=== PATIENT | male | born 1960 | race Caucasian/White ===

== ENCOUNTER → 2017-02-16 | Outpatient (CLI) | payer BC ==
[2017-02-16 08:26] LABS: ABSOLUTE BASOPHILS # (AUTO) 0.1 10^3/uL (0.0-0.2); ABSOLUTE EOSINOPHILS # (AUTO) 0.2 10^3/uL (0.0-0.6); ABSOLUTE LYMPHOCYTES (AUTO) 2.3 10^3/uL (0.5-4.7); ABSOLUTE MONOCYTES (AUTO) 0.5 10^3/uL (0.1-1.4); ABSOLUTE NEUT (AUTO) 5.9 10^3/uL (1.7-8.2); BASOPHILS % (AUTO) 0.9 % (0-2); EOSINOPHILS % (AUTO) 2.3 % (0-6); HEMATOCRIT 47.2 % (37.9-51.0); HEMOGLOBIN 16.6 g/dL (13.5-17.0); HGB HCT DIFFERENCE 2.6; LYMPHOCYTES % (AUTO) 25.3 % (13-45); MEAN CORPUSCULAR HEMOGLOBIN 32.5 pg (27.0-33.4); MEAN CORPUSCULAR HGB CONC 35.1 g/dL (32.0-36.0); MEAN CORPUSCULAR VOLUME 93 fl (80-97); MONOCYTES % (AUTO) 5.3 % (3-13); SEGMENTED NEUTROPHILS % (AUTO) 66.2 % (42-78); WHITE BLOOD COUNT 8.9 10^3/uL (4.0-10.5)
[2017-02-16 08:43] LABS: ALANINE AMINOTRANSFERASE 48 U/L (21-72); ALBUMIN 3.9 g/dL (3.5-5.0); ALKALINE PHOSPHATASE 116 U/L (38-126); ANION GAP 11 (5-19); ASPARTATE AMINO TRANSFERASE 35 U/L (17-59); BILIRUBIN,DIRECT 0.3 mg/dL (0.0-0.4); BILIRUBIN,TOTAL 0.9 mg/dL (0.2-1.3); BLOOD UREA NITROGEN 11 mg/dL (7-20); CALCIUM 9.5 mg/dL (8.4-10.2); CARBON DIOXIDE 24 mmol/L (22-30); CHLORIDE 100 mmol/L (98-107); CHOLESTEROL 184.84 mg/dL (0-200); CREATININE RESULT 0.74 mg/dL (0.52-1.25); Direct HDL 28 mg/dL (>40); GLUCOSE 316 mg/dL (75-110); SODIUM 134.9 mmol/L (137-145); TOTAL PROTEIN 6.9 g/dL (6.3-8.2); TRIGLYCERIDES 222 mg/dL (<150)
[2017-02-16 08:54] LABS: DIRECT LDL 129 mg/dL (<100)
[2017-02-16 09:14] LABS: VLDL CHOLESTEROL 44.4 mg/dL (10-31)
[2017-02-18 07:53] LABS: C-PEPTIDE 4.1 ng/mL (1.1-4.4); INSULIN 15.7 uIU/mL (2.6-24.9)
== END ==
LOC: OD 07:27
PROVIDERS: ATTEND Internal Medicine
DX: E78.5 Hyperlipidemia, unspecified (principal); R35.1 Nocturia; E11.9 Type 2 diabetes mellitus without complications; I10 Essential (primary) hypertension; R53.82 Chronic fatigue, unspecified
CPT/HCPCS: 36415; 80053; 80061; 82043; 83036; 83525; 84153; 84403; 84443; 84681; 85025

== ENCOUNTER → 2017-09-07 | Outpatient (CLI) | payer BC ==
[2017-09-07 07:51] LABS: ABSOLUTE BASOPHILS # (AUTO) 0.1 10^3/uL (0.0-0.2); ABSOLUTE EOSINOPHILS # (AUTO) 0.3 10^3/uL (0.0-0.6); ABSOLUTE LYMPHOCYTES (AUTO) 2.9 10^3/uL (0.5-4.7); ABSOLUTE MONOCYTES (AUTO) 0.7 10^3/uL (0.1-1.4); ABSOLUTE NEUT (AUTO) 8.4 10^3/uL (1.7-8.2); BASOPHILS % (AUTO) 1.2 % (0-2); EOSINOPHILS % (AUTO) 2.5 % (0-6); HEMATOCRIT 48.4 % (37.9-51.0); HEMOGLOBIN 16.9 g/dL (13.5-17.0); LYMPHOCYTES % (AUTO) 23.6 % (13-45); MEAN CORPUSCULAR VOLUME 91 fl (80-97); MONOCYTES % (AUTO) 5.3 % (3-13); PLATELET COUNT 271 10^3/uL (150-450); RED CELL DISTRIBUTION WIDTH 13.5 % (11.5-14.0); SEGMENTED NEUTROPHILS % (AUTO) 67.4 % (42-78); TOTAL CELLS COUNTED % (AUTO) 100 %; WHITE BLOOD COUNT 12.4 10^3/uL (4.0-10.5)
[2017-09-07 08:13] LABS: ALANINE AMINOTRANSFERASE 39 U/L (21-72); ALBUMIN 4.3 g/dL (3.5-5.0); ALKALINE PHOSPHATASE 120 U/L (38-126); ANION GAP 11 (5-19); ASPARTATE AMINO TRANSFERASE 20 U/L (17-59); BILIRUBIN,DIRECT 0.3 mg/dL (0.0-0.4); BILIRUBIN,TOTAL 0.6 mg/dL (0.2-1.3); BLOOD UREA NITROGEN 11 mg/dL (7-20); CARBON DIOXIDE 30 mmol/L (22-30); CHLORIDE 97 mmol/L (98-107); CHOLESTEROL 190.07 mg/dL (0-200); GLUCOSE 221 mg/dL (75-110); POTASSIUM 4.5 mmol/L (3.6-5.0); SODIUM 138.3 mmol/L (137-145); TOTAL PROTEIN 7.1 g/dL (6.3-8.2); TRIGLYCERIDES 304 mg/dL (<150)
[2017-09-07 08:23] LABS: DIRECT LDL 122 mg/dL (<100)
[2017-09-07 08:27] LABS: VLDL CHOLESTEROL 60.8 mg/dL (10-31)
== END ==
LOC: OD 07:08
PROVIDERS: ATTEND Internal Medicine
DX: E11.9 Type 2 diabetes mellitus without complications (principal); I10 Essential (primary) hypertension; E78.5 Hyperlipidemia, unspecified
CPT/HCPCS: 36415; 80053; 80061; 83036; 85025

== ENCOUNTER → 2018-04-23 | Outpatient (CLI) | payer BC ==
[2018-04-23 08:07] LABS: ABSOLUTE BASOPHILS # (AUTO) 0.1 10^3/uL (0.0-0.2); ABSOLUTE EOSINOPHILS # (AUTO) 0.3 10^3/uL (0.0-0.6); ABSOLUTE LYMPHOCYTES (AUTO) 2.9 10^3/uL (0.5-4.7); ABSOLUTE MONOCYTES (AUTO) 0.6 10^3/uL (0.1-1.4); ABSOLUTE NEUT (AUTO) 6.9 10^3/uL (1.7-8.2); BASOPHILS % (AUTO) 1.4 % (0-2); EOSINOPHILS % (AUTO) 2.8 % (0-6); HEMATOCRIT 46.2 % (37.9-51.0); HEMOGLOBIN 16.5 g/dL (13.5-17.0); LYMPHOCYTES % (AUTO) 26.5 % (13-45); MEAN CORPUSCULAR HEMOGLOBIN 32.7 pg (27.0-33.4); MEAN CORPUSCULAR HGB CONC 35.7 g/dL (32.0-36.0); MEAN CORPUSCULAR VOLUME 91 fl (80-97); MONOCYTES % (AUTO) 5.5 % (3-13); PLATELET COUNT 237 10^3/uL (150-450); RED BLOOD COUNT 5.06 10^6/uL (4.35-5.55); RED CELL DISTRIBUTION WIDTH 13.7 % (11.5-14.0); SEGMENTED NEUTROPHILS % (AUTO) 63.8 % (42-78); TOTAL CELLS COUNTED % (AUTO) 100 %; WHITE BLOOD COUNT 10.8 10^3/uL (4.0-10.5)
[2018-04-23 08:28] LABS: ALANINE AMINOTRANSFERASE 30 U/L (21-72); ALBUMIN 4.4 g/dL (3.5-5.0); ALKALINE PHOSPHATASE 98 U/L (38-126); ANION GAP 14 (5-19); ASPARTATE AMINO TRANSFERASE 29 U/L (17-59); BILIRUBIN,DIRECT 0.3 mg/dL (0.0-0.4); BLOOD UREA NITROGEN 13 mg/dL (7-20); CALCIUM 9.8 mg/dL (8.4-10.2); CARBON DIOXIDE 23 mmol/L (22-30); CHLORIDE 103 mmol/L (98-107); CHOLESTEROL 198.16 mg/dL (0-200); GLUCOSE 197 mg/dL (75-110); POTASSIUM 4.1 mmol/L (3.6-5.0); TOTAL PROTEIN 7.7 g/dL (6.3-8.2); TRIGLYCERIDES 182 mg/dL (<150)
[2018-04-23 08:39] LABS: DIRECT LDL 134 mg/dL (<100)
[2018-04-23 08:41] LABS: VLDL CHOLESTEROL 36.4 mg/dL (10-31)
== END ==
LOC: OD 07:42
PROVIDERS: ATTEND Internal Medicine
DX: E11.9 Type 2 diabetes mellitus without complications (principal); I10 Essential (primary) hypertension; E78.5 Hyperlipidemia, unspecified
CPT/HCPCS: 36415; 80053; 80061; 83036; 85025

== ENCOUNTER → 2018-08-19 | Outpatient (CLI) | payer BC ==
[2018-08-19 08:24] LABS: ABSOLUTE BASOPHILS # (AUTO) 0.1 10^3/uL (0.0-0.2); ABSOLUTE EOSINOPHILS # (AUTO) 0.3 10^3/uL (0.0-0.6); ABSOLUTE LYMPHOCYTES (AUTO) 2.2 10^3/uL (0.5-4.7); ABSOLUTE MONOCYTES (AUTO) 0.6 10^3/uL (0.1-1.4); ABSOLUTE NEUT (AUTO) 8.8 10^3/uL (1.7-8.2); BASOPHILS % (AUTO) 0.7 % (0-2); EOSINOPHILS % (AUTO) 2.3 % (0-6); HEMATOCRIT 47.8 % (37.9-51.0); HEMOGLOBIN 16.4 g/dL (13.5-17.0); LYMPHOCYTES % (AUTO) 18.3 % (13-45); MEAN CORPUSCULAR HEMOGLOBIN 31.6 pg (27.0-33.4); MEAN CORPUSCULAR HGB CONC 34.4 g/dL (32.0-36.0); MEAN CORPUSCULAR VOLUME 92 fl (80-97); MONOCYTES % (AUTO) 5.1 % (3-13); PLATELET COUNT 185 10^3/uL (150-450); RED CELL DISTRIBUTION WIDTH 13.1 % (11.5-14.0); SEGMENTED NEUTROPHILS % (AUTO) 73.6 % (42-78); TOTAL CELLS COUNTED % (AUTO) 100 %; WHITE BLOOD COUNT 11.9 10^3/uL (4.0-10.5)
[2018-08-19 08:49] LABS: ALANINE AMINOTRANSFERASE 17 U/L (21-72); ALBUMIN 4.6 g/dL (3.5-5.0); ALKALINE PHOSPHATASE 102 U/L (38-126); ANION GAP 15 (5-19); ASPARTATE AMINO TRANSFERASE 32 U/L (17-59); BILIRUBIN,DIRECT 0.3 mg/dL (0.0-0.4); BILIRUBIN,TOTAL 0.8 mg/dL (0.2-1.3); BLOOD UREA NITROGEN 9 mg/dL (7-20); CALCIUM 9.9 mg/dL (8.4-10.2); CARBON DIOXIDE 28 mmol/L (22-30); CHLORIDE 98 mmol/L (98-107); CHOLESTEROL 190.04 mg/dL (0-200); GLUCOSE 173 mg/dL (75-110); SODIUM 141.4 mmol/L (137-145); TOTAL PROTEIN 7.8 g/dL (6.3-8.2); TRIGLYCERIDES 151 mg/dL (<150)
[2018-08-19 09:00] LABS: DIRECT LDL 153 mg/dL (<100)
[2018-08-19 09:03] LABS: VLDL CHOLESTEROL 30.2 mg/dL (10-31)
[2018-08-19 09:54] LABS: PLATELET COMMENT ADEQUATE; RBC MORPHOLOGY COMMENT NORMO-CYTIC/CHROMIC
== END ==
LOC: OD 07:06
PROVIDERS: ATTEND Internal Medicine
DX: E11.8 Type 2 diabetes mellitus with unspecified complications (principal); I10 Essential (primary) hypertension; E78.5 Hyperlipidemia, unspecified; K57.90 Diverticulosis of intestine, part unspecified, without perforation or abscess without bleeding
CPT/HCPCS: 36415; 80053; 80061; 83036; 85025

== ENCOUNTER → 2018-08-23 | Outpatient (CLI) | payer BC ==
--- NOTE | 2018-08-26 12:05 | RADIOLOGY REPORT (SQ) ---
EXAM DESCRIPTION: MRI ABDOMEN COMBO COMPLETED DATE/TIME: 08/23/2018 7:40 pm REASON FOR STUDY: R19.00 INTRA-ABD AND PELVIC SWELLING, MASS AND LUMP, UNSP SITE R19.00 INTRA-ABD A ND PELVIC SWELLING, MASS AND LUMP, UNSP SI COMPARISON: No direct comparisons available. Correlation is made with 08/20/2018 CT abdomen report. TECHNIQUE: T1, T1 in and out of phase, T2 fat sat, T1 post gadolinium sequences. CONTRAST TYPE AND DOSE: 20 mL Dotarem. RENAL FUNCTION: GFR > 60. LIMITATIONS: None. FINDINGS: LIVER: Normal size. No masses. No dilated ducts. CBD normal. SPLEEN: Heterogeneous appearance with slightly hypoenhancing round nodule extending off the anterior mid spleen. This measures just under 4.5 cm. PANCREAS: Normal signal and enhancement throughout the head, body and most of the tail. Along the ta il of the pancreas, there is lobular intermediate T1 signal which partially enhances and extends to t he splenic hilum. Slightly lobulated appearance. Unclear if this is related to varices or true soft tissue mass. The region of abnormality measures at least 7 cm maximal dimension. GALLBLADDER: No masses. No stones. No gallbladder wall thickening or pericholecystic fluid. ADRENAL GLANDS: No significant masses or asymmetry. RIGHT KIDNEY AND URETER: No masses. No hydronephrosis. LEFT KIDNEY AND URETER: No masses. No hydronephrosis. AORTA AND VESSELS: Normal caliber aorta. Patent major arterial branches. Patent venous structures i ncluding the splenic vein as it courses along the tail of the pancreas. RETROPERITONEUM: No retroperitoneal adenopathy, hemorrhage or masses. BOWEL: No visualized masses. No inflammation. No significant dilatation. ABDOMINAL WALL AND PERITONEUM: No hernias. No free fluid. BONES: No acute or significant findings. OTHER: No other significant finding. IMPRESSION: 1. Mass along the tail of the pancreas. Unclear if this represents a solid lesion, sple nules or varices. Direct comparison with the prior CT is recommended. Addendum can be added to this report. Further evaluation with ultrasound may also be helpful. TECHNICAL DOCUMENTATION: JOB ID: [id number] [employer]- All Rights Reserved Reading location - IP/workstation name: [email or web address]
== END ==
LOC: RAD 19:05
PROVIDERS: ATTEND Internal Medicine
DX: K86.9 Disease of pancreas, unspecified (principal); R19.00 Intra-abdominal and pelvic swelling, mass and lump, unspecified site
CPT/HCPCS: 74183; 82565

== ENCOUNTER 2018-09-12 11:57 | Inpatient (IN) | payer BC ==
[2018-09-09 11:30] LABS: ABSOLUTE BASOPHILS # (AUTO) 0.1 10^3/uL (0.0-0.2); ABSOLUTE EOSINOPHILS # (AUTO) 0.2 10^3/uL (0.0-0.6); ABSOLUTE LYMPHOCYTES (AUTO) 1.7 10^3/uL (0.5-4.7); ABSOLUTE MONOCYTES (AUTO) 0.6 10^3/uL (0.1-1.4); ABSOLUTE NEUT (AUTO) 9.2 10^3/uL (1.7-8.2); BASOPHILS % (AUTO) 0.8 % (0-2); EOSINOPHILS % (AUTO) 1.9 % (0-6); HEMATOCRIT 42.4 % (37.9-51.0); HEMOGLOBIN 14.8 g/dL (13.5-17.0); LYMPHOCYTES % (AUTO) 14.2 % (13-45); MEAN CORPUSCULAR HEMOGLOBIN 31.5 pg (27.0-33.4); MEAN CORPUSCULAR VOLUME 90 fl (80-97); MONOCYTES % (AUTO) 5.4 % (3-13); PLATELET COUNT 140 10^3/uL (150-450); RED BLOOD COUNT 4.71 10^6/uL (4.35-5.55); RED CELL DISTRIBUTION WIDTH 12.9 % (11.5-14.0); SEGMENTED NEUTROPHILS % (AUTO) 77.7 % (42-78); TOTAL CELLS COUNTED % (AUTO) 100 %; WHITE BLOOD COUNT 11.9 10^3/uL (4.0-10.5)
[2018-09-09 11:33] LABS: INTERNATIONAL RATION (INR) 0.99; PROTHROMBIN TIME 13.6 SEC (11.4-15.4)
[2018-09-09 11:34] LABS: PARTIAL THROMBOPLASTIN TIME 32.9 SEC (23.5-35.8)
[2018-09-09 11:54] LABS: SODIUM 133.7 mmol/L (137-145)
--- NOTE | 2018-09-09 12:26 | RADIOLOGY REPORT (SQ) ---
EXAM DESCRIPTION: CHEST PA/LATERAL COMPLETED DATE/TIME: 09/09/2018 11:41 am REASON FOR STUDY: PRE-OP COMPARISON: 07/12/2010 EXAM PARAMETERS: NUMBER OF VIEWS: two views TECHNIQUE: Digital Frontal and Lateral radiographic views of the chest acquired. RADIATION DOSE: NA LIMITATIONS: none FINDINGS: LUNGS AND PLEURA: No opacities, masses or pneumothorax. No pleural effusion. MEDIASTINUM AND HILAR STRUCTURES: No masses or contour abnormalities. HEART AND VASCULAR STRUCTURES: Heart normal size. No evidence for failure. BONES: No acute findings. HARDWARE: None in the chest. OTHER: No other significant finding. IMPRESSION: NO SIGNIFICANT RADIOGRAPHIC FINDING IN THE CHEST. TECHNICAL DOCUMENTATION: JOB ID: [id number] [employer]- All Rights Reserved Reading location - IP/workstation name: [email or web address]
--- NOTE | 2018-09-09 16:32 | EKG REPORT ---
SEVERITY:- NORMAL ECG - SINUS RHYTHM : Confirmed by: Jody Lou MD 09-Sep-2018 16:32:32
[~2018-09-12 11:57] MED LIST: DEXAMETHASONE SOD PHOSPHATE INJ 4 MG/1 ML VIAL ONE; GLYCOPYRROLATE 1 MG/5 ML SYRINGE ONE; HEP B VACCINE/DP(A)T-POLIO INJ/PF 0.5 ML DISP.SYRIN IM PRN; LACTATED RINGERS 1000 ML IV PRN; LIDOCAINE 0.5% INJ-PF (5 MG/ML) 50 ML SDV SUBCUT PRN; NEOSTIGMINE METHYLSULFATE 10 MG/10 ML VIAL ONE; ONDANSETRON HCL INJ/PF 4 MG/2 ML SDV ONE; ROCURONIUM BROMIDE INJ 50 MG/5 ML VIAL IV ONE; SUCCINYLCHOLINE CHLORIDE INJ 200 MG/10 ML VIAL ONE
[2018-09-12] MEDS ORDERED: HYDROMORPHONE HCL INJ/PF 2 MG/ML AMPULE ONE (12:02)
[2018-09-12] MEDS ORDERED: ACETAMINOPHEN 1,000 MG/100 ML RTUPB IV ONE (12:03)
[2018-09-12] MEDS ORDERED: PROPOFOL INJ 200 MG/20 ML VIAL IV ONE (12:03)
[2018-09-12] MEDS ORDERED: MIDAZOLAM 2 MG/2 ML INJ ONE (12:03)
[2018-09-12] MEDS ORDERED: FENTANYL CITRATE INJ/PF 100 MCG/2 ML AMPUL ONE ×2 (12:03→16:31)
[2018-09-12] MEDS ORDERED: LIDOCAINE 2% INJ-PF (20 MG/ML) 10 ML AMPUL ONE (12:15)
[2018-09-12] MEDS ORDERED: BUPIVACAINE HCL 0.25% /EPINEPHRINE INJ/PF 30 ML SDV ONE (13:08)
[2018-09-12] MEDS ORDERED: METRONIDAZOLE 500 MG/NS RTU 500 MG/100 ML RTUPB IV ONE (13:55)
[2018-09-12] MEDS ORDERED: CEFAZOLIN INJ 1 GM VIAL ONE (13:55)
[2018-09-12] MEDS ORDERED: PROMETHAZINE HCL INJ 25 MG/1 ML VIAL IV PRN (15:17)
[2018-09-12] MEDS ORDERED: MEPERIDINE HCL/PF INJ 25 MG/1 ML DISP.SYRIN IV PRN (15:17)
[2018-09-12] MEDS ORDERED: MORPHINE SULFATE 10 MG/ML INJ IV PRN (15:17)
[2018-09-12] MEDS ORDERED: DIPHENHYDRAMINE HCL 50 MG/ML VIAL IV PRN (15:17)
[2018-09-12] MEDS ORDERED: FENTANYL CITRATE INJ/PF 100 MCG/2 ML AMPUL IV PRN ×3 (15:17)
[2018-09-12] MEDS: FENTANYL CITRATE INJ/PF 100 MCG/2 ML AMPUL ONE ×2 (17:18→17:23)
--- NOTE | 2018-09-12 17:54 | Operative Report ---
Operative Report DATE OF SURGERY: 09/12/18 PREOPERATIVE DIAGNOSIS: pancreatic mass POSTOPERATIVE DIAGNOSIS: pancreatic mass OPERATION: distal pancreatectomy/splenectomy SURGEON: MARGY RODRIGUEZ ANESTHESIA: GA TISSUE REMOVED OR ALTERED: pancrease and spleen COMPLICATIONS: none ESTIMATED BLOOD LOSS: 600cc INTRAOPERATIVE FINDINGS: large mass involving the body and tail pancrease and spleen PROCEDURE: Patient was brought to the operating room in awaken and stable condition placed the operative table supine position and induced under general anesthesia After adequate prep and drape needle was placed into the umbilicus and the abdomen was insufflated with 6 L of CO2 gas supraumbilical 10 mm incision was made with a 10 blade 10 mm port was placed into the abdominal cavity intra- abdominal visualization revealed no evidence of a varies needle or trocar injury To epigastric 5 mm ports were placed under direct vision a right left upper quadrant 5 mm port in the right lower quadrant 12 mm port all under direct vision Attention immediately to the stomach we began taking down the gastric colic ligament between the mid greater curvature the stomach and the angle of Hiss this was done with the LigaSure device. We reached the top of the stomach near the left slip of the aniket C RUC it became obvious that spleen and tail the pancreas had eroded itself to the left use of the diaphragm to build bulky mass involving the hilum. Came obvious at this point that this would not be resectable using laparoscopic technique and therefore like to to perform an open laparotomy. Which were removed pneumoperitoneum was reduced and a midline incision was made from the xiphoid to just below the umbilicus was carried down through subcutaneous tissue with Bovie cautery the midline fascia was entered with Bovie cautery. The falciform falciform ligament was divided with the LigaSure device to gain access to the upper abdomen we then placed a Bookwalter retractor in the upper abdomen and use the tract costal margin cephalad. The triangular ligament of the left lobe liver was taken down with the Bovie cautery to retracted medially to gain access to the left slip of the aniket. Completed the division of the gastrocolic ligament all the way tothe aniket and realized that the pancreas and spleen were fixed posteriorly to the gerotas fascia of the left kidney I did then incised the peritoneum the retroperitoneum on the inferior border of the pancreas at its mid body to the left of the left gastric artery and then came across the body the pancreas with 2 firings of the end of the LIBRADO stapler with a green load. We divided the pancreas to continue our mobilization of it towards the hilum of the spleen was able to take down the posterior splenic attachments with blunt and sharp dissection using Bovie cautery. It was completed we were able to remove the spleen and tail the pancreas as a unit and the down the pathology hemostasis was obtained with Bovie cautery and the LigaSure device then copiously irrigated the upper abdomen with normal saline and dry check the stomach for integrity noting a couple of serosal that were repaired with interrupted 2-0 silk oversewed the body of the pancreas fishmouth style using several sutures of 0 PDS. We then placed a Tian-Bell drain in the left upper quadrant next to the body this pancreas brought out through a stab wound in the left upper quadrant we then closed the midline fascia with a running double looped 0 PDS suture and then closed the skin with standard skin clips. Blood loss for the procedure was approximately 600 cc sponge needle counts were correct x2 the patient was awakened in the operating room extubated transferred to recovery in stable condition
[2018-09-12] MEDS ORDERED: MORPHINE SULFATE 60 MG/60 ML RTUINJ IV PRN (17:58)
[2018-09-12] MEDS: CEFAZOLIN 1 GM/D5W RTU 1 GM/50 ML RTUPB IV SCH (19:30)
[2018-09-12] MEDS ORDERED: POTASSI CL 30 MEQ/D5-1/2NS 1L 30 MEQ/1,000 ML RTUINJ IV PRN (20:00)
[2018-09-12] MEDS: METRONIDAZOLE 500 MG/NS RTU 500 MG/100 ML RTUPB IV SCH (21:20)
[2018-09-12] MEDS: HEPARIN SOD (PORCINE) 5,000 UNIT/ML 1 ML SYRINGE SUBCUT SCH (21:23)
[2018-09-12] MEDS ORDERED: DEXTROSE 40% GEL 15 GM TUBE X 2 PO PRN (23:00)
[2018-09-12] MEDS ORDERED: DEXTROSE 50%-WATER SYRINGE 12.5 GM/25 ML DOSE IV PRN (23:00)
[2018-09-12] MEDS ORDERED: DEXTROSE 50%-WATER SYRINGE 25 GM/50 ML DOSE IV PRN (23:00)
[2018-09-12] MEDS ORDERED: GLUCAGON,HUMAN RECOMB 1 MG INJ IM PRN (23:00)
[2018-09-12] MEDS ORDERED: DEXTROSE 40% GEL 15 GM TUBE PO PRN (23:00)
[2018-09-12] MEDS: INSULIN LISPRO 100 UNIT/ML 3 ML VIAL SUBCUT PRN (23:35)
[2018-09-13] MEDS: CEFAZOLIN 1 GM/D5W RTU 1 GM/50 ML RTUPB IV SCH ×3 (01:15→17:43)
[2018-09-13] MEDS: METRONIDAZOLE 500 MG/NS RTU 500 MG/100 ML RTUPB IV SCH ×3 (05:12→22:11)
[2018-09-13] MEDS: INSULIN LISPRO 100 UNIT/ML 3 ML VIAL SUBCUT PRN ×4 (06:48→22:23)
--- NOTE | 2018-09-13 08:24 | PDOC PROGRESS REPORT ---
Subjective Progress Note for:: 09/13/18 - pod #1 Reason For Visit: R19.02 LEFT UPPER QUADRANT ABDOMINAL SWELLING, MAS Physical Exam Vital Signs: Temp Pulse Resp BP Pulse Ox 98.7 F 104 H 16 132/76 H 98 09/12/18 23:35 09/12/18 23:35 09/12/18 23:35 09/12/18 23:35 09/12/18 23:35 Intake & Output 09/12/18 09/13/18 09/14/18 06:59 06:59 06:59 Intake Total 6990 Output Total 2195 Balance 4795 Weight 102.06 kg 100.4 kg General appearance: PRESENT: no acute distress Eye exam: PRESENT: EOMI, PERRLA GI/Abdominal exam: PRESENT: soft, tenderness - incisional tenderness rik with sero/sang op Results Laboratory Results: 09/09/18 10:48 09/12/18 12:29 09/12/18 12:29 Potassium 4.0 Glucose 243 H Impressions: Chest X-Ray 09/09/18 11:35 IMPRESSION: NO SIGNIFICANT RADIOGRAPHIC FINDING IN THE CHEST. Assessment & Plan - Plan Summary Plan Summary: up to chair today 'cont only ice chips cont mcclain till am labs pending insulin sliding scale.
[2018-09-13] MEDS: HEPARIN SOD (PORCINE) 5,000 UNIT/ML 1 ML SYRINGE SUBCUT SCH ×2 (09:42→22:11)
[2018-09-13] MEDS ORDERED: HEPARIN SOD (PORCINE) 5,000 UNIT/ML 1 ML SYRINGE ONE (09:46)
--- NOTE | 2018-09-13 13:56 | RADIOLOGY REPORT (SQ) ---
EXAM DESCRIPTION: KUB/ABDOMEN (SINGLE VIEW) COMPLETED DATE/TIME: 09/13/2018 1:48 pm REASON FOR STUDY: Check Placement of NG Tube R19.02 LEFT UPPER QUADRANT ABDOMINAL SWELLING, MASS AN D LUMP COMPARISON: MRI abdomen 08/23/2018 NUMBER OF VIEWS: One view. TECHNIQUE: Supine radiographic image of the abdomen acquired. LIMITATIONS: None. FINDINGS: BOWEL GAS PATTERN: Normal bowel gas pattern. No dilated loops. CALCIFICATIONS: No suspicious calcifications. SOFT TISSUES: No gross mass or suggestion of organomegaly. HARDWARE: Nasogastric tube tip and side port in the stomach. Left upper quadrant Tian-Bell drain . Midline abdominal skin jose. BONES: No acute fracture. No worrisome bone lesions. OTHER: No other significant finding. IMPRESSION: Nasogastric tube tip and side port in the stomach. Left upper quadrant Tian-Bell dr nickerson. Grossly nonobstructive bowel gas pattern TECHNICAL DOCUMENTATION: JOB ID: [id number] [employer]- All Rights Reserved Reading location - IP/workstation name: [email or web address]
[2018-09-14] MEDS: CEFAZOLIN 1 GM/D5W RTU 1 GM/50 ML RTUPB IV SCH ×3 (02:13→17:22)
[2018-09-14] MEDS: METRONIDAZOLE 500 MG/NS RTU 500 MG/100 ML RTUPB IV SCH ×3 (06:03→22:04)
--- NOTE | 2018-09-14 09:38 | PDOC PROGRESS REPORT ---
Subjective Progress Note for:: 09/14/18 - pod 2 Reason For Visit: R19.02 LEFT UPPER QUADRANT ABDOMINAL SWELLING, MAS Physical Exam Vital Signs: Temp Pulse Resp BP Pulse Ox 98.3 F 107 H 16 120/70 92 09/14/18 00:00 09/14/18 00:00 09/14/18 00:00 09/14/18 00:00 09/14/18 00:00 Intake & Output 09/13/18 09/14/18 09/15/18 06:59 06:59 06:59 Intake Total 6990 1070 100 Output Total 2195 3740 Balance 4795 -2670 100 Weight 100.4 kg 100.4 kg General appearance: PRESENT: no acute distress, cooperative GI/Abdominal exam: PRESENT: soft - abd soft, non tender few bs rki serous Results Laboratory Results: 09/09/18 10:48 09/12/18 12:29 Impressions: Chest X-Ray 09/09/18 11:35 IMPRESSION: NO SIGNIFICANT RADIOGRAPHIC FINDING IN THE CHEST. KUB X-Ray 09/13/18 12:37 IMPRESSION: Nasogastric tube tip and side port in the stomach. Left upper quadrant Tian-Bell drain. Grossly nonobstructive bowel gas pattern Assessment & Plan - Plan Summary Plan Summary: will clamp ng and check residuals remove mcclain
[2018-09-14] MEDS: HEPARIN SOD (PORCINE) 5,000 UNIT/ML 1 ML SYRINGE SUBCUT SCH ×2 (09:59→22:04)
[2018-09-14 11:09] LABS: HEMATOCRIT 34.9 % (37.9-51.0); HEMOGLOBIN 11.9 g/dL (13.5-17.0); MEAN CORPUSCULAR HEMOGLOBIN 31.2 pg (27.0-33.4); MEAN CORPUSCULAR HGB CONC 34.1 g/dL (32.0-36.0); MEAN CORPUSCULAR VOLUME 92 fl (80-97); PLATELET COUNT 302 10^3/uL (150-450); RED BLOOD COUNT 3.81 10^6/uL (4.35-5.55); WHITE BLOOD COUNT 26.4 10^3/uL (4.0-10.5)
[2018-09-14 11:27] LABS: ABSOLUTE LYMPHOCYTES# (MANUAL) 0.5 10^3/uL (0.5-4.7); ABSOLUTE MONOCYTES # (MANUAL) 1.8 10^3/uL (0.1-1.4); BASOPHILS % (MANUAL) 0 % (0-2); EOSINOPHILS % (MANUAL) 0 % (0-6); LYMPHOCYTES % (MANUAL) 2 % (13-45); MONOCYTES % (MANUAL) 7 % (3-13); SEGMENTED NEUTROPHILS % (MAN) 91 % (42-78); TOTAL CELLS COUNTED 100
[2018-09-14 11:28] LABS: PLATELET COMMENT ADEQUATE; RBC MORPHOLOGY COMMENT NORMO-CYTIC/CHROMIC
[2018-09-14 11:32] LABS: ANION GAP 13 (5-19); BLOOD UREA NITROGEN 15 mg/dL (7-20); CALCIUM 8.8 mg/dL (8.4-10.2); CARBON DIOXIDE 22 mmol/L (22-30); CHLORIDE 106 mmol/L (98-107); GLUCOSE 290 mg/dL (75-110); POTASSIUM 4.2 mmol/L (3.6-5.0); SODIUM 140.8 mmol/L (137-145)
[2018-09-14] MEDS: INSULIN LISPRO 100 UNIT/ML 3 ML VIAL SUBCUT PRN (14:13)
[2018-09-15] MEDS: INSULIN LISPRO 100 UNIT/ML 3 ML VIAL SUBCUT PRN ×5 (00:13→22:13)
[2018-09-15] MEDS: CEFAZOLIN 1 GM/D5W RTU 1 GM/50 ML RTUPB IV SCH ×3 (02:31→18:04)
[2018-09-15] MEDS: METRONIDAZOLE 500 MG/NS RTU 500 MG/100 ML RTUPB IV SCH ×3 (06:15→22:14)
--- NOTE | 2018-09-15 10:04 | PDOC PROGRESS REPORT ---
Subjective Progress Note for:: 09/15/18 Reason For Visit: R19.02 LEFT UPPER QUADRANT ABDOMINAL SWELLING, MAS post op day three mild c/o luq pain mostly in bed, did not ambulate yesterday Physical Exam Vital Signs: Temp Pulse Resp BP Pulse Ox 98.6 F 99 16 142/71 H 94 09/14/18 23:27 09/14/18 23:27 09/14/18 23:27 09/14/18 23:27 09/14/18 23:27 Intake & Output 09/14/18 09/15/18 09/16/18 06:59 06:59 06:59 Intake Total 1070 450 100 Output Total 3740 2080 Balance -2670 -1630 100 Weight 100.4 kg 100.4 kg Respiratory exam: PRESENT: clear to auscultation merissa, unlabored GI/Abdominal exam: PRESENT: other - abd soft, min tenderness, few bs rik with dark drainage, old blood vs pancreatic fluid mixed with blood. Results Laboratory Results: 09/14/18 10:07 09/14/18 10:07 09/14/18 09/14/18 10:07 10:07 WBC 26.4 H RBC 3.81 L Hgb 11.9 L Hct 34.9 L MCV 92 MCH 31.2 MCHC 34.1 RDW 13.0 Plt Count 302 Seg Neutrophils % Not Reportable Lymphocytes % Not Reportable Monocytes % Not Reportable Eosinophils % Not Reportable Basophils % Not Reportable Absolute Neutrophils Not Reportable Absolute Lymphocytes Not Reportable Absolute Monocytes Not Reportable Absolute Eosinophils Not Reportable Absolute Basophils Not Reportable Sodium 140.8 Potassium 4.2 Chloride 106 Carbon Dioxide 22 Anion Gap 13 BUN 15 Creatinine 0.80 Est GFR ( Amer) > 60 Est GFR (Non-Af Amer) > 60 Glucose 290 H Calcium 8.8 Impressions: Chest X-Ray 09/09/18 11:35 IMPRESSION: NO SIGNIFICANT RADIOGRAPHIC FINDING IN THE CHEST. KUB X-Ray 09/13/18 12:37 IMPRESSION: Nasogastric tube tip and side port in the stomach. Left upper quadrant Tian-Bell drain. Grossly nonobstructive bowel gas pattern Assessment & Plan - Plan Summary Plan Summary: no labs drawn today had elevated wbc yesterday will repeat labs today blood glucose improved pt will ambulate more today cont ng suction
[2018-09-15] MEDS: HEPARIN SOD (PORCINE) 5,000 UNIT/ML 1 ML SYRINGE SUBCUT SCH ×2 (10:45→22:13)
[2018-09-15 11:47] LABS: HEMATOCRIT 33.3 % (37.9-51.0); HEMOGLOBIN 11.2 g/dL (13.5-17.0); MEAN CORPUSCULAR HEMOGLOBIN 30.9 pg (27.0-33.4); MEAN CORPUSCULAR HGB CONC 33.7 g/dL (32.0-36.0); MEAN CORPUSCULAR VOLUME 92 fl (80-97); PLATELET COUNT 336 10^3/uL (150-450); RED BLOOD COUNT 3.64 10^6/uL (4.35-5.55); RED CELL DISTRIBUTION WIDTH 12.9 % (11.5-14.0); WHITE BLOOD COUNT 24.5 10^3/uL (4.0-10.5)
[2018-09-15 11:55] LABS: ANION GAP 9 (5-19); BLOOD UREA NITROGEN 15 mg/dL (7-20); CALCIUM 8.7 mg/dL (8.4-10.2); CARBON DIOXIDE 25 mmol/L (22-30); CHLORIDE 110 mmol/L (98-107); GLUCOSE 270 mg/dL (75-110); POTASSIUM 3.8 mmol/L (3.6-5.0); SODIUM 143.5 mmol/L (137-145)
[2018-09-15 12:06] LABS: ABSOLUTE MONOCYTES # (MANUAL) 2.2 10^3/uL (0.1-1.4); ABSOLUTE NEUTROPHILS# (MANUAL) 21.3 10^3/uL (1.7-8.2); BASOPHILS % (MANUAL) 0 % (0-2); EOSINOPHILS % (MANUAL) 0 % (0-6); LYMPHOCYTES % (MANUAL) 4 % (13-45); METAMYELOCYTES % (MANUAL) 1 % (0); MONOCYTES % (MANUAL) 9 % (3-13); SEGMENTED NEUTROPHILS % (MAN) 86 % (42-78); TOTAL CELLS COUNTED 100
[2018-09-15 12:08] LABS: PLATELET CLUMPS PRESENT; PLATELET COMMENT ADEQUATE; POLYCHROMASIA SLIGHT
[2018-09-16] MEDS: CEFAZOLIN 1 GM/D5W RTU 1 GM/50 ML RTUPB IV SCH ×3 (01:37→17:41)
[2018-09-16] MEDS: METRONIDAZOLE 500 MG/NS RTU 500 MG/100 ML RTUPB IV SCH ×3 (05:25→22:15)
--- NOTE | 2018-09-16 06:44 | PDOC PROGRESS REPORT ---
Subjective Progress Note for:: 09/16/18 Reason For Visit: R19.02 LEFT UPPER QUADRANT ABDOMINAL SWELLING, MAS pod # 4 distal pancreatectomy/splenectomy Physical Exam Vital Signs: Temp Pulse Resp BP Pulse Ox 98.2 F 92 19 130/80 H 90 L 09/16/18 00:00 09/16/18 00:00 09/16/18 00:00 09/16/18 00:00 09/16/18 00:00 Intake & Output 09/14/18 09/15/18 09/16/18 06:59 06:59 06:59 Intake Total 1070 450 650 Output Total 3740 2080 580 Balance -2670 -1630 70 Weight 100.4 kg 100.4 kg 98.3 kg General appearance: PRESENT: no acute distress Respiratory exam: PRESENT: clear to auscultation merissa, unlabored GI/Abdominal exam: PRESENT: other - abd soft, non tender wound ok Results Laboratory Results: 09/15/18 11:19 09/15/18 11:19 09/15/18 09/15/18 11:19 11:19 WBC 24.5 H RBC 3.64 L Hgb 11.2 L Hct 33.3 L MCV 92 MCH 30.9 MCHC 33.7 RDW 12.9 Plt Count 336 Seg Neutrophils % Not Reportable Lymphocytes % Not Reportable Monocytes % Not Reportable Eosinophils % Not Reportable Basophils % Not Reportable Absolute Neutrophils Not Reportable Absolute Lymphocytes Not Reportable Absolute Monocytes Not Reportable Absolute Eosinophils Not Reportable Absolute Basophils Not Reportable Sodium 143.5 Potassium 3.8 Chloride 110 H Carbon Dioxide 25 Anion Gap 9 BUN 15 Creatinine 0.70 Est GFR ( Amer) > 60 Est GFR (Non-Af Amer) > 60 Glucose 270 H Calcium 8.7 Impressions: Chest X-Ray 09/09/18 11:35 IMPRESSION: NO SIGNIFICANT RADIOGRAPHIC FINDING IN THE CHEST. KUB X-Ray 09/13/18 12:37 IMPRESSION: Nasogastric tube tip and side port in the stomach. Left upper quadrant Tian-Bell drain. Grossly nonobstructive bowel gas pattern Assessment & Plan - Plan Summary Plan Summary: still high ng op rik 130 yesterday no flatus, although feels it may start will cont ng today, start clamp trial monitor rik op wbc 24k yesterday- splenectomy awaing labs today cont iv abx.
[2018-09-16] MEDS: NORMAL SALINE 1000 ML 1,000 ML IV PRN (09:17)
[2018-09-16 09:26] LABS: HEMATOCRIT 36.8 % (37.9-51.0); HEMOGLOBIN 12.5 g/dL (13.5-17.0); MEAN CORPUSCULAR HEMOGLOBIN 31.2 pg (27.0-33.4); MEAN CORPUSCULAR HGB CONC 33.8 g/dL (32.0-36.0); MEAN CORPUSCULAR VOLUME 92 fl (80-97); PLATELET COUNT 491 10^3/uL (150-450); RED BLOOD COUNT 3.99 10^6/uL (4.35-5.55); RED CELL DISTRIBUTION WIDTH 12.6 % (11.5-14.0); WHITE BLOOD COUNT 22.8 10^3/uL (4.0-10.5)
[2018-09-16 09:52] LABS: ANION GAP 16 (5-19); BLOOD UREA NITROGEN 17 mg/dL (7-20); CALCIUM 8.9 mg/dL (8.4-10.2); CARBON DIOXIDE 21 mmol/L (22-30); CHLORIDE 112 mmol/L (98-107); GLUCOSE 308 mg/dL (75-110); POTASSIUM 3.8 mmol/L (3.6-5.0)
[2018-09-16] MEDS: HEPARIN SOD (PORCINE) 5,000 UNIT/ML 1 ML SYRINGE SUBCUT SCH ×2 (09:54→22:14)
[2018-09-16 10:01] LABS: ABSOLUTE LYMPHOCYTES# (MANUAL) 1.4 10^3/uL (0.5-4.7); ABSOLUTE MONOCYTES # (MANUAL) 1.4 10^3/uL (0.1-1.4); ABSOLUTE NEUTROPHILS# (MANUAL) 20.1 10^3/uL (1.7-8.2); BASOPHILS % (MANUAL) 0 % (0-2); EOSINOPHILS % (MANUAL) 0 % (0-6); LYMPHOCYTES % (MANUAL) 5 % (13-45); MONOCYTES % (MANUAL) 6 % (3-13); RBC MORPHOLOGY COMMENT NORMO-CYTIC/CHROMIC; SEGMENTED NEUTROPHILS % (MAN) 88 % (42-78); TOTAL CELLS COUNTED 100; TOXIC GRANULATION SLIGHT; TOXIC VACUOLATION PRESENT
[2018-09-16 10:02] LABS: PLATELET CLUMPS PRESENT; PLATELET COMMENT INCREASED; PLATELET LARGE PRESENT
[2018-09-16] MEDS: INSULIN LISPRO 100 UNIT/ML 3 ML VIAL SUBCUT PRN ×3 (11:54→22:15)
[2018-09-17] MEDS: NORMAL SALINE 1000 ML 1,000 ML IV PRN (01:41)
[2018-09-17] MEDS: CEFAZOLIN 1 GM/D5W RTU 1 GM/50 ML RTUPB IV SCH ×3 (01:42→17:40)
[2018-09-17] MEDS: METRONIDAZOLE 500 MG/NS RTU 500 MG/100 ML RTUPB IV SCH ×3 (06:17→22:25)
[2018-09-17] MEDS: INSULIN LISPRO 100 UNIT/ML 3 ML VIAL SUBCUT PRN ×4 (07:55→22:26)
--- NOTE | 2018-09-17 09:44 | PDOC PROGRESS REPORT ---
Subjective Progress Note for:: 09/17/18 Subjective:: Feels well. Hungry. Passing gas. Pain under good control. Reason For Visit: R19.02 LEFT UPPER QUADRANT ABDOMINAL SWELLING, MAS Physical Exam Vital Signs: Temp Pulse Resp BP Pulse Ox 98.2 F 110 H 18 116/76 98 09/17/18 00:00 09/17/18 08:29 09/17/18 08:29 09/17/18 08:29 09/17/18 08:29 Intake & Output 09/16/18 09/17/18 09/18/18 06:59 06:59 06:59 Intake Total 750 842 100 Output Total 580 820 Balance 170 22 100 Weight 98.3 kg 98 kg General appearance: PRESENT: no acute distress, cooperative Respiratory exam: PRESENT: clear to auscultation merissa Cardiovascular exam: PRESENT: tachycardia GI/Abdominal exam: PRESENT: soft - Soft, nondistended, mild diffuse abdominal tenderness with no peritoneal signs. Drain output is serous with no odor. Neurological exam: PRESENT: alert, awake Psychiatric exam: PRESENT: appropriate affect Results Laboratory Results: 09/16/18 09:12 09/16/18 09:12 09/16/18 09/16/18 09:12 09:12 WBC 22.8 H RBC 3.99 L Hgb 12.5 L Hct 36.8 L MCV 92 MCH 31.2 MCHC 33.8 RDW 12.6 Plt Count 491 H Seg Neutrophils % Not Reportable Lymphocytes % Not Reportable Monocytes % Not Reportable Eosinophils % Not Reportable Basophils % Not Reportable Absolute Neutrophils Not Reportable Absolute Lymphocytes Not Reportable Absolute Monocytes Not Reportable Absolute Eosinophils Not Reportable Absolute Basophils Not Reportable Sodium 149.0 H Potassium 3.8 Chloride 112 H Carbon Dioxide 21 L Anion Gap 16 BUN 17 Creatinine 0.72 Est GFR ( Amer) > 60 Est GFR (Non-Af Amer) > 60 Glucose 308 H Calcium 8.9 Impressions: Chest X-Ray 09/09/18 11:35 IMPRESSION: NO SIGNIFICANT RADIOGRAPHIC FINDING IN THE CHEST. KUB X-Ray 09/13/18 12:37 IMPRESSION: Nasogastric tube tip and side port in the stomach. Left upper quadrant Tian-Bell drain. Grossly nonobstructive bowel gas pattern Assessment & Plan - Diagnosis (1) Pancreatic mass Is this a current diagnosis for this admission?: Yes Plan: Status post distal pancreatectomy and splenectomy. Patient appears reasonably well. Mild tachycardia but abdomen is soft with minimal tenderness. NG tube output has been minimal overnight and patient is passing gas. Will DC his NG tube. Will start clear liquids.
[2018-09-17 10:14] LABS: HEMATOCRIT 36.4 % (37.9-51.0); HEMOGLOBIN 12.6 g/dL (13.5-17.0); MEAN CORPUSCULAR HEMOGLOBIN 31.4 pg (27.0-33.4); MEAN CORPUSCULAR HGB CONC 34.5 g/dL (32.0-36.0); MEAN CORPUSCULAR VOLUME 91 fl (80-97); PLATELET COUNT 542 10^3/uL (150-450); RED BLOOD COUNT 3.99 10^6/uL (4.35-5.55); RED CELL DISTRIBUTION WIDTH 12.9 % (11.5-14.0); WHITE BLOOD COUNT 24.6 10^3/uL (4.0-10.5)
[2018-09-17 10:36] LABS: ANION GAP 16 (5-19); BLOOD UREA NITROGEN 19 mg/dL (7-20); CALCIUM 8.9 mg/dL (8.4-10.2); CARBON DIOXIDE 23 mmol/L (22-30); CHLORIDE 112 mmol/L (98-107); GLUCOSE 300 mg/dL (75-110); POTASSIUM 3.7 mmol/L (3.6-5.0); SODIUM 151.2 mmol/L (137-145)
[2018-09-17 10:37] LABS: ABSOLUTE LYMPHOCYTES# (MANUAL) 1.7 10^3/uL (0.5-4.7); ABSOLUTE MONOCYTES # (MANUAL) 1.2 10^3/uL (0.1-1.4); ABSOLUTE NEUTROPHILS# (MANUAL) 21.6 10^3/uL (1.7-8.2); BASOPHILS % (MANUAL) 0 % (0-2); EOSINOPHILS % (MANUAL) 0 % (0-6); LYMPHOCYTES % (MANUAL) 7 % (13-45); MONOCYTES % (MANUAL) 5 % (3-13); PLATELET CLUMPS PRESENT; SEGMENTED NEUTROPHILS % (MAN) 88 % (42-78); TOTAL CELLS COUNTED 100; TOXIC GRANULATION SLIGHT; TOXIC VACUOLATION PRESENT
[2018-09-17] MEDS: HEPARIN SOD (PORCINE) 5,000 UNIT/ML 1 ML SYRINGE SUBCUT SCH ×2 (10:52→22:25)
[2018-09-17] MEDS: OCTREOTIDE ACETATE INJ/PF 100 MCG/1 ML SDV IV SCH ×2 (14:03→22:26)
[2018-09-17] MEDS ORDERED: DEXTROSE 40% GEL 15 GM TUBE PO PRN ×2 (15:09)
[2018-09-17] MEDS ORDERED: DEXTROSE 50%-WATER 25 GM/50 ML DISP.SYRIN IV PRN ×2 (15:09)
[2018-09-17] MEDS ORDERED: GLUCAGON,HUMAN RECOMB 1 MG INJ SUBCUT PRN (15:09)
--- NOTE | 2018-09-17 15:09 | PDOC PROGRESS REPORT ---
Subjective Progress Note for:: 09/17/18 Subjective:: Patient had sudden onset of malaise with nausea and abdominal pain. Was noted with hypotension with systolic blood pressure of 80. Patient denies any presyncopal symptoms at this time but states that he does not feel well. Reason For Visit: R19.02 LEFT UPPER QUADRANT ABDOMINAL SWELLING, MAS Physical Exam Vital Signs: Temp Pulse Resp BP Pulse Ox 98.1 F 115 H 18 117/75 99 09/17/18 11:51 09/17/18 11:51 09/17/18 11:51 09/17/18 11:51 09/17/18 11:51 Intake & Output 09/16/18 09/17/18 09/18/18 06:59 06:59 06:59 Intake Total 750 842 150 Output Total 580 820 50 Balance 170 22 100 Weight 98.3 kg 98 kg General appearance: PRESENT: mild distress Eye exam: PRESENT: conjunctiva pink Cardiovascular exam: PRESENT: tachycardia - Heart rate of 116 with blood pre ssure of 106/70. GI/Abdominal exam: PRESENT: other - Soft, nondistended, tender at is epigastric in the left mid abdomen without peritoneal signs. JF drain has copious amounts of yellow slightly brown tinged clear fluid. After application of suction on the drain about 300 cc drained out with patient feeling much better. Nonbloody output. Results Laboratory Results: 09/17/18 09:43 09/17/18 09:43 09/17/18 09/17/18 09:43 09:43 WBC 24.6 H RBC 3.99 L Hgb 12.6 L Hct 36.4 L MCV 91 MCH 31.4 MCHC 34.5 RDW 12.9 Plt Count 542 H Seg Neutrophils % Not Reportable Lymphocytes % Not Reportable Monocytes % Not Reportable Eosinophils % Not Reportable Basophils % Not Reportable Absolute Neutrophils Not Reportable Absolute Lymphocytes Not Reportable Absolute Monocytes Not Reportable Absolute Eosinophils Not Reportable Absolute Basophils Not Reportable Sodium 151.2 H Potassium 3.7 Chloride 112 H Carbon Dioxide 23 Anion Gap 16 BUN 19 Creatinine 0.75 Est GFR ( Amer) > 60 Est GFR (Non-Af Amer) > 60 Glucose 300 H Calcium 8.9 Impressions: Chest X-Ray 09/09/18 11:35 IMPRESSION: NO SIGNIFICANT RADIOGRAPHIC FINDING IN THE CHEST. KUB X-Ray 09/13/18 12:37 IMPRESSION: Nasogastric tube tip and side port in the stomach. Left upper quadrant Tian-Bell drain. Grossly nonobstructive bowel gas pattern Assessment & Plan - Diagnosis (1) Pancreatic mass Is this a current diagnosis for this admission?: Yes (2) Pancreatic fluid leak Is this a current diagnosis for this admission?: Yes Plan: Postoperative pancreatic leak most likely. Will check fluid for amylase. Will check laboratory studies including hematocrit to rule out a postoperative bleed although his drain output is non-bloody. Will make the patient n.p.o. IV fluids. Patient already on octreotide. Patient feeling much better after suctioning the fluid out. Will discuss with nursing staff to keep the JF drain bulb recurrently emptied and squeezed for suction for now.
[2018-09-17] MEDS ORDERED: NORMAL SALINE 1000 ML 1,000 ML IV PRN (15:10)
[2018-09-17 15:58] LABS: HEMATOCRIT 38.1 % (37.9-51.0); HEMOGLOBIN 12.9 g/dL (13.5-17.0); MEAN CORPUSCULAR HEMOGLOBIN 31.1 pg (27.0-33.4); MEAN CORPUSCULAR HGB CONC 33.9 g/dL (32.0-36.0); MEAN CORPUSCULAR VOLUME 92 fl (80-97); PLATELET COUNT 521 10^3/uL (150-450); RED BLOOD COUNT 4.16 10^6/uL (4.35-5.55); RED CELL DISTRIBUTION WIDTH 12.9 % (11.5-14.0); WHITE BLOOD COUNT 21.5 10^3/uL (4.0-10.5)
[2018-09-17 16:16] LABS: BLOOD UREA NITROGEN 19 mg/dL (7-20); CALCIUM 8.1 mg/dL (8.4-10.2); GLUCOSE 315 mg/dL (75-110)
[2018-09-17 16:17] LABS: ALANINE AMINOTRANSFERASE 19 U/L (21-72); ALBUMIN 2.7 g/dL (3.5-5.0); ALKALINE PHOSPHATASE 81 U/L (38-126); AMYLASE 35 U/L (30-110); ANION GAP 9 (5-19); ASPARTATE AMINO TRANSFERASE 14 U/L (17-59); BILIRUBIN,DIRECT 0.2 mg/dL (0.0-0.4); BILIRUBIN,TOTAL 0.5 mg/dL (0.2-1.3); CARBON DIOXIDE 26 mmol/L (22-30); CHLORIDE 112 mmol/L (98-107); LIPASE 76.1 U/L (23-300); POTASSIUM 3.4 mmol/L (3.6-5.0); SODIUM 147.4 mmol/L (137-145); TOTAL PROTEIN 4.9 g/dL (6.3-8.2)
[2018-09-18] MEDS: CEFAZOLIN 1 GM/D5W RTU 1 GM/50 ML RTUPB IV SCH ×3 (01:20→18:00)
[2018-09-18] MEDS: METRONIDAZOLE 500 MG/NS RTU 500 MG/100 ML RTUPB IV SCH ×3 (06:02→21:17)
[2018-09-18] MEDS: OCTREOTIDE ACETATE INJ/PF 100 MCG/1 ML SDV IV SCH ×3 (06:02→21:23)
[2018-09-18 06:31] LABS: HEMATOCRIT 38.9 % (37.9-51.0); HEMOGLOBIN 12.8 g/dL (13.5-17.0); MEAN CORPUSCULAR HEMOGLOBIN 30.6 pg (27.0-33.4); MEAN CORPUSCULAR HGB CONC 32.9 g/dL (32.0-36.0); MEAN CORPUSCULAR VOLUME 93 fl (80-97); PLATELET COUNT 502 10^3/uL (150-450); RED BLOOD COUNT 4.19 10^6/uL (4.35-5.55); RED CELL DISTRIBUTION WIDTH 12.6 % (11.5-14.0); WHITE BLOOD COUNT 29.2 10^3/uL (4.0-10.5)
[2018-09-18 06:46] LABS: ALANINE AMINOTRANSFERASE 20 U/L (21-72); ALBUMIN 2.5 g/dL (3.5-5.0); ALKALINE PHOSPHATASE 76 U/L (38-126); ANION GAP 9 (5-19); ASPARTATE AMINO TRANSFERASE 13 U/L (17-59); BILIRUBIN,DIRECT 0.4 mg/dL (0.0-0.4); BILIRUBIN,TOTAL 0.7 mg/dL (0.2-1.3); BLOOD UREA NITROGEN 20 mg/dL (7-20); CARBON DIOXIDE 28 mmol/L (22-30); CHLORIDE 114 mmol/L (98-107); GLUCOSE 324 mg/dL (75-110); POTASSIUM 3.7 mmol/L (3.6-5.0); SODIUM 150.8 mmol/L (137-145); TOTAL PROTEIN 4.7 g/dL (6.3-8.2)
[2018-09-18] MEDS ORDERED: BISACODYL 10 MG SUPP.RECT PR ONE (08:00)
--- NOTE | 2018-09-18 08:01 | PDOC PROGRESS REPORT ---
Subjective Progress Note for:: 09/18/18 Reason For Visit: R19.02 LEFT UPPER QUADRANT ABDOMINAL SWELLING, MAS pod 6 from distal pancreatectomy/splenectomy Physical Exam Vital Signs: Temp Pulse Resp BP Pulse Ox 98.7 F 114 H 19 110/66 90 L 09/18/18 00:00 09/18/18 00:00 09/18/18 00:00 09/18/18 00:00 09/18/18 00:00 Intake & Output 09/17/18 09/18/18 09/19/18 06:59 06:59 06:59 Intake Total 842 987 100 Output Total 820 1115 Balance 22 -128 100 Weight 98 kg 98.2 kg General appearance: PRESENT: no acute distress GI/Abdominal exam: PRESENT: soft - still with rik drainage, slowing after sandostatin started yesterday. Results Laboratory Results: 09/18/18 06:22 09/18/18 06:22 09/17/18 09/17/18 09/17/18 09:43 09:43 15:35 WBC 24.6 H 21.5 H RBC 3.99 L 4.16 L Hgb 12.6 L 12.9 L Hct 36.4 L 38.1 MCV 91 92 MCH 31.4 31.1 MCHC 34.5 33.9 RDW 12.9 12.9 Plt Count 542 H 521 H Seg Neutrophils % Not Reportable Lymphocytes % Not Reportable Monocytes % Not Reportable Eosinophils % Not Reportable Basophils % Not Reportable Absolute Neutrophils Not Reportable Absolute Lymphocytes Not Reportable Absolute Monocytes Not Reportable Absolute Eosinophils Not Reportable Absolute Basophils Not Reportable Sodium 151.2 H Potassium 3.7 Chloride 112 H Carbon Dioxide 23 Anion Gap 16 BUN 19 Creatinine 0.75 Est GFR ( Amer) > 60 Est GFR (Non-Af Amer) > 60 Glucose 300 H Calcium 8.9 Total Bilirubin AST ALT Alkaline Phosphatase Total Protein Albumin Amylase Lipase 09/17/18 09/18/18 09/18/18 15:35 06:22 06:22 WBC 29.2 H RBC 4.19 L Hgb 12.8 L Hct 38.9 MCV 93 MCH 30.6 MCHC 32.9 RDW 12.6 Plt Count 502 H Seg Neutrophils % Lymphocytes % Monocytes % Eosinophils % Basophils % Absolute Neutrophils Absolute Lymphocytes Absolute Monocytes Absolute Eosinophils Absolute Basophils Sodium 147.4 H 150.8 H Potassium 3.4 L 3.7 Chloride 112 H 114 H Carbon Dioxide 26 28 Anion Gap 9 9 BUN 19 20 Creatinine 0.74 0.92 Est GFR ( Amer) > 60 > 60 Est GFR (Non-Af Amer) > 60 > 60 Glucose 315 H 324 H Calcium 8.1 L 8.0 L Total Bilirubin 0.5 0.7 AST 14 L 13 L ALT 19 L 20 L Alkaline Phosphatase 81 76 Total Protein 4.9 L 4.7 L Albumin 2.7 L 2.5 L Amylase 35 Lipase 76.1 Impressions: Chest X-Ray 09/09/18 11:35 IMPRESSION: NO SIGNIFICANT RADIOGRAPHIC FINDING IN THE CHEST. KUB X-Ray 09/13/18 12:37 IMPRESSION: Nasogastric tube tip and side port in the stomach. Left upper quadrant Tian-Bell drain. 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
[2018-09-18] MEDS: HEPARIN SOD (PORCINE) 5,000 UNIT/ML 1 ML SYRINGE SUBCUT SCH ×2 (09:20→21:17)
[2018-09-18 10:21] LABS: HEMATOCRIT 39.7 % (37.9-51.0); HEMOGLOBIN 13.1 g/dL (13.5-17.0); MEAN CORPUSCULAR HEMOGLOBIN 30.7 pg (27.0-33.4); MEAN CORPUSCULAR HGB CONC 32.9 g/dL (32.0-36.0); MEAN CORPUSCULAR VOLUME 93 fl (80-97); PLATELET COUNT 465 10^3/uL (150-450); RED BLOOD COUNT 4.25 10^6/uL (4.35-5.55)
[2018-09-18 10:42] LABS: BLOOD UREA NITROGEN 22 mg/dL (7-20); CARBON DIOXIDE 24 mmol/L (22-30); GLUCOSE 351 mg/dL (75-110); POTASSIUM 3.8 mmol/L (3.6-5.0); SODIUM 152.1 mmol/L (137-145)
[2018-09-18 10:44] LABS: ANION GAP 16 (5-19); CHLORIDE 112 mmol/L (98-107)
[2018-09-18 10:56] LABS: WHITE BLOOD COUNT 31.2 10^3/uL (4.0-10.5)
[2018-09-18 11:03] LABS: ABSOLUTE LYMPHOCYTES# (MANUAL) 0.6 10^3/uL (0.5-4.7); ABSOLUTE MONOCYTES # (MANUAL) 1.2 10^3/uL (0.1-1.4); ABSOLUTE NEUTROPHILS# (MANUAL) 29.3 10^3/uL (1.7-8.2); BAND NEUTROPHILS % (MANUAL) 1 % (3-5); BASOPHILS % (MANUAL) 0 % (0-2); EOSINOPHILS % (MANUAL) 0 % (0-6); HYPOCHROMASIA SLIGHT; LYMPHOCYTES % (MANUAL) 2 % (13-45); MONOCYTES % (MANUAL) 4 % (3-13); PLATELET CLUMPS PRESENT; POLYCHROMASIA SLIGHT; SEGMENTED NEUTROPHILS % (MAN) 93 % (42-78); TOTAL CELLS COUNTED 100; TOXIC GRANULATION 1+
--- NOTE | 2018-09-18 11:57 | RADIOLOGY REPORT (SQ) ---
EXAM DESCRIPTION: CT ABD/PELVIS ORAL ONLY COMPLETED DATE/TIME: 09/18/2018 10:49 am REASON FOR STUDY: r/o absces, please do with oral gastrografin. R19.02 LEFT UPPER QUADRANT ABDOMINA L SWELLING, MASS AND LUMP COMPARISON: KUB 09/13/2018 MRI ABDOMEN 08/10 CT ABDOMEN PELVIS 08/20/201812/2017 TECHNIQUE: CT scan of the abdomen and pelvis performed without intravenous or oral contrast. Images reviewed with lung, soft tissue, and bone windows. Reconstructed coronal and sagittal MPR images revi ewed. All images stored on PACS. All CT scanners at this facility use dose modulation, iterative reconstruction, and/or weight based d osing when appropriate to reduce radiation dose to as low as reasonably achievable (ALARA). [facility]: Dose Right [facility]: CareDose [facility]: Dose Right [facility]: Teradose 4D [facility]: [employer] RADIATION DOSE: CT Rad equipment meets quality standard of care and radiation dose reduction techniq ues were employed. CTDIvol: 13.1 mGy. DLP: 759 mGy-cm.mGy. LIMITATIONS: None. 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 Mass was also adherent to the stomach fundus. Patient drank Omnipaque [address] exam is In the left upper quadrant, there is extravasation of oral contrast from the stomach fundus into a 5 by 3.5 cm pocket in the far left upper quadrant subphrenic space along the Tian-Bell drain. There is a 2nd pocket of accumulated extravasated oral contrast in the left upper quadrant along the Tian-Bell drain adjacent to the junction of the drainage portion of the catheter and catheter tub ing. This pocket measures about 8.5 by 5 cm in size. There is a small amount of right and left pericolic gutter free fluid, right subphrenic fluid, and pe lvic cul-de-sac free fluid with Hounsfield units 15 or less. A small amount of free intraperitoneal air is present. These findings were discussed with Dr. Angel, 1130 hours 09/18/2018. LOWER CHEST: A small to moderate left pleural effusion is present with left the catheter atelectasis. Since the prior CT 08/20/2018, patient has developed an enlarged left para cardiophrenic lymph node , 3 by 3 cm on axial image 15. NON-CONTRASTED LIVER, SPLEEN, ADRENALS: Liver and adrenal glands are unremarkable. Post splenectomy with left upper quadrant postsurgical changes as above. PANCREAS: Distal pancreatectomy. Pancreatic head and midbody are unremarkable. Adjacent enlarged ly mph nodes are present between the pancreatic body and SMA/SMV, the largest is 2.6 by 2 cm in size on axial image 26. GALLBLADDER: No identified stones by CT criteria. No inflammatory changes to suggest cholecystitis. RIGHT KIDNEY AND URETER: No suspicious masses. Assessment limited by lack of IV contrast. No signif icant calcifications. No hydronephrosis or hydroureter. LEFT KIDNEY AND URETER: No suspicious masses. Assessment limited by lack of IV contrast. No signifi cant calcifications. No hydronephrosis or hydroureter. AORTA AND RETROPERITONEUM: No abdominal aortic aneurysm. Retroperitoneal adenopathy is present as fo llows: 1.5 x 1.2 cm lymph node axial image 24, celiac region 2.6 x 2 cm lymph node between the pancreatic body and SMA/SMV axial image 26 2.8 x 1.3 cm node between the aorta and left adrenal gland on axial image 27 2.4 x 2 cm node in the left retroperitoneum at the level of the left renal vein. BOWEL AND PERITONEAL CAVITY: Free intraperitoneal air. Left upper quadrant extravasation of oral Omn ipaque from the stomach fundus as above. Left upper quadrant Tian-Bell drain. APPENDIX: Normal. PELVIS, BLADDER, AND ABDOMINAL WALL:Small amount of free cul-de-sac pelvic fluid. Bladder unremarkab le. Midline anterior abdominal wall surgical jose. BONES: Diffuse degenerative disc changes and facet arthropathy in the spine OTHER: No other significant finding. IMPRESSION: Leakage of oral Omnipaque contrast from the stomach fundus, with left upper quadrant pos tsurgical changes as above. COMMENT: Pertinent findings on the imaging study reported as a CRITICAL RESULT to DANIELA ALBA at11:30 on 09/18/2018. Category of Critical Result: GASTRIC FUNDAL PERFORATION WITH EXTRAVASATION OF ORAL CONTRAST INTO THE LEFT UPPER QUADRANT. FREE INTRAPERITONEAL AIR. Quality ID # [id number]: Final reports with documentation of one or more dose reduction techniques (e.g., Au tomated exposure control, adjustment of the mA and/or kV according to patient size, use of iterative reconstruction technique) TECHNICAL DOCUMENTATION: JOB ID: [id number] [employer]- All Rights Reserved Reading location - IP/workstation name: [email or web address]
[2018-09-18] MEDS: INSULIN LISPRO 100 UNIT/ML 3 ML VIAL SUBCUT PRN ×2 (12:29→22:04)
[2018-09-18] MEDS ORDERED: BISACODYL 10 MG SUPP.RECT PR PRN (13:06)
[2018-09-18] MEDS: 1/2 NORMAL SALINE 1,000 ML IV PRN (18:00)
[2018-09-19] MEDS: CEFAZOLIN 1 GM/D5W RTU 1 GM/50 ML RTUPB IV SCH ×3 (02:34→17:26)
[2018-09-19] MEDS: OCTREOTIDE ACETATE INJ/PF 100 MCG/1 ML SDV IV SCH ×3 (05:14→21:41)
[2018-09-19] MEDS: METRONIDAZOLE 500 MG/NS RTU 500 MG/100 ML RTUPB IV SCH ×2 (05:14→14:00)
[2018-09-19] MEDS: 1/2 NORMAL SALINE 1,000 ML IV PRN (06:56)
[2018-09-19] MEDS ORDERED: DEXTROSE 40% GEL 15 GM TUBE PO PRN ×2 (07:33)
[2018-09-19] MEDS ORDERED: DEXTROSE 50%-WATER 25 GM/50 ML DISP.SYRIN IV PRN ×2 (07:33)
[2018-09-19] MEDS ORDERED: GLUCAGON,HUMAN RECOMB 1 MG INJ IM PRN (07:33)
[2018-09-19] MEDS: INSULIN LISPRO 100 UNIT/ML 3 ML VIAL SUBCUT PRN ×3 (08:46→21:42)
--- NOTE | 2018-09-19 08:59 | PDOC PROGRESS REPORT ---
Subjective Progress Note for:: 09/19/18 Subjective:: pt feels better this am no flatus or stool wants to eat rik output less Reason For Visit: R19.02 LEFT UPPER QUADRANT ABDOMINAL SWELLING, MAS pod 7 s/p distal pancreatectomy/splenectomy Physical Exam Vital Signs: Temp Pulse Resp BP Pulse Ox 98.1 F 99 19 101/57 L 91 L 09/18/18 19:48 09/18/18 19:48 09/18/18 19:48 09/18/18 19:48 09/18/18 19:48 Intake & Output 09/18/18 09/19/18 09/20/18 06:59 06:59 06:59 Intake Total 1987 1550 Output Total 1115 2990 Balance 872 -1440 Weight 98.2 kg 98.3 kg GI/Abdominal exam: PRESENT: hypoactive bowel sounds, soft, other - abd soft, min luq tenderness to palpation rik with apparent gastric drainage, decreased Results Laboratory Results: 09/18/18 09:36 09/18/18 09:36 09/18/18 09/18/18 09:36 09:36 WBC 31.2 H* RBC 4.25 L Hgb 13.1 L Hct 39.7 MCV 93 MCH 30.7 MCHC 32.9 RDW 13.0 Plt Count 465 H Seg Neutrophils % Not Reportable Lymphocytes % Not Reportable Monocytes % Not Reportable Eosinophils % Not Reportable Basophils % Not Reportable Absolute Neutrophils Not Reportable Absolute Lymphocytes Not Reportable Absolute Monocytes Not Reportable Absolute Eosinophils Not Reportable Absolute Basophils Not Reportable Sodium 152.1 H Potassium 3.8 Chloride 112 H Carbon Dioxide 24 Anion Gap 16 BUN 22 H Creatinine 0.94 Est GFR ( Amer) > 60 Est GFR (Non-Af Amer) > 60 Glucose 351 H Calcium 8.0 L Impressions: Chest X-Ray 09/09/18 11:35 IMPRESSION: NO SIGNIFICANT RADIOGRAPHIC FINDING IN THE CHEST. KUB X-Ray 09/13/18 12:37 IMPRESSION: Nasogastric tube tip and side port in the stomach. Left upper quadrant Tian-Bell drain. Grossly nonobstructive bowel gas pattern Abdomen/Pelvis CT 09/18/18 00:00 IMPRESSION: Leakage of oral Omnipaque contrast from the stomach fundus, with left upper quadrant postsurgical changes as above. Assessment & Plan - Plan Summary Plan Summary: s/p distal pancreatectomy, pod 7 ct from yesterday suggest small extravasation of gastic contrast, well captured by rik drain no free fluid no pelvic fluid will cont non op management started sandostatin will ok small sips of fluid for pt comfort and monitor drain op labs today pending.
[2018-09-19] MEDS: HEPARIN SOD (PORCINE) 5,000 UNIT/ML 1 ML SYRINGE SUBCUT SCH ×2 (09:04→21:43)
[2018-09-19 10:31] LABS: HEMATOCRIT 37.1 % (37.9-51.0); HEMOGLOBIN 11.8 g/dL (13.5-17.0); MEAN CORPUSCULAR HEMOGLOBIN 30.2 pg (27.0-33.4); MEAN CORPUSCULAR HGB CONC 31.9 g/dL (32.0-36.0); MEAN CORPUSCULAR VOLUME 95 fl (80-97); PLATELET COUNT 464 10^3/uL (150-450); RED BLOOD COUNT 3.91 10^6/uL (4.35-5.55); RED CELL DISTRIBUTION WIDTH 13.3 % (11.5-14.0); WHITE BLOOD COUNT 26.8 10^3/uL (4.0-10.5)
[2018-09-19 10:49] LABS: ANION GAP 13 (5-19); BLOOD UREA NITROGEN 32 mg/dL (7-20); CALCIUM 8.3 mg/dL (8.4-10.2); CARBON DIOXIDE 26 mmol/L (22-30); CHLORIDE 111 mmol/L (98-107); GLUCOSE 388 mg/dL (75-110); POTASSIUM 3.6 mmol/L (3.6-5.0); SODIUM 150.2 mmol/L (137-145)
[2018-09-19 11:22] LABS: PATH REVIEW PATHOLOGIST REVIEWED
[2018-09-19 11:26] LABS: ABSOLUTE LYMPHOCYTES# (MANUAL) 0.3 10^3/uL (0.5-4.7); ABSOLUTE MONOCYTES # (MANUAL) 1.1 10^3/uL (0.1-1.4); ABSOLUTE NEUTROPHILS# (MANUAL) 25.5 10^3/uL (1.7-8.2); BASOPHILS % (MANUAL) 0 % (0-2); EOSINOPHILS % (MANUAL) 0 % (0-6); LYMPHOCYTES % (MANUAL) 1 % (13-45); MONOCYTES % (MANUAL) 4 % (3-13); NUCLEATED RED BLOOD CELLS 2 /100 WBC (0); SEGMENTED NEUTROPHILS % (MAN) 95 % (42-78); TOTAL CELLS COUNTED 100
[2018-09-19 11:30] LABS: PLATELET COMMENT ADEQUATE; POLYCHROMASIA SLIGHT; TOXIC GRANULATION 1+; TOXIC VACUOLATION PRESENT
[2018-09-20] MEDS ORDERED: OCTREOTIDE ACETATE INJ/PF 100 MCG/1 ML SDV ONE (06:12)
[2018-09-20] MEDS: OCTREOTIDE ACETATE INJ/PF 100 MCG/1 ML SDV IV SCH ×3 (06:18→21:59)
[2018-09-20] MEDS: INSULIN LISPRO 100 UNIT/ML 3 ML VIAL SUBCUT PRN ×2 (08:41→12:19)
[2018-09-20] MEDS: HEPARIN SOD (PORCINE) 5,000 UNIT/ML 1 ML SYRINGE SUBCUT SCH ×2 (09:17→21:59)
[2018-09-20] MEDS ORDERED: BISACODYL 10 MG SUPP.RECT PR ONE (10:15)
[2018-09-20 10:28] LABS: HEMATOCRIT 33.6 % (37.9-51.0); HEMOGLOBIN 11.1 g/dL (13.5-17.0); MEAN CORPUSCULAR HEMOGLOBIN 30.6 pg (27.0-33.4); MEAN CORPUSCULAR VOLUME 93 fl (80-97); PLATELET COUNT 423 10^3/uL (150-450); RED BLOOD COUNT 3.63 10^6/uL (4.35-5.55); WHITE BLOOD COUNT 22.1 10^3/uL (4.0-10.5)
[2018-09-20 10:52] LABS: ABSOLUTE LYMPHOCYTES# (MANUAL) 0.9 10^3/uL (0.5-4.7); ABSOLUTE MONOCYTES # (MANUAL) 0.2 10^3/uL (0.1-1.4); ABSOLUTE NEUTROPHILS# (MANUAL) 20.6 10^3/uL (1.7-8.2); BAND NEUTROPHILS % (MANUAL) 3 % (3-5); BASOPHILS % (MANUAL) 0 % (0-2); EOSINOPHILS % (MANUAL) 2 % (0-6); LYMPHOCYTES % (MANUAL) 4 % (13-45); MONOCYTES % (MANUAL) 1 % (3-13); SEGMENTED NEUTROPHILS % (MAN) 90 % (42-78); TOTAL CELLS COUNTED 100
[2018-09-20 11:00] LABS: HOWELL-JOLLY BODIES PRESENT
[2018-09-20 11:03] LABS: POLYCHROMASIA SLIGHT
[2018-09-20 11:27] LABS: ANION GAP 13 (5-19); BLOOD UREA NITROGEN 24 mg/dL (7-20); CALCIUM 7.6 mg/dL (8.4-10.2); CARBON DIOXIDE 23 mmol/L (22-30); CHLORIDE 101 mmol/L (98-107); GLUCOSE 308 mg/dL (75-110); POTASSIUM 3.3 mmol/L (3.6-5.0); SODIUM 137.3 mmol/L (137-145)
[2018-09-20 11:29] LABS: PLATELET COMMENT ADEQUATE
[2018-09-20] MEDS ORDERED: NORMAL SALINE 500 ML IV ONE (12:15)
[2018-09-20] MEDS: 1/2 NORMAL SALINE 1,000 ML IV PRN (12:24)
[2018-09-20] MEDS ORDERED: ALBUMIN HUMAN 12.5 GM/50 ML RTUINJ IV SCH (18:00)
[2018-09-20] MEDS ORDERED: ALBUMIN HUMAN 12.5 GM/50 ML RTUINJ IV ONE (19:00)
--- NOTE | 2018-09-20 19:19 | RADIOLOGY REPORT (SQ) ---
EXAM DESCRIPTION: UGI SERIES COMPLETED DATE/TIME: 09/20/2018 6:55 pm REASON FOR STUDY: r/o gastric leak R19.02 LEFT UPPER QUADRANT ABDOMINAL SWELLING, MASS AND LUMP COMPARISON: CT of the abdomen with oral contrast and dated 09/18/2018 which shows itching of oral on t he PAC from the stomach fundus into the left upper quadrant. TECHNIQUE: Under fluoroscopic guidance, patient ingested Gastrografin. Fluoroscopic spot images and routine radiographic images acquired and stored on PACS. 12 MM BARIUM TABLET GIVEN: No. LIMITATIONS: Patient was only able to ingest a 60 mL of Gastrografin. Patient did not ingest enough oral contrast Gastric fundus. Refused to drink any more contrast. Patient refused repositioned into the AP, left lateral, right oblique and left oblique position. FLUOROSCOPY TIME: FLUORO TIME: 45 seconds 7 images saved to PACS. FINDINGS: NEUROMUSCULAR COORDINATION OF SWALLOW: Normal. No aspiration. ESOPHAGEAL MOTILITY: Normal peristalsis. No esophageal spasm. ESOPHAGEAL MUCOSA: Normal mucosa without masses or ulceration. GASTRO-ESOPHAGEAL JUNCTION: Nondiagnostic. STOMACH: Insufficient amount of oral contrast in order to see gastric fundus. Nondiagnostic. GASTRIC OUTLET: Not visual. DUODENAL BULB: Not visualize. DUODENUM: Not visualized. PROXIMAL JEJUNUM: Not visualized. NON-GI TRACT STRUCTURES: No significant finding. OTHER: Surgical clips noted. IMPRESSION: Nondiagnostic upper GI series due to limitations as noted above. Patient was unable to ingest enough oral contrast to visualize gastric fundus and assess for extravasation. Patient reques ant to have study discontinued due to discomfort. Unable to obtain AP, right oblique, left oblique a nd right lateral views of the stomach as patient refused to change positions. As noted CT of the abd omen shows leakage of oral Omnipaque contrast. COMMENT: Quality ID 145: Final reports for procedures using fluoroscopy that document radiation exp osure indices, or exposure time and number of fluorographic images (if radiation exposure indices are not available) TECHNICAL DOCUMENTATION: JOB ID: [id number] [employer]- All Rights Reserved Reading location - IP/workstation name: [email or web address]
[2018-09-20] MEDS: ALBUMIN HUMAN 12.5 GM/50 ML RTUINJ IV SCH (20:25)
--- NOTE | 2018-09-20 21:21 | PDOC PROGRESS REPORT ---
Subjective Progress Note for:: 09/20/18 Subjective:: pt feels better this am no flatus or stool wants to eat rik output less Reason For Visit: R19.02 LEFT UPPER QUADRANT ABDOMINAL SWELLING, MAS post op distal pancreatectomy Physical Exam Vital Signs: Temp Pulse Resp BP Pulse Ox 98.1 F 71 16 102/60 92 09/20/18 15:58 09/20/18 15:58 09/20/18 15:58 09/20/18 15:58 09/20/18 15:58 Intake & Output 09/19/18 09/20/18 09/21/18 06:59 06:59 06:59 Intake Total 1550 2380 830 Output Total 2990 560 390 Balance -1440 1820 440 Weight 98.3 kg 100.3 kg General appearance: PRESENT: no acute distress GI/Abdominal exam: PRESENT: soft - rik still with clear drainage suspect gastric leak ugi was done, did not show a leak as the ct infered however pt did not draink much contrast will cont only clears. Results Laboratory Results: 09/20/18 10:11 09/20/18 10:11 09/20/18 09/20/18 10:11 10:11 WBC 22.1 H RBC 3.63 L Hgb 11.1 L Hct 33.6 L MCV 93 MCH 30.6 MCHC 33.0 RDW 13.0 Plt Count 423 Seg Neutrophils % Not Reportable Lymphocytes % Not Reportable Monocytes % Not Reportable Eosinophils % Not Reportable Basophils % Not Reportable Absolute Neutrophils Not Reportable Absolute Lymphocytes Not Reportable Absolute Monocytes Not Reportable Absolute Eosinophils Not Reportable Absolute Basophils Not Reportable Sodium 137.3 Potassium 3.3 L Chloride 101 Carbon Dioxide 23 Anion Gap 13 BUN 24 H Creatinine 0.91 Est GFR ( Amer) > 60 Est GFR (Non-Af Amer) > 60 Glucose 308 H Calcium 7.6 L Impressions: Chest X-Ray 09/09/18 11:35 IMPRESSION: NO SIGNIFICANT RADIOGRAPHIC FINDING IN THE CHEST. KUB X-Ray 09/13/18 12:37 IMPRESSION: Nasogastric tube tip and side port in the stomach. Left upper quadrant Tian-Bell drain. Grossly nonobstructive bowel gas pattern Abdomen/Pelvis CT 09/18/18 00:00 IMPRESSION: Leakage of oral Omnipaque contrast from the stomach fundus, with left upper quadrant postsurgical changes as above. Upper GI Series 09/20/18 00:00 IMPRESSION: Nondiagnostic upper GI series due to limitations as noted above. Patient was unable to ingest enough oral contrast to visualize gastric fundus and assess for extravasation. Patient requested to have study discontinued due to discomfort. Unable to obtain AP, right oblique, left oblique and right lateral views of the stomach as patient refused to change positions. As noted CT of the abdomen shows leakage of oral Omnipaque contrast. Assessment & Plan - Plan Summary Plan Summary: pt doing better wbc decreasing wants to eat however still concerned about a gastric leak as stated, he did not drink enough contrast to identify a leak will cont with clears for now
[2018-09-21] MEDS ORDERED: 1/2 NORMAL SALINE 1,000 ML IV ONE (01:00)
[2018-09-21] MEDS: OCTREOTIDE ACETATE INJ/PF 100 MCG/1 ML SDV IV SCH ×3 (05:31→22:41)
--- NOTE | 2018-09-21 08:42 | PDOC PROGRESS REPORT ---
Subjective Progress Note for:: 09/21/18 Reason For Visit: R19.02 LEFT UPPER QUADRANT ABDOMINAL SWELLING, MAS post op distal pancreatectomy/splenectomy Physical Exam Vital Signs: Temp Pulse Resp BP Pulse Ox 97.5 F 78 22 H 99/53 L 100 09/21/18 07:31 09/21/18 07:31 09/21/18 07:31 09/21/18 07:31 09/21/18 07:31 Intake & Output 09/20/18 09/21/18 09/22/18 06:59 06:59 06:59 Intake Total 2380 3610 Output Total 560 1730 Balance 1820 1880 Weight 100.3 kg 103.7 kg General appearance: PRESENT: no acute distress, cooperative GI/Abdominal exam: PRESENT: soft - soft non tender rik drain serous no evidence of po liquids exiting drain pt taking green jello and cranberry juice Results Laboratory Results: 09/20/18 10:11 09/20/18 10:11 09/20/18 09/20/18 10:11 10:11 WBC 22.1 H RBC 3.63 L Hgb 11.1 L Hct 33.6 L MCV 93 MCH 30.6 MCHC 33.0 RDW 13.0 Plt Count 423 Seg Neutrophils % Not Reportable Lymphocytes % Not Reportable Monocytes % Not Reportable Eosinophils % Not Reportable Basophils % Not Reportable Absolute Neutrophils Not Reportable Absolute Lymphocytes Not Reportable Absolute Monocytes Not Reportable Absolute Eosinophils Not Reportable Absolute Basophils Not Reportable Sodium 137.3 Potassium 3.3 L Chloride 101 Carbon Dioxide 23 Anion Gap 13 BUN 24 H Creatinine 0.91 Est GFR ( Amer) > 60 Est GFR (Non-Af Amer) > 60 Glucose 308 H Calcium 7.6 L Impressions: Chest X-Ray 09/09/18 11:35 IMPRESSION: NO SIGNIFICANT RADIOGRAPHIC FINDING IN THE CHEST. KUB X-Ray 09/13/18 12:37 IMPRESSION: Nasogastric tube tip and side port in the stomach. Left upper quadrant Tian-Bell drain. Grossly nonobstructive bowel gas pattern Abdomen/Pelvis CT 09/18/18 00:00 IMPRESSION: Leakage of oral Omnipaque contrast from the stomach fundus, with left upper quadrant postsurgical changes as above. Upper GI Series 09/20/18 00:00 IMPRESSION: Nondiagnostic upper GI series due to limitations as noted above. Patient was unable to ingest enough oral contrast to visualize gastric fundus and assess for extravasation. Patient requested to have study discontinued due to discomfort. Unable to obtain AP, right oblique, left oblique and right lateral views of the stomach as patient refused to change positions. As noted CT of the abdomen shows leakage of oral Omnipaque contrast. Assessment & Plan - Plan Summary Plan Summary: pt had ugi yesterday did not take enough po contrast to really delineate a leak since then pt had been passing bilious stool no evidence of food or po liquids exiting the rik drain he is eating green and red jello wants to try po full liquids At this point if there is a gastric leak it is fistulized, and is well captured by drain will allow po full liquids and monitor drain op
[2018-09-21 09:36] LABS: HEMATOCRIT 32.6 % (37.9-51.0); HEMOGLOBIN 10.7 g/dL (13.5-17.0); MEAN CORPUSCULAR HEMOGLOBIN 30.3 pg (27.0-33.4); MEAN CORPUSCULAR HGB CONC 32.7 g/dL (32.0-36.0); MEAN CORPUSCULAR VOLUME 93 fl (80-97); PLATELET COUNT 411 10^3/uL (150-450); RED BLOOD COUNT 3.53 10^6/uL (4.35-5.55); RED CELL DISTRIBUTION WIDTH 13.1 % (11.5-14.0); WHITE BLOOD COUNT 21.2 10^3/uL (4.0-10.5)
[2018-09-21 09:57] LABS: ANION GAP 14 (5-19); BLOOD UREA NITROGEN 17 mg/dL (7-20); CALCIUM 7.4 mg/dL (8.4-10.2); CARBON DIOXIDE 22 mmol/L (22-30); CHLORIDE 99 mmol/L (98-107); GLUCOSE 339 mg/dL (75-110); POTASSIUM 3.5 mmol/L (3.6-5.0); SODIUM 134.8 mmol/L (137-145)
[2018-09-21 10:04] LABS: ABSOLUTE LYMPHOCYTES# (MANUAL) 1.1 10^3/uL (0.5-4.7); ABSOLUTE MONOCYTES # (MANUAL) 1.1 10^3/uL (0.1-1.4); ABSOLUTE NEUTROPHILS# (MANUAL) 18.7 10^3/uL (1.7-8.2); BAND NEUTROPHILS % (MANUAL) 1 % (3-5); BASOPHILS % (MANUAL) 0 % (0-2); EOSINOPHILS % (MANUAL) 2 % (0-6); LYMPHOCYTES % (MANUAL) 5 % (13-45); MONOCYTES % (MANUAL) 5 % (3-13); SEGMENTED NEUTROPHILS % (MAN) 87 % (42-78); TOTAL CELLS COUNTED 100
[2018-09-21 10:05] LABS: PLATELET COMMENT ADEQUATE; RBC MORPHOLOGY COMMENT NORMO-CYTIC/CHROMIC; TOXIC GRANULATION 1+; TOXIC VACUOLATION PRESENT
[2018-09-21] MEDS: HEPARIN SOD (PORCINE) 5,000 UNIT/ML 1 ML SYRINGE SUBCUT SCH ×2 (10:24→22:41)
[2018-09-21] MEDS: INSULIN LISPRO 100 UNIT/ML 3 ML VIAL SUBCUT PRN ×3 (12:30→22:42)
--- NOTE | 2018-09-21 15:25 | PDOC CONSULTATION ---
Consultation Consult Date: 09/21/18 Consult reason:: Hematology/Oncology consultation was requested for patient with pancreatic mass and elevated blood counts. History of Present Illness Admission Date/PCP: 09/12/18 11:57 MICHELLE ROSADO MD History of Present Illness: MARILUZ SANDOVAL SR is a 58 year old male who follows with Dr. Rosado. She presented with an acute onset severe pain across his abdomen. He was treated conservatively for diverticulitis and MRI was obtained. This showed a pancreatic mass and possible mass adjacent to the spleen as well. He was admitted and has undergone surgery for this. His course has been complicated by nausea, fatigue, and elevated WBC count. However, today, he states that he is feeling much better. He is now on a full liquid diet and is trying to walk outside the room. Past Medical History Cardiac Medical History: Reports: Hypertension Denies: Atrial Fibrillation, Congestive Heart Failure, Coronary Artery Disease, Myocardial Infarction, Hyperlipidema, Peripheral Vascular Disease, Heart Murmur Pulmonary Medical History: Denies: Asthma, Bronchitis, Chronic Obstructive Pulmonary Disease (COPD), Pneumonia Neurological Medical History: Denies: Seizures Endocrine Medical History: Reports: Diabetes Mellitus Type 2 Denies: Hyperthyroidism, Hypothyroidism Musculoskeltal Medical History: Denies: Arthritis Hematology: Denies: Anemia Past Surgical History Past Surgical History: wisdom teeth, tendon repair Left arm. 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 Lives with: Spouse/Significant other Smoking Status: Former Smoker Last Time Smoked: 30 years ago Frequency of Alcohol Use: None Past Social History Note: He has 4 children and 3 GKs. Family History Parental Family History Reviewed: Yes - Mom living age 78 with throat cancer. Dad 58 Sepsis Children Family History Reviewed: Yes Sibling(s) Family History Reviewed.: Yes - CAD Medication/Allergy Home Medications: Aspirin [Aspirin 81 mg Chewable Tablet] 81 mg PO DAILY 09/06/18 Hydrochlorothiazide [Hydrodiuril 25 mg Tablet] 25 mg PO DAILY 09/06/18 Metformin HCl 1,000 mg PO BID 09/06/18 Metoprolol Succinate [Toprol Xl] 50 mg PO BID 09/06/18 Allergies/Adverse Reactions: No Known Allergies Allergy (Verified 09/06/18 11:32) Review of Systems Constitutional: ABSENT: fever(s), headache(s) Eyes: ABSENT: visual disturbances Ears: ABSENT: hearing changes Nose, Mouth, and Throat: ABSENT: sore throat Cardiovascular: ABSENT: chest pain Respiratory: ABSENT: dyspnea Gastrointestinal: PRESENT: abdominal pain, nausea Genitourinary: ABSENT: dysuria Musculoskeletal: PRESENT: back pain Integumentary: ABSENT: rash Neurological: PRESENT: weakness Hematologic/Lymphatic: ABSENT: lymphadenopathy Physical Exam Vital Signs: Temp Pulse Resp BP Pulse Ox 97.5 F 58 L 22 H 99/53 L 99 09/21/18 08:00 09/21/18 08:00 09/21/18 08:00 09/21/18 08:00 09/21/18 08:00 Intake & Output 09/20/18 09/21/18 09/22/18 06:59 06:59 06:59 Intake Total 2380 3610 Output Total 560 1730 Balance 1820 1880 Weight 100.3 kg 103.7 kg General appearance: PRESENT: no acute distress, well-developed, well-nourished Exam: 58 year old male. is at bedside. Head exam: PRESENT: normocephalic Eye exam: PRESENT: EOMI Mouth exam: PRESENT: tongue midline Neck exam: ABSENT: lymphadenopathy, tenderness Respiratory exam: PRESENT: clear to auscultation merissa, unlabored Cardiovascular exam: PRESENT: RRR GI/Abdominal exam: PRESENT: soft, other - Drain and dressings in place.. ABSENT: tenderness Extremities exam: ABSENT: pedal edema Musculoskeletal exam: PRESENT: normal inspection Neurological exam: PRESENT: alert, awake, oriented to person, oriented to place, oriented to time, oriented to situation Psychiatric exam: PRESENT: appropriate affect Skin exam: PRESENT: normal color Results Laboratory Results: 09/21/18 09:06 09/21/18 09:06 09/21/18 09/21/18 09:06 09:06 WBC 21.2 H RBC 3.53 L Hgb 10.7 L Hct 32.6 L MCV 93 MCH 30.3 MCHC 32.7 RDW 13.1 Plt Count 411 Seg Neutrophils % Not Reportable Lymphocytes % Not Reportable Monocytes % Not Reportable Eosinophils % Not Reportable Basophils % Not Reportable Absolute Neutrophils Not Reportable Absolute Lymphocytes Not Reportable Absolute Monocytes Not Reportable Absolute Eosinophils Not Reportable Absolute Basophils Not Reportable Sodium 134.8 L Potassium 3.5 L Chloride 99 Carbon Dioxide 22 Anion Gap 14 BUN 17 Creatinine 0.93 Est GFR ( Amer) > 60 Est GFR (Non-Af Amer) > 60 Glucose 339 H Calcium 7.4 L Impressions: Chest X-Ray 09/09/18 11:35 IMPRESSION: NO SIGNIFICANT RADIOGRAPHIC FINDING IN THE CHEST. KUB X-Ray 09/13/18 12:37 IMPRESSION: Nasogastric tube tip and side port in the stomach. Left upper quadrant Tian-Bell drain. Grossly nonobstructive bowel gas pattern Abdomen/Pelvis CT 09/18/18 00:00 IMPRESSION: Leakage of oral Omnipaque contrast from the stomach fundus, with left upper quadrant postsurgical changes as above. Upper GI Series 09/20/18 00:00 IMPRESSION: Nondiagnostic upper GI series due to limitations as noted above. Patient was unable to ingest enough oral contrast to visualize gastric fundus and assess for extravasation. Patient requested to have study discontinued due to discomfort. Unable to obtain AP, right oblique, left oblique and right lateral views of the stomach as patient refused to change positions. As noted CT of the abdomen shows leakage of oral Omnipaque contrast. Status: Image reviewed by me Assessment & Plan - Diagnosis (1) Pancreatic mass Is this a current diagnosis for this admission?: Yes Plan: Now surgically resected. I reviewed the pathology report with the patient and a copy was given to him. There is no evidence of pancreatic cancer. There is an atypical lymphoid proliferation, but Flow Cytometry did NOT show evidence of Monoclonal population, lymphoma, of other malignancy. The case was sent to [facility] for further review and these results are pending. (2) Leukocytosis Is this a current diagnosis for this admission?: Yes Plan: Most likely reactive. I will follow this as outpatient. His elevated PLT count has not resolved. (3) Anemia Qualifiers: Anemia type: unspecified type Qualified Code(s): D64.9 - Anemia, unspecified Is this a current diagnosis for this admission?: Yes Plan: Unclear as to the cause at this point. No evidence of active bleeding. May be secondary to chronic inflammation. I will be happy to do a full anemia work-up as outpatient. No indication for transfusion at this point. - Plan Summary Plan Summary: I am happy to see him again about 2 weeks after discharge to discuss final pathology report. I will arrange. Please call me with any other concerns.
[2018-09-22 04:55] LABS: HEMOGLOBIN 11.5 g/dL (13.5-17.0); MEAN CORPUSCULAR HGB CONC 32.9 g/dL (32.0-36.0); MEAN CORPUSCULAR VOLUME 91 fl (80-97); PLATELET COUNT 451 10^3/uL (150-450); RED BLOOD COUNT 3.84 10^6/uL (4.35-5.55); WHITE BLOOD COUNT 25.7 10^3/uL (4.0-10.5)
[2018-09-22 05:08] LABS: ANION GAP 6 (5-19); BLOOD UREA NITROGEN 14 mg/dL (7-20); CALCIUM 7.6 mg/dL (8.4-10.2); CHLORIDE 98 mmol/L (98-107); GLUCOSE 191 mg/dL (75-110); POTASSIUM 3.2 mmol/L (3.6-5.0); SODIUM 137.4 mmol/L (137-145)
[2018-09-22 05:24] LABS: CARBON DIOXIDE 33 mmol/L (22-30)
[2018-09-22 05:33] LABS: ABSOLUTE LYMPHOCYTES# (MANUAL) 0.8 10^3/uL (0.5-4.7); ABSOLUTE MONOCYTES # (MANUAL) 1.3 10^3/uL (0.1-1.4); ABSOLUTE NEUTROPHILS# (MANUAL) 23.6 10^3/uL (1.7-8.2); BASOPHILS % (MANUAL) 0 % (0-2); EOSINOPHILS % (MANUAL) 0 % (0-6); LYMPHOCYTES % (MANUAL) 3 % (13-45); MONOCYTES % (MANUAL) 5 % (3-13); PLATELET COMMENT ADEQUATE; PLATELET LARGE PRESENT; POLYCHROMASIA SLIGHT; SCHISTOCYTES SLIGHT; SEGMENTED NEUTROPHILS % (MAN) 92 % (42-78); TOTAL CELLS COUNTED 100; TOXIC GRANULATION 1+
[2018-09-22] MEDS: OCTREOTIDE ACETATE INJ/PF 100 MCG/1 ML SDV IV SCH ×3 (06:56→21:30)
[2018-09-22] MEDS: HEPARIN SOD (PORCINE) 5,000 UNIT/ML 1 ML SYRINGE SUBCUT SCH ×2 (09:15→21:30)
--- NOTE | 2018-09-22 10:02 | PDOC PROGRESS REPORT ---
Subjective Progress Note for:: 09/22/18 Reason For Visit: R19.02 LEFT UPPER QUADRANT ABDOMINAL SWELLING, MAS post op f/u Physical Exam Vital Signs: Temp Pulse Resp BP Pulse Ox 97.9 F 86 16 102/62 97 09/22/18 07:41 09/22/18 07:41 09/22/18 07:41 09/22/18 07:41 09/22/18 07:41 Intake & Output 09/21/18 09/22/18 09/23/18 06:59 06:59 06:59 Intake Total 3610 1816 Output Total 1730 860 Balance 1880 956 Weight 103.7 kg 103.6 kg GI/Abdominal exam: PRESENT: other - abdomen soft non tender rik clear serous amylase level <3 pt has been eating pudding and [place] no evidence of those leaking via rik Results Laboratory Results: 09/22/18 04:25 09/22/18 04:25 09/21/18 09/21/18 09/22/18 09:06 09:06 04:25 WBC 21.2 H 25.7 H RBC 3.53 L 3.84 L Hgb 10.7 L 11.5 L Hct 32.6 L 35.0 L MCV 93 91 MCH 30.3 30.0 MCHC 32.7 32.9 RDW 13.1 13.0 Plt Count 411 451 H Seg Neutrophils % Not Reportable Lymphocytes % Not Reportable Monocytes % Not Reportable Eosinophils % Not Reportable Basophils % Not Reportable Absolute Neutrophils Not Reportable Absolute Lymphocytes Not Reportable Absolute Monocytes Not Reportable Absolute Eosinophils Not Reportable Absolute Basophils Not Reportable Sodium 134.8 L Potassium 3.5 L Chloride 99 Carbon Dioxide 22 Anion Gap 14 BUN 17 Creatinine 0.93 Est GFR ( Amer) > 60 Est GFR (Non-Af Amer) > 60 Glucose 339 H Calcium 7.4 L 09/22/18 04:25 WBC RBC Hgb Hct MCV MCH MCHC RDW Plt Count Seg Neutrophils % Lymphocytes % Monocytes % Eosinophils % Basophils % Absolute Neutrophils Absolute Lymphocytes Absolute Monocytes Absolute Eosinophils Absolute Basophils Sodium 137.4 Potassium 3.2 L Chloride 98 Carbon Dioxide 33 H D Anion Gap 6 BUN 14 Creatinine 0.85 Est GFR ( Amer) > 60 Est GFR (Non-Af Amer) > 60 Glucose 191 H Calcium 7.6 L Impressions: Chest X-Ray 09/09/18 11:35 IMPRESSION: NO SIGNIFICANT RADIOGRAPHIC FINDING IN THE CHEST. KUB X-Ray 09/13/18 12:37 IMPRESSION: Nasogastric tube tip and side port in the stomach. Left upper quadrant Tian-Bell drain. Grossly nonobstructive bowel gas pattern Abdomen/Pelvis CT 09/18/18 00:00 IMPRESSION: Leakage of oral Omnipaque contrast from the stomach fundus, with left upper quadrant postsurgical changes as above. Upper GI Series 09/20/18 00:00 IMPRESSION: Nondiagnostic upper GI series due to limitations as noted above. Patient was unable to ingest enough oral contrast to visualize gastric fundus and assess for extravasation. Patient requested to have study discontinued due to discomfort. Unable to obtain AP, right oblique, left oblique and right lateral views of the stomach as patient refused to change positions. As noted CT of the abdomen shows leakage of oral Omnipaque contrast. Assessment & Plan - Plan Summary Plan Summary: s/p distal pancreatectomy/splenectomy now bg full liquids without evidence of gastric leak pt running high glucose leukocytosis and thrombocytosis likely post splenectomy plan repeat ct abd today pt will need his vaccines prior to discharge diabetic teaching, he will be going home on sliding scale insulin will need glucometer upon discharge spoke with Dr Cota. Final path pending if lymphoma, will likely need chemo, and therefore will need a port placment. Will plan on that as outpatient.
--- NOTE | 2018-09-22 14:38 | RADIOLOGY REPORT (SQ) ---
EXAM DESCRIPTION: CT ABD/PELVIS ORAL ONLY COMPLETED DATE/TIME: 09/22/2018 1:45 pm REASON FOR STUDY: f/u splenectomy/pancreatectomy R19.02 LEFT UPPER QUADRANT ABDOMINAL SWELLING, MAS S AND LUMP COMPARISON: 09/18/2017 TECHNIQUE: CT scan of the abdomen and pelvis performed without oral contrast and scratched intraveno us contrast. Images reviewed with lung, soft tissue, and bone windows. Reconstructed coronal and sagi ttal MPR images reviewed. All images stored on PACS. All CT scanners at this facility use dose modulation, iterative reconstruction, and/or weight based d osing when appropriate to reduce radiation dose to as low as reasonably achievable (ALARA). [facility]: Dose Right [facility]: CareDose [facility]: Dose Right [facility]: Teradose 4D [facility]: SPO Medical RADIATION DOSE: CT Rad equipment meets quality standard of care and radiation dose reduction techniq ues were employed. CTDIvol: 18.9 mGy. DLP: 1120 mGy-cm.mGy. LIMITATIONS: None. FINDINGS: LOWER CHEST: Incompletely visualized moderate-sized left pleural effusion, increased from prior. Associated atelectasis. Trace right pleural effusion/atelectasis. NON-CONTRASTED LIVER, SPLEEN, ADRENALS: Evaluation limited by lack of IV contrast. No identified sign ificant masses. PANCREAS: Unchanged appearance of postsurgical changes from distal pancreatectomy. Unchanged positio tyrone of the left upper quadrant surgical drain. GALLBLADDER: No identified stones by CT criteria. No inflammatory changes to suggest cholecystitis. RIGHT KIDNEY AND URETER: No solid masses. No significant calcification. No hydronephrosis or hydroure ter. LEFT KIDNEY AND URETER: No solid masses. No significant calcification. No hydronephrosis or hydrouret er. AORTA AND RETROPERITONEUM: No aneurysm. Mild scattered calcified plaque. No retroperitoneal masses or adenopathy. BOWEL AND PERITONEAL CAVITY: Residual enteric contrast from prior CT. There is discontinuity of the posterior wall of the gastric fundus (series 2, images 15 and 16) with contrast extravasating from th e stomach into the left upper quadrant the abdomen. Amount of contrast within the left upper quadran t has increased from prior measuring 7.1 x 5.4 cm with an associated air-fluid level. The overall ca vity size including the air-fluid level measures 11.8 x 11.7 cm which has also increased from prior. Unchanged additional pocket of accumulated extravasated oral contrast within the anterior left upper quadrant of the abdomen measuring 7.7 x 3.5 cm (series 2, image 35). Decrease in the internal air-f luid level. No new fluid collections. Similar to minimally decreased free air within the abdomen. No dilated loops of bowel. Unchanged enlarged lymph nodes within the abdomen and pelvis. APPENDIX: Not visualized PELVIS, BLADDER, AND ABDOMINAL WALL: No abnormal pelvic masses. Midline cutaneous jose. Bladder unremarkable. BONES: No sinister bone lesion. OTHER: No other significant finding. IMPRESSION: 1. Increase in in the subphrenic, left upper quadrant extravasated fluid collection. 2. Similar additional left upper quadrant fluid collection, as above. 3. No additional interval changes. TECHNICAL DOCUMENTATION: JOB ID: [id number] Quality ID # [id number]: Final reports with documentation of one or more dose reduction techniques (e.g., Au tomated exposure control, adjustment of the mA and/or kV according to patient size, use of iterative reconstruction technique) 2010 [employer]- All Rights Reserved Reading location - IP/workstation name: [email or web address]
[2018-09-22] MEDS: INSULIN LISPRO 100 UNIT/ML 3 ML VIAL SUBCUT PRN ×2 (15:54→20:02)
[2018-09-22] MEDS ORDERED: INSULIN LISPRO 100 UNIT/ML 3 ML VIAL SUBCUT ONE (20:10)
[2018-09-23] MEDS: INSULIN LISPRO 100 UNIT/ML 3 ML VIAL SUBCUT PRN (01:52)
[2018-09-23] MEDS: OCTREOTIDE ACETATE INJ/PF 100 MCG/1 ML SDV IV SCH (05:11)
[2018-09-23 05:59] LABS: HEMOGLOBIN 10.8 g/dL (13.5-17.0); MEAN CORPUSCULAR HGB CONC 33.9 g/dL (32.0-36.0); MEAN CORPUSCULAR VOLUME 91 fl (80-97); PLATELET COUNT 425 10^3/uL (150-450); RED CELL DISTRIBUTION WIDTH 13.2 % (11.5-14.0); WHITE BLOOD COUNT 21.2 10^3/uL (4.0-10.5)
[2018-09-23 06:21] LABS: ABSOLUTE LYMPHOCYTES# (MANUAL) 2.8 10^3/uL (0.5-4.7); ABSOLUTE MONOCYTES # (MANUAL) 1.7 10^3/uL (0.1-1.4); ABSOLUTE NEUTROPHILS# (MANUAL) 15.7 10^3/uL (1.7-8.2); ANION GAP 8 (5-19); BASOPHILS % (MANUAL) 0 % (0-2); BLOOD UREA NITROGEN 12 mg/dL (7-20); CALCIUM 7.6 mg/dL (8.4-10.2); CARBON DIOXIDE 32 mmol/L (22-30); CHLORIDE 97 mmol/L (98-107); EOSINOPHILS % (MANUAL) 5 % (0-6); GLUCOSE 114 mg/dL (75-110); LYMPHOCYTES % (MANUAL) 13 % (13-45); MONOCYTES % (MANUAL) 8 % (3-13); NUCLEATED RED BLOOD CELLS 1 /100 WBC (0); POTASSIUM 3.4 mmol/L (3.6-5.0); SEGMENTED NEUTROPHILS % (MAN) 74 % (42-78); SODIUM 136.7 mmol/L (137-145); TOTAL CELLS COUNTED 100
[2018-09-23 06:35] LABS: PLATELET COMMENT ADEQUATE; RBC MORPHOLOGY COMMENT NORMO-CYTIC/CHROMIC; TOXIC GRANULATION SLIGHT; TOXIC VACUOLATION PRESENT
--- NOTE | 2018-09-23 08:00 | PDOC PROGRESS REPORT ---
Subjective Progress Note for:: 09/23/18 Reason For Visit: R19.02 LEFT UPPER QUADRANT ABDOMINAL SWELLING, MAS post op distal pancreatectomy,splenectomy Physical Exam Vital Signs: Temp Pulse Resp BP Pulse Ox 98.1 F 90 17 111/57 L 95 09/22/18 23:04 09/22/18 23:04 09/22/18 23:04 09/22/18 23:04 09/22/18 23:04 Intake & Output 09/22/18 09/23/18 09/24/18 06:59 06:59 06:59 Intake Total 1816 2473 Output Total 860 380 165 Balance 956 2093 -165 Weight 103.6 kg 101.5 kg General appearance: PRESENT: no acute distress, cooperative Head exam: PRESENT: atraumatic Respiratory exam: PRESENT: clear to auscultation merissa Cardiovascular exam: PRESENT: RRR GI/Abdominal exam: PRESENT: soft - rik still with serous drainage Results Laboratory Results: 09/23/18 05:07 09/23/18 05:07 09/23/18 09/23/18 05:07 05:07 WBC 21.2 H RBC 3.50 L Hgb 10.8 L Hct 32.0 L MCV 91 MCH 31.0 MCHC 33.9 RDW 13.2 Plt Count 425 Seg Neutrophils % Not Reportable Lymphocytes % Not Reportable Monocytes % Not Reportable Eosinophils % Not Reportable Basophils % Not Reportable Absolute Neutrophils Not Reportable Absolute Lymphocytes Not Reportable Absolute Monocytes Not Reportable Absolute Eosinophils Not Reportable Absolute Basophils Not Reportable Sodium 136.7 L Potassium 3.4 L Chloride 97 L Carbon Dioxide 32 H Anion Gap 8 BUN 12 Creatinine 0.84 Est GFR ( Amer) > 60 Est GFR (Non-Af Amer) > 60 Glucose 114 H Calcium 7.6 L Impressions: Chest X-Ray 09/09/18 11:35 IMPRESSION: NO SIGNIFICANT RADIOGRAPHIC FINDING IN THE CHEST. KUB X-Ray 09/13/18 12:37 IMPRESSION: Nasogastric tube tip and side port in the stomach. Left upper quadrant Tian-Bell drain. Grossly nonobstructive bowel gas pattern Upper GI Series 09/20/18 00:00 IMPRESSION: Nondiagnostic upper GI series due to limitations as noted above. Patient was unable to ingest enough oral contrast to visualize gastric fundus and assess for extravasation. Patient requested to have study discontinued due to discomfort. Unable to obtain AP, right oblique, left oblique and right lateral views of the stomach as patient refused to change positions. As noted CT of the abdomen shows leakage of oral Omnipaque contrast. Abdomen/Pelvis CT 09/22/18 00:00 IMPRESSION: 1. Increase in in the subphrenic, left upper quadrant extravasated fluid collection. 2. Similar additional left upper quadrant fluid collection, as above. 3. No additional interval changes. Assessment & Plan - Plan Summary Plan Summary: pt doing well ct yesterday still shows extravasation of some contrast rik drain inarea of extrav, capturing well pt is afebrile and feels ok he wants to go home I suspect leak can be managed non operatively with rik drain in place, it is well captured pt lives 5 min from hospital he is bg a full liquid diet and clear liquids we will teach him sliding scale insulin coverage and how to care for the rik drain I also will prescribe cipro 500mg bid will see him back in 2 days in office and manage him as outpatient his final path is still pending at [facility] he will see Dr Giron as out patient.
--- NOTE | 2018-09-23 08:19 | Discharge Summary ---
Discharge Summary (SDC) - Discharge Final Diagnosis: pancreatic/splenic mass Date of Surgery: 09/12/18 Condition: Good Treatment or Instructions: pt will be discharged home today on po full liquids he will be discharge home on sliding insulin scale 350-400 glucose 18 units regular insulin 300-349 glucose 15 units regular insulin 250-299 glucose 12 units regular insulin 200-249 glucose 10 units regular insulin pt will f/u with me in 2 days in [facility] Referrals: MICHELLE ROSADO MD [Primary Care Provider] - Discharge Diet: Diabetic, Full Liquids - pt should be discharged home on diabetic full liquids Discharge Activity: Activity As Tolerated Home Care Assistance: Provided by Family Activities Provided by Home Health Agency: ADL's Other Items to Report to MD: fever, chills sweats, pain
[2018-09-23] MEDS ORDERED: HAEMPH B POLYSAC CONJ-MENIN/PF 0.5 ML VIAL IM ONE (09:00)
[2018-09-23] MEDS ORDERED: PNEUMOCOCCAL 23-VAL P-SAC VAC 0.5 ML VIAL IM ONE (09:00)
[2018-09-23] MEDS: HEPARIN SOD (PORCINE) 5,000 UNIT/ML 1 ML SYRINGE SUBCUT SCH (09:08)
--- NOTE | 2018-09-23 09:18 | PDOC PROGRESS REPORT ---
Subjective Progress Note for:: 09/23/18 Subjective:: Patient seen with Dr. Solis and at bedside. Feeling well. Anxious to go home. Not sleeping well in hospital. Anxious. Reason For Visit: R19.02 LEFT UPPER QUADRANT ABDOMINAL SWELLING, MAS Physical Exam Vital Signs: Temp Pulse Resp BP Pulse Ox 97.3 F 76 18 100/50 L 96 09/23/18 07:57 09/23/18 07:57 09/23/18 07:57 09/23/18 07:57 09/23/18 07:57 Intake & Output 09/22/18 09/23/18 09/24/18 06:59 06:59 06:59 Intake Total 1816 2473 Output Total 860 380 165 Balance 956 2093 -165 Weight 103.6 kg 101.5 kg General appearance: PRESENT: well-developed, well-nourished Head exam: PRESENT: normocephalic GI/Abdominal exam: PRESENT: other - Drain and dressings in place. Extremities exam: ABSENT: pedal edema Neurological exam: PRESENT: alert, awake Psychiatric exam: PRESENT: appropriate affect Skin exam: PRESENT: normal color Results Laboratory Results: 09/23/18 05:07 09/23/18 05:07 09/23/18 09/23/18 05:07 05:07 WBC 21.2 H RBC 3.50 L Hgb 10.8 L Hct 32.0 L MCV 91 MCH 31.0 MCHC 33.9 RDW 13.2 Plt Count 425 Seg Neutrophils % Not Reportable Lymphocytes % Not Reportable Monocytes % Not Reportable Eosinophils % Not Reportable Basophils % Not Reportable Absolute Neutrophils Not Reportable Absolute Lymphocytes Not Reportable Absolute Monocytes Not Reportable Absolute Eosinophils Not Reportable Absolute Basophils Not Reportable Sodium 136.7 L Potassium 3.4 L Chloride 97 L Carbon Dioxide 32 H Anion Gap 8 BUN 12 Creatinine 0.84 Est GFR ( Amer) > 60 Est GFR (Non-Af Amer) > 60 Glucose 114 H Calcium 7.6 L Impressions: Chest X-Ray 09/09/18 11:35 IMPRESSION: NO SIGNIFICANT RADIOGRAPHIC FINDING IN THE CHEST. KUB X-Ray 09/13/18 12:37 IMPRESSION: Nasogastric tube tip and side port in the stomach. Left upper quadrant Tian-Bell drain. Grossly nonobstructive bowel gas pattern Upper GI Series 09/20/18 00:00 IMPRESSION: Nondiagnostic upper GI series due to limitations as noted above. Patient was unable to ingest enough oral contrast to visualize gastric fundus and assess for extravasation. Patient requested to have study discontinued due to discomfort. Unable to obtain AP, right oblique, left oblique and right lateral views of the stomach as patient refused to change positions. As noted CT of the abdomen shows leakage of oral Omnipaque contrast. Abdomen/Pelvis CT 09/22/18 00:00 IMPRESSION: 1. Increase in in the subphrenic, left upper quadrant extravasated fluid collection. 2. Similar additional left upper quadrant fluid collection, as above. 3. No additional interval changes. Assessment & Plan - Diagnosis (1) Pancreatic mass Is this a current diagnosis for this admission?: Yes Plan: We discussed the fact that we are still waiting on the final report from [facility], but they believe this is a lymphoma, although Flow Cytometry was negative. We discussed treatment for this would include chemotherapy and patient will need port placed. He is agreeable to this as outpatient. Will also need PET/CT arranged as outpatient. (2) Leukocytosis Is this a current diagnosis for this admission?: Yes Plan: Improving. Most likely reactive. But may also be due to the lymphoma. (3) Anemia Qualifiers: Anemia type: unspecified type Qualified Code(s): D64.9 - Anemia, u nspecified Is this a current diagnosis for this admission?: Yes - Plan Summary Plan Summary: I will arrange for follow-up appointments.
--- NOTE | 2018-09-23 13:48 | Discharge Summary ---
Discharge Summary (SDC) - Discharge Final Diagnosis: s/p distal pancreatectomy/splenectomy please see dictation for hospital course Date of Surgery: 09/12/18 Condition: Good Treatment or Instructions: pt will be discharged home today on po full liquids he will be discharge home on sliding insulin scale 350-400 glucose 18 units regular insulin 300-349 glucose 15 units regular insulin 250-299 glucose 12 units regular insulin 200-249 glucose 10 units regular insulin pt will f/u with me in 2 days in [facility] Referrals: [facility] [Provider Group] - 09/25/18 10:15 am MICHELLE ROSADO MD [Primary Care Provider] - 10/01/18 3:15 pm Discharge Activity: Activity As Tolerated Home Care Assistance: Provided by Family Activities Provided by Home Health Agency: ADL's Other Items to Report to MD: fever, chills sweats, pain
[2018-09-23 14:10] VITALS: BP 103/60
--- NOTE | 2018-09-24 11:27 | DISCHARGE SUMMARY E ---
Discharge Summary NAME: MARILUZ SANDOVAL SR : 1960 AGE: 58Y ADMITTED: 09/12/2018 DISCHARGED: 09/23/2018 ADMISSION DIAGNOSIS: Pancreatic/splenic mass. DISCHARGE DIAGNOSIS: Pancreatic lymphoma. OPERATIONS/PROCEDURE: Distal pancreatectomy and splenectomy. SURGEON: Favian Rodriguez M.D. HOSPITAL COURSE: The patient is a 58-year-old male who was admitted to the hospital for an elective distal pancreatectomy and splenectomy for a distal pancreatic mass that was extended to the hilum of the spleen. He underwent an attempted laparoscopic, converted to open distal pancreatectomy on 09/12/2018. Postoperatively he did well initially. He had a Tian-Bell drain next to his cut edge of his pancreas that was draining minimally for the first 3 or 4 days. When the patient started taking clear liquid diet we noted some increased drainage via the Tian-Bell drain. He was then sent down for a CAT scan subsequent to that which documented a small leak from the greater curvature of his stomach that was adhesed to the tumor. Subsequent to that, however, the patient remained stable without elevated temperature and without any evidence of sepsis. We followed his white blood count and his platelet count throughout his hospital course, which had been elevated since his surgeries secondary to his leukocytosis and thrombocytosis because of the splenectomy. He continued to do well but, however, became frustrated with the length of time he was in the hospital after about 4 or 5 days. He was up ambulating throughout the entire hospital course and sipping on clear liquids. He was sent back down for an upper GI study which really did not document an excess leak of contrast from his stomach; however, he only took minimal amounts of p.o. contrast. He had resumption of bowel function shortly after that upper GI with passing normal bile-tinged bowel movements. He continued to request a diet and we felt that since his leak was well captured by his Tian-Bell drain he can continue on the clear liquids. He subsequently then was advanced to full liquid diet where he started taking different pureed foods such as Jello and pudding, all tinged a specific color so we could identify anything in the drain, and there was really never any colored substance emanating from the drain. He also continued to do well throughout the remainder of his hospital course. However, he did have a CT scan the day before discharge and it did still document a small leak that was well captured by the Tian-Bell drain. On the day of discharge he was requesting again to be discharged home since he was not on any IV fluids in the hospital, taking enough p.o. liquids without a significant amount of leak from the Tian-Bell drain, and passing normal bowel movements. He remained afebrile. He still had a leukocytosis; however, this was slowly trending down. He only lives 5 minutes from the hospital, and since we had stopped his antibiotics and his IV fluids we felt it was safe to be able to send him home at this point and with close monitoring. He will be followed up in approximately 48 hours after his discharge in my office for management of the drain and to check his overall status. He was also noted in the hospital to have some elevated blood glucoses, probably secondary to the lymphoma in the pancreas and the fact that he had a distal pancreatectomy. He was instructed in insulin sliding scale and will be discharged home on Humalog insulin regular as well as a glucometer and insulin syringes. He was given diabetic teaching in the hospital by the diabetic teaching staff. He was also given nutritional teaching prior to his discharge by the melting operator who is instructing him on a low-sugar, full-liquid diet. He was instructed only to take full liquids until I see him back in the office and continue milking the drain and monitoring its output. His discharge medications include the insulin, glucometer, insulin syringes, and ciprofloxacin 500 mg p.o. b.i.d. He is being discharged home, and he will receive a phone call tomorrow to check on his status, and then the day after will be followed up with me in the clinic, and we will continue that until we have resolution of the leak and his overall status improves. DICTATING PHYSICIAN: FAVIAN RODRIGUEZ M.D. [id number] PHY#: [id number] ID: [id number] JOB#: [id number] ACCT: [id number] cc:FAVIAN RODRIGUEZ M.D. >
== END 2018-09-23 14:25 | disposition home or self-care (01) | DRG 822 ==
LOC: INOR 11:57 → EDSTATUS 14:00 → 4N 18:29
PROVIDERS: ADMIT Surgery; ATTEND Surgery
PROC: 07BP0ZZ Excision of Spleen, Open Approach (ICD-10-PCS; 2018-09-12)
PROC: 0FBG0ZZ Excision of Pancreas, Open Approach (ICD-10-PCS; 2018-09-12)
PROC: 0FJ Hepatobiliary System and Pancreas, Inspection (ICD-10-PCS; principal; 2018-09-12 14:00)
DX: C83.37 Diffuse large B-cell lymphoma, spleen (principal); C83.39 Diffuse large B-cell lymphoma, extranodal and solid organ sites; I95.9 Hypotension, unspecified; Z53.31 Laparoscopic surgical procedure converted to open procedure; E11.9 Type 2 diabetes mellitus without complications; I10 Essential (primary) hypertension; D64.9 Anemia, unspecified; Z79.84 Long term (current) use of oral hypoglycemic drugs; Z79.899 Other long term (current) drug therapy; Z80.8 Family history of malignant neoplasm of other organs or systems; Z87.891 Personal history of nicotine dependence
CPT/HCPCS: 36415; 71046; 74018; 74176; 74247; 790; 80048; 80051; 80053; 82150; 82947; 82962; 83690; 84132; 85025; 85027; 85610; 85730; 86850; 86900; 86901; 88184; 88185; 88233; 88262; 88309; 88331; 88341; 88342; 90471; 90647; 90686; 90732; 93005; 93010; G0008; G0009; J0131; J0330; J0690; J1100; J1170; J1644; J1815; J2250; J2354; J2405; J2704; J3010; J3490; J7030; J7040; J7120; P9047

== ENCOUNTER → 2018-09-25 | Outpatient (CLI) | payer BC ==
[2018-09-25 12:28] LABS: ABSOLUTE BASOPHILS # (AUTO) 0.1 10^3/uL (0.0-0.2); ABSOLUTE EOSINOPHILS # (AUTO) 0.3 10^3/uL (0.0-0.6); ABSOLUTE LYMPHOCYTES (AUTO) 1.8 10^3/uL (0.5-4.7); ABSOLUTE MONOCYTES (AUTO) 1.4 10^3/uL (0.1-1.4); ABSOLUTE NEUT (AUTO) 12.5 10^3/uL (1.7-8.2); BASOPHILS % (AUTO) 0.4 % (0-2); EOSINOPHILS % (AUTO) 1.6 % (0-6); HEMATOCRIT 31.5 % (37.9-51.0); HEMOGLOBIN 10.6 g/dL (13.5-17.0); LYMPHOCYTES % (AUTO) 11.4 % (13-45); MEAN CORPUSCULAR HEMOGLOBIN 30.6 pg (27.0-33.4); MEAN CORPUSCULAR HGB CONC 33.7 g/dL (32.0-36.0); MEAN CORPUSCULAR VOLUME 91 fl (80-97); MONOCYTES % (AUTO) 8.6 % (3-13); PLATELET COUNT 705 10^3/uL (150-450); RED BLOOD COUNT 3.47 10^6/uL (4.35-5.55); RED CELL DISTRIBUTION WIDTH 13.3 % (11.5-14.0); TOTAL CELLS COUNTED % (AUTO) 100 %
[2018-09-25 12:49] LABS: ALANINE AMINOTRANSFERASE 17 U/L (21-72); ALBUMIN 2.6 g/dL (3.5-5.0); ALKALINE PHOSPHATASE 163 U/L (38-126); ANION GAP 9 (5-19); ASPARTATE AMINO TRANSFERASE 32 U/L (17-59); BILIRUBIN,DIRECT 0.5 mg/dL (0.0-0.4); BILIRUBIN,TOTAL 0.8 mg/dL (0.2-1.3); BLOOD UREA NITROGEN 10 mg/dL (7-20); CALCIUM 7.5 mg/dL (8.4-10.2); CARBON DIOXIDE 33 mmol/L (22-30); CHLORIDE 90 mmol/L (98-107); GLUCOSE 274 mg/dL (75-110); SODIUM 131.6 mmol/L (137-145); TOTAL PROTEIN 5.3 g/dL (6.3-8.2)
--- NOTE | 2018-09-25 16:58 | XCELERA REPORT ---
[address] [address] Lower Extremity Venous Evaluation Procedure: Color flow and duplex imaging bilaterally of the veins of the lower extremities as well as the Common Femoral veins. Right Sided Venous Evaluation Abnormal vessel filling wall to wall, compression and no Colour flow in short segment of one of paired Posterior Tibial veins. Otherwise quite normal down to the infrageniculate veins. Left Sided Venous Evaluation Abnormal vessel filling wall to wall, compression and no Colour flow in short segment of one of paired Posterior Tibial veins. Otherwise quite normal down to the infrageniculate veins. Critical Findings Discussed with Dr Rodriguez. Interpretation Summary Very limited Deep Venous thrombosis in Posterior Tibial veins, bilaterally. Name: LORI MARILUZ MARKS Age: 58 yrs Gender: Male : 1960 Patient Status: Outpatient Patient Location: Study Date: 09/25/2018 01:25 PM Reason For Study: PAIN IN LEGS Ordering Physician: MARGY RODRIGUEZ Performed By: Margie Villatoro : MARGY RODRIGUEZ > Arvin Eugene
== END ==
LOC: SP 12:19
PROVIDERS: ATTEND Surgery
DX: I82.443 Acute embolism and thrombosis of tibial vein, bilateral (principal); M79.605 Pain in left leg; M79.604 Pain in right leg
CPT/HCPCS: 36415; 80053; 85025; 93970

== ENCOUNTER → 2018-10-06 | Outpatient (CLI) | payer BC ==
--- NOTE | 2018-10-07 09:55 | RADIOLOGY REPORT (SQ) ---
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 TECHNIQUE: Blood glucose level was verified. Above dose of FDG was injected intravenously. 2-D seg mented attenuation correction images were obtained from the base of the skull to the midthighs. Nonc ontrast CT images were obtained for attenuation correction and fusion with emission images. CT image s were performed without oral or intravenous contrast and are not sensitive for parenchymal lesions. A series of overlapping emission PET images were obtained. Images reviewed and manipulated at [facility] work station by the radiologist. Images stored on PACS. LIMITATIONS: None. FINDINGS: HEAD AND NECK: No areas of abnormal metabolic activity in the soft tissues of the head and neck. CHEST: Enlarged right axillary lymph node 4.5 x 3 cm in size on axial image 83/303, with SUV of 7.4. This is compatible with clinical diagnosis of lymphoma. Mediastinal and anterior chest lymph nodes are also present as follows: 10 mm left internal mammary lymph node axial image 92/3 of 3, SUV 2.6 2 x 1.3 cm left hilar cardiophrenic lymph node axial image 0110/303 with SUV of 6 2.6 x 1.2 cm right pericardial phrenic lymph node axial image 124/303 SUV of 4.8 1.6 x 1 cm right pericardial phrenic lymph node axial image 125/93 with SUV 2.3 2 x 1 cm right subcarinal lymph node in the mediastinum, axial image 107/303 with SUV 5.8 ABDOMEN AND PELVIS: Patient has had a splenectomy and distal pancreatectomy. There is a left upper q uadrant Tian-Bell drain which has been pulled back about 15 cm since the prior CT abdomen pelvis 09/22/2018. At the tip of the Tian-Bell drain, an 8 x 6 cm abscess cavity is present on axial marilee ge 127/303 with peripheral rim of increased metabolic activity with SUV of 10. Scattered throughout the peritoneal space there are multiple areas of increased metabolic activity wi th SUV of 10, likely related to inflammation from persistent gastric leaking PROXIMAL LOWER EXTREMITIES: No areas of abnormal metabolic activity in the soft tissues of the lower extremities. BONES: No abnormal metabolic activity in the visualized skeleton. ADDITIONAL CT FINDINGS: Liver background activity 1.0 SUV. Blood pool background activity 0.6 SUV OTHER: No other significant findings. IMPRESSION: 4.5 x 3 cm right axillary lymph node, hypermetabolic compatible with diagnosis of lympho ma. Remainder of the mediastinal/ chest adenopathy and abdominal activity is likely reactive, related to a persistent gastric fundal perforation and regional inflammation TECHNICAL DOCUMENTATION: JOB ID: [id number] [employer]- All Rights Reserved Reading location - IP/workstation name: [email or web address]
== END ==
LOC: RAD 15:27
PROVIDERS: ATTEND Internal Medicine Hematology & Oncology
DX: C83.7 Burkitt lymphoma (principal)
CPT/HCPCS: 78815; A9552

== ENCOUNTER → 2018-10-07 | Outpatient (CLI) | payer BC ==
[2018-10-07 16:57] LABS: ABSOLUTE EOSINOPHILS # (AUTO) 0.4 10^3/uL (0.0-0.6); ABSOLUTE LYMPHOCYTES (AUTO) 1.7 10^3/uL (0.5-4.7); BASOPHILS % (AUTO) 0.5 % (0-2); EOSINOPHILS % (AUTO) 4.1 % (0-6); HEMATOCRIT 30.5 % (37.9-51.0); HEMOGLOBIN 10.1 g/dL (13.5-17.0); MEAN CORPUSCULAR HEMOGLOBIN 29.6 pg (27.0-33.4); MEAN CORPUSCULAR HGB CONC 33.1 g/dL (32.0-36.0); MEAN CORPUSCULAR VOLUME 89 fl (80-97); PLATELET COUNT 683 10^3/uL (150-450); RED BLOOD COUNT 3.41 10^6/uL (4.35-5.55); RED CELL DISTRIBUTION WIDTH 14.1 % (11.5-14.0); SEGMENTED NEUTROPHILS % (AUTO) 68.4 % (42-78); TOTAL CELLS COUNTED % (AUTO) 100 %; WHITE BLOOD COUNT 10.2 10^3/uL (4.0-10.5)
[2018-10-07 17:18] LABS: ANION GAP 9 (5-19); BLOOD UREA NITROGEN 10 mg/dL (7-20); CALCIUM 8.2 mg/dL (8.4-10.2); CARBON DIOXIDE 31 mmol/L (22-30); CHLORIDE 93 mmol/L (98-107); GLUCOSE 200 mg/dL (75-110); POTASSIUM 3.7 mmol/L (3.6-5.0); SODIUM 132.6 mmol/L (137-145)
--- NOTE | 2018-10-07 18:06 | XCELERA REPORT ---
[address] [address] Lower Extremity Venous Evaluation Procedure: Color flow and duplex imaging of the veins of the left lower extremity as well as the right Common Femoral vein. Right Sided Venous Evaluation Abnormal vessel filling lack of compression and Colour flow in one of two Posterior tibial veins. Left Sided Venous Evaluation The left common femoral vein is fully compressible. Spontaneous and phasic flow is present in the left common femoral vein. Interpretation Summary Continuing finding of limited DVT in one Posterior Tibial vein on the right , normal otherwise. Name: MARILUZ SANDOVAL Age: 58 yrs Gender: Male : 1960 Patient Status: Outpatient Patient Location: Study Date: 10/07/2018 05:00 PM Reason For Study: RIGHT LEG SWELLING Ordering Physician: MARGY RODRIGUEZ Performed By: Laura Waite : MARGY RODRIGUEZ > Arvin Eugene
== END ==
LOC: SP 15:52
PROVIDERS: ATTEND Surgery
DX: C85.90 Non-Hodgkin lymphoma, unspecified, unspecified site (principal); M79.89 Other specified soft tissue disorders
CPT/HCPCS: 36415; 80048; 85025; 93971

== ENCOUNTER 2018-10-08 05:20 | Day surgery (SDC) | payer BC ==
[~2018-10-08 05:20] MED LIST changes: +CEFAZOLIN 1 GM/D5W RTU 1 GM/50 ML RTUPB IV PRN; -DEXAMETHASONE SOD PHOSPHATE INJ 4 MG/1 ML VIAL ONE; -GLYCOPYRROLATE 1 MG/5 ML SYRINGE ONE; -HEP B VACCINE/DP(A)T-POLIO INJ/PF 0.5 ML DISP.SYRIN IM PRN; -LACTATED RINGERS 1000 ML IV PRN; -LIDOCAINE 0.5% INJ-PF (5 MG/ML) 50 ML SDV SUBCUT PRN; -NEOSTIGMINE METHYLSULFATE 10 MG/10 ML VIAL ONE; -ONDANSETRON HCL INJ/PF 4 MG/2 ML SDV ONE; -ROCURONIUM BROMIDE INJ 50 MG/5 ML VIAL IV ONE; -SUCCINYLCHOLINE CHLORIDE INJ 200 MG/10 ML VIAL ONE
[2018-10-08] MEDS ORDERED: CEFAZOLIN 1 GM/D5W RTU 1 GM/50 ML RTUPB IV ONE (05:55)
[2018-10-08 07:08] LABS: ABSOLUTE BASOPHILS # (AUTO) 0.2 10^3/uL (0.0-0.2); ABSOLUTE EOSINOPHILS # (AUTO) 0.2 10^3/uL (0.0-0.6); ABSOLUTE LYMPHOCYTES (AUTO) 1.6 10^3/uL (0.5-4.7); ABSOLUTE MONOCYTES (AUTO) 1.2 10^3/uL (0.1-1.4); ABSOLUTE NEUT (AUTO) 10.3 10^3/uL (1.7-8.2); BASOPHILS % (AUTO) 1.3 % (0-2); EOSINOPHILS % (AUTO) 1.5 % (0-6); HEMATOCRIT 29.6 % (37.9-51.0); HEMOGLOBIN 9.7 g/dL (13.5-17.0); LYMPHOCYTES % (AUTO) 11.6 % (13-45); MEAN CORPUSCULAR HEMOGLOBIN 29.5 pg (27.0-33.4); MEAN CORPUSCULAR HGB CONC 32.9 g/dL (32.0-36.0); MEAN CORPUSCULAR VOLUME 90 fl (80-97); MONOCYTES % (AUTO) 9.1 % (3-13); PLATELET COUNT 674 10^3/uL (150-450); RED CELL DISTRIBUTION WIDTH 14.2 % (11.5-14.0); SEGMENTED NEUTROPHILS % (AUTO) 76.5 % (42-78); TOTAL CELLS COUNTED % (AUTO) 100 %; WHITE BLOOD COUNT 13.5 10^3/uL (4.0-10.5)
[2018-10-08] MEDS ORDERED: FENTANYL CITRATE INJ/PF 100 MCG/2 ML AMPUL ONE (07:15)
[2018-10-08] MEDS ORDERED: MIDAZOLAM 2 MG/2 ML INJ ONE (07:15)
[2018-10-08] MEDS ORDERED: ONDANSETRON HCL INJ/PF 4 MG/2 ML SDV ONE (07:15)
[2018-10-08] MEDS ORDERED: PROPOFOL INJ 200 MG/20 ML VIAL IV ONE (07:16)
[2018-10-08] MEDS ORDERED: BUPIVACAINE HCL 0.5%-EPI 1:200000 INJ/PF 30 ML VIAL ONE (07:19)
[2018-10-08 07:26] LABS: POTASSIUM 3.7 mmol/L (3.6-5.0)
[2018-10-08] MEDS ORDERED: FENTANYL CITRATE INJ/PF 100 MCG/2 ML AMPUL IV PRN ×3 (09:00)
[2018-10-08] MEDS ORDERED: MORPHINE SULFATE 10 MG/ML INJ IV PRN (09:00)
[2018-10-08] MEDS ORDERED: MEPERIDINE HCL/PF INJ 25 MG/1 ML DISP.SYRIN IV PRN (09:00)
[2018-10-08] MEDS ORDERED: PROMETHAZINE HCL INJ 25 MG/1 ML VIAL IV PRN (09:00)
[2018-10-08] MEDS ORDERED: DIPHENHYDRAMINE HCL 50 MG/ML VIAL IV PRN (09:00)
[2018-10-08] MEDS ORDERED: OXYCODONE-ACETAMINOPHEN 5-325 MG TABLET PO PRN (09:06)
--- NOTE | 2018-10-08 09:07 | Operative Report ---
Operative Report DATE OF SURGERY: 10/08/18 PREOPERATIVE DIAGNOSIS: lymphoma POSTOPERATIVE DIAGNOSIS: lymphoma OPERATION: left chest thorocentesis and portacath placement. SURGEON: MARGY RODRIGUEZ ANESTHESIA: Moderate Sedation TISSUE REMOVED OR ALTERED: none COMPLICATIONS: none ESTIMATED BLOOD LOSS: 5cc. INTRAOPERATIVE FINDINGS: see dictation PROCEDURE: see dictation
--- NOTE | 2018-10-08 09:10 | Discharge Summary ---
Discharge Summary (SDC) - Discharge Final Diagnosis: lymphoma Date of Surgery: 10/08/18 Condition: Good Referrals: MICHELLE ROSADO MD [Primary Care Provider] - Respiratory Treatments at Home: Deep Breathing/Coughing Discharge Activity: Activity As Tolerated Home Care Assistance: None Needed Activities Provided by Home Health Agency: ADL's Report the Following to Your Physician Immediately: Shortness of Breath, Nausea, Vomiting, Increase in Pain
--- NOTE | 2018-10-08 10:10 | RADIOLOGY REPORT (SQ) ---
EXAM DESCRIPTION: CHEST SINGLE VIEW COMPLETED DATE/TIME: 10/08/2018 9:32 am REASON FOR STUDY: portacath placemtn COMPARISON: 09/09/2018 EXAM PARAMETERS: NUMBER OF VIEWS: One view. TECHNIQUE: Single frontal radiographic view of the chest acquired. RADIATION DOSE: NA LIMITATIONS: None. FINDINGS: LUNGS AND PLEURA: No pneumothorax. MEDIASTINUM AND HILAR STRUCTURES: No masses. Contour normal. HEART AND VASCULAR STRUCTURES: Heart normal in size. Normal vasculature. BONES: No acute findings. HARDWARE: None in the chest. OTHER: Left-sided port tip overlying SVC. IMPRESSION: Satisfactory port placement. No pneumothorax. TECHNICAL DOCUMENTATION: JOB ID: [id number] [employer]- All Rights Reserved Reading location - IP/workstation name: [email or web address]
[2018-10-08 11:42] VITALS: BP 113/80
--- NOTE | 2018-10-08 14:09 | RADIOLOGY REPORT (SQ) ---
EXAM DESCRIPTION: FLUORO/CV PLACEMENT COMPLETED DATE/TIME: 10/08/2018 10:55 am REASON FOR STUDY: PORT CATH PLACEMENT LEFT AST. W/ FLURO IN OR COMPARISON: None. FLUOROSCOPY TIME: 1.8 4 images saved to PACS. TECHNIQUE: Intra-operative images acquired during surgical procedure to evaluate progress. NUMBER OF IMAGES: 4 LIMITATIONS: None. FINDINGS: Intraoperative fluoroscopic images obtained of left chest port placement. Please see oper ative report for detailed description of the procedure. IMPRESSION: IMAGE(S) OBTAINED DURING PROCEDURE. COMMENT: Quality ID [id number]: Final reports for procedures using fluoroscopy that document radiation exp osure indices, or exposure time and number of fluorographic images (if radiation exposure indices are not available) Please consult full operative report of the attending physician for description of the procedure. TECHNICAL DOCUMENTATION: JOB ID: [id number] [employer]- All Rights Reserved Reading location - IP/workstation name: [email or web address]
--- NOTE | 2018-10-10 10:27 | OPERATIVE REPORT E ---
Operative Report NAME: MARILUZ SANDOVAL : 1960 AGE: 58Y DATE OF SURGERY: ROOM: PREOPERATIVE DIAGNOSIS: Splenic lymphoma, status post distal pancreatectomy, splenectomy. POSTOPERATIVE DIAGNOSIS: Splenic lymphoma, status post distal pancreatectomy, splenectomy. OPERATIVE PROCEDURE: Left chest thoracentesis and Port-A-Cath placement. SURGEON: MARGY RODRIGUEZ M.D. INDICATIONS FOR OPERATION: This is a 58-year-old man who is about 3 weeks status post a distal pancreatectomy, splenectomy for what proved to be a splenic lymphoma. Postoperatively he developed a gastric leak from the greater curvature of the stomach, which he has a drain in place for. He has been doing relatively well; however, has developed a left pleural effusion, which appears to be sympathetic. In addition to that he will need chemotherapy in the next week or so and, therefore, it has been requested by the oncologist a Port-A-Cath be placed. PROCEDURE: The patient was brought to the operating room in awake, alert, and stable condition, placed on the operating table, and given IV sedation. He was then placed in the sitting position and his left posterior chest was prepped and draped in the usual sterile fashion. After using 1% lidocaine with epinephrine, at the inferior edge of the left scapula about the 6th intercostal space a skin wheal was raised at the midclavicular line. A 16 gauge needle was then used to chu the parietal pleura and through that needle a wire was placed. The wire was removed and an introducer catheter was placed over the wire into the left chest. We then aspirated about 600 mL of a clear yellow serous fluid until dry. The catheter was then removed and a sterile dressing was applied to the left chest. We then placed the patient in a supine position on the operating table and he was given IV sedation. The left chest and neck were prepped and draped in the usual sterile fashion for a Port-A-Cath placement. Using an 18 gauge needle, a subclavian stick was made and a wire was placed into the needle using a Seldinger technique and confirmed in the superior vena cava on fluoroscopy. The needle was removed and a tear-away introducer dilator was placed over the wire into the superior vena cava using fluoroscopy. The wire was removed. The dilator was then removed. Through the introducer we used the 8-Divehi Port-A-Cath catheter, placed in through tear-away introducer, confirmed in a good position and the tear-away introducer was torn away. This left the tip of the catheter in the superior vena cava. We then picked a point on the anterior chest wall just above the left nipple and anesthetized the skin with 1% lidocaine plain. A transverse incision was made. A pocket was created for the port. Using the tunnel maker supplied with the kit, the catheter was then tunneled from the subclavian stick site to the port site in the subcutaneous tissue. It was then connected to the port, which was placed into the pocket. We then confirmed good position using fluoroscopy and then the catheter and port were heparinized with a heparinized saline solution. The subcutaneous tissue was then reapproximated with interrupted 3-0 Polysorb suture. The skin was closed intracuticular 4-0 Rapide suture. Sterile dressings were applied at the termination of the procedure. Confirmation chest x-ray confirmed no pneumothorax and good placement of the port. Complications were none. Estimated blood loss was less than 10 mL. Sponge and needle counts were correct x2. DICTATING PHYSICIAN: MARGY RODRIGUEZ M.D. [id number] PHY#: [id number] ID: [id number] JOB#: [id number] ACCT: [id number] cc:MARGY RODRIGUEZ M.D. >
== END 2018-10-08 11:32 | disposition home or self-care (01) ==
LOC: OROUT 05:20
PROVIDERS: ATTEND Surgery
DX: C83.07 Small cell B-cell lymphoma, spleen (principal); J90 Pleural effusion, not elsewhere classified; I82.409 Acute embolism and thrombosis of unspecified deep veins of unspecified lower extremity; R19.02 Left upper quadrant abdominal swelling, mass and lump; E11.9 Type 2 diabetes mellitus without complications; I10 Essential (primary) hypertension; Z87.891 Personal history of nicotine dependence; Z79.82 Long term (current) use of aspirin; Z79.899 Other long term (current) drug therapy; Z79.4 Long term (current) use of insulin; Z90.81 Acquired absence of spleen; Z90.411 Acquired partial absence of pancreas
CPT/HCPCS: 36561; 32554; 36415; 82947; 84132; 85025; 71045; 77001; C1788; Q9967; J2250; J3490; J0690; J3010; J2405; J2704; J1642; 532

== ENCOUNTER 2018-10-12 20:29 | Emergency (ER) | payer BC ==
[2018-10-12 20:54] VITALS: BP 119/72
== END 2018-10-12 21:31 | disposition left against medical advice (07) ==
LOC: ER 20:29
DX: Z53.21 Procedure and treatment not carried out due to patient leaving prior to being seen by health care provider (principal)

== ENCOUNTER → 2018-10-17 | Outpatient (CLI) | payer BC | LOC: RAD 07:43 | PROVIDERS: ATTEND Surgery | DX: R11.0 Nausea (principal); R10.9 Unspecified abdominal pain; Z53.8 Procedure and treatment not carried out for other reasons ==

== ENCOUNTER → 2018-10-18 | Outpatient (CLI) | payer BC ==
--- NOTE | 2018-10-18 12:08 | RADIOLOGY REPORT (SQ) ---
EXAM DESCRIPTION: CT ABD/PELVIS ORAL ONLY COMPLETED DATE/TIME: 10/18/2018 10:44 am REASON FOR STUDY: K86.89 OTHER SPECIFIED DISEASES OF PANCREAS K86.89 OTHER SPECIFIED DISEASES OF PA NCREAS R10.9 UNSPECIFIED ABDOMINAL PAIN R11.0 NAUSEA COMPARISON: PET-CT 10/06/2018 CT abdomen pelvis 09/22/2018, 10/29/2018, 08/23/2018 TECHNIQUE: CT scan of the abdomen and pelvis performed without intravenous contrast. Patient drank oral contrast. Images reviewed with lung, soft tissue, and bone windows. Reconstructed coronal and s agittal MPR images reviewed. All images stored on PACS. All CT scanners at this facility use dose modulation, iterative reconstruction, and/or weight based d osing when appropriate to reduce radiation dose to as low as reasonably achievable (ALARA). [facility]: Dose Right [facility]: CareDose [facility]: Dose Right [facility]: Teradose 4D [facility]: Smart [employer] RADIATION DOSE: CT Rad equipment meets quality standard of care and radiation dose reduction techniq ues were employed. CTDIvol: 17.7 mGy. DLP: 1059 mGy-cm.mGy. LIMITATIONS: None. FINDINGS: Patient drank oral contrast. There is no CT evidence of bowel obstruction. In the left upper quadrant, a persistent gastric fundal VT is identified on axial images 18-20, filli ng the left subdiaphragmatic pocket of fluid measuring about 9 x 4.5 cm size (was 10 x 10 cm on 2018). Two left upper quadrant Tian-Bell drains communicate with the cavity, best shown on coron al reconstruction images 16 through 42, and sagittal reconstruction images 60 through 77. A 7 x 3.5 cm fluid collection is present along the pancreatic tail sutures (was 4 x 2 cm on 09/22/2018 ). On today's study, a new fluid collection is present paralleling the greater curvature of stomach charles g the lesser sac, measuring 5 x 4 x 4 cm in size. There is a small amount of fluid in the right subphrenic space, new compared to 10/09/2018. Diffuse inflammation of the mesenteric fat is present with diffuse increased attenuation. Reactive m esenteric adenopathy is present. LOWER CHEST: A moderate left pleural effusion is present, slightly decreased in size compared to 10/06. Persistent left basilar atelectasis in the posterior costophrenic sulcus. NON-CONTRASTED LIVER, SPLEEN, ADRENALS: Spleen surgically absent. Liver, adrenal glands unremarkable PANCREAS: Pancreatic tail resection. 7 x 3.5 cm fluid collection along the pancreatic tail sutures a s above GALLBLADDER: No identified stones by CT criteria. No inflammatory changes to suggest cholecystitis. RIGHT KIDNEY AND URETER: No suspicious masses. Assessment limited by lack of IV contrast. No signif icant calcifications. No hydronephrosis or hydroureter. LEFT KIDNEY AND URETER: No suspicious masses. Assessment limited by lack of IV contrast. No signifi cant calcifications. No hydronephrosis or hydroureter. AORTA AND RETROPERITONEUM: No aneurysm. No retroperitoneal masses or adenopathy. BOWEL AND PERITONEAL CAVITY: As above APPENDIX: Normal. PELVIS, BLADDER, AND ABDOMINAL WALL:Small amount of free pelvic fluid BONES: No significant findings. OTHER: No other significant finding. IMPRESSION: Decrease in size of the left upper quadrant air and fluid collection. There is still le akage of oral contrast from the stomach fundus into this collection. Tian-Bell drains are seen a long the anterior inferior aspect of this collection. Increase in right subphrenic fluid, fluid at the pancreatic tail. New fluid collection at greater cu rvature of stomach. COMMENT: Quality ID # [id number]: Final reports with documentation of one or more dose reduction techniques (e.g., Automated exposure control, adjustment of the mA and/or kV according to patient size, use of iterative reconstruction technique) TECHNICAL DOCUMENTATION: JOB ID: [id number] [employer]- All Rights Reserved Reading location - IP/workstation name: [email or web address]
== END ==
LOC: RAD 10:07
PROVIDERS: ATTEND Surgery
DX: K86.89 Other specified diseases of pancreas (principal); R10.9 Unspecified abdominal pain; R11.0 Nausea; J90 Pleural effusion, not elsewhere classified
CPT/HCPCS: 74176

== ENCOUNTER → 2018-10-21 | Outpatient (CLI) | payer BC ==
[2018-10-21 15:47] LABS: ABSOLUTE BASOPHILS # (AUTO) 0.1 10^3/uL (0.0-0.2); ABSOLUTE EOSINOPHILS # (AUTO) 0.1 10^3/uL (0.0-0.6); ABSOLUTE LYMPHOCYTES (AUTO) 1.5 10^3/uL (0.5-4.7); ABSOLUTE MONOCYTES (AUTO) 1.3 10^3/uL (0.1-1.4); ABSOLUTE NEUT (AUTO) 14.6 10^3/uL (1.7-8.2); BASOPHILS % (AUTO) 0.7 % (0-2); EOSINOPHILS % (AUTO) 0.7 % (0-6); HEMATOCRIT 35.8 % (37.9-51.0); HEMOGLOBIN 11.7 g/dL (13.5-17.0); LYMPHOCYTES % (AUTO) 8.4 % (13-45); MEAN CORPUSCULAR HEMOGLOBIN 28.5 pg (27.0-33.4); MEAN CORPUSCULAR HGB CONC 32.8 g/dL (32.0-36.0); MEAN CORPUSCULAR VOLUME 87 fl (80-97); MONOCYTES % (AUTO) 7.4 % (3-13); PLATELET COUNT 919 10^3/uL (150-450); RED BLOOD COUNT 4.11 10^6/uL (4.35-5.55); RED CELL DISTRIBUTION WIDTH 14.2 % (11.5-14.0); SEGMENTED NEUTROPHILS % (AUTO) 82.8 % (42-78); TOTAL CELLS COUNTED % (AUTO) 100 %; WHITE BLOOD COUNT 17.7 10^3/uL (4.0-10.5)
--- NOTE | 2018-10-21 15:57 | RADIOLOGY REPORT (SQ) ---
EXAM DESCRIPTION: NM MUGA REST COMPLETED DATE/TIME: 10/21/2018 3:36 pm REASON FOR STUDY: Z51.11 ENCOUNTER FOR ANTINEOPLASTIC CHEMOTHERAPY Z08 ENCNTR FOR FOLLOW-UP EXAM AF TER TRTMT FOR MALIGNANT NEOP COMPARISON: None. RADIONUCLIDE AND DOSE: 21.6 mCi technetium 99m labeled red blood cells The route of agent administration: Intravenous TECHNIQUE: Following administration of the radionuclide, gated images of the heart are obtained in t hree projections. Left ventricular functional analysis performed. LIMITATIONS: None. FINDINGS: LEFT VENTRICULAR FUNCTION: EJECTION FRACTION: 77%. END-DIASTOLIC VOLUME: 93 mL. END-SYSTOLIC VOLUME: 24 mL. WALL MOTION: No focal wall motion abnormalities. OTHER: No other significant finding. IMPRESSION: NORMAL CARDIAC MUGA STUDY. NORMAL LEFT VENTRICULAR FUNCTION WITH VALUES ABOVE. TECHNICAL DOCUMENTATION: JOB ID: [id number] [employer]- All Rights Reserved Reading location - IP/workstation name: [email or web address]
[2018-10-21 16:12] LABS: ALANINE AMINOTRANSFERASE < 6 U/L (21-72); ALBUMIN 3.6 g/dL (3.5-5.0); ALKALINE PHOSPHATASE 133 U/L (38-126); ANION GAP 13 (5-19); ASPARTATE AMINO TRANSFERASE 202 U/L (17-59); BILIRUBIN,DIRECT 0.4 mg/dL (0.0-0.4); BILIRUBIN,TOTAL 0.6 mg/dL (0.2-1.3); BLOOD UREA NITROGEN 11 mg/dL (7-20); CALCIUM 8.8 mg/dL (8.4-10.2); CARBON DIOXIDE 32 mmol/L (22-30); CHLORIDE 91 mmol/L (98-107); GLUCOSE 104 mg/dL (75-110); POTASSIUM 3.4 mmol/L (3.6-5.0); SODIUM 135.6 mmol/L (137-145); TOTAL PROTEIN 6.7 g/dL (6.3-8.2)
== END ==
LOC: RAD 13:39
PROVIDERS: ATTEND Internal Medicine Hematology & Oncology
DX: Z13.6 Encounter for screening for cardiovascular disorders (principal); Z08 Encounter for follow-up examination after completed treatment for malignant neoplasm; I82.409 Acute embolism and thrombosis of unspecified deep veins of unspecified lower extremity; R19.02 Left upper quadrant abdominal swelling, mass and lump
CPT/HCPCS: 36415; 85025; 80053; 78472; A9560; Q9969

== ENCOUNTER 2018-10-25 04:50 | Inpatient (IN) | payer BC ==
[2018-10-25] MEDS ORDERED: FENTANYL CITRATE INJ/PF 100 MCG/2 ML AMPUL IV ONE ×3 (05:05→06:14)
[2018-10-25] MEDS ORDERED: NORMAL SALINE 1000 ML 1,000 ML IV PRN (05:05)
[2018-10-25] MEDS ORDERED: NORMAL SALINE 1000 ML 1,000 ML IV ONE ×3 (05:05→06:00)
[2018-10-25] MEDS ORDERED: ERTAPENEM SODIUM INJ 1 GM VIAL IV ONE (05:06)
[2018-10-25] MEDS ORDERED: ONDANSETRON HCL INJ/PF 4 MG/2 ML SDV IV ONE (05:09)
--- NOTE | 2018-10-25 05:14 | ER Document Report ---
Doctor's Note Notes: 10/25/18 05:10 I performed triage evaluation the patient. Patient is a 58-year-old male who presents with complaint of pain into his back and feeling very unwell and weak. He said vomiting. Patient's history is that he had a distal pancreactomy and splenectomy that was performed on March 02, [address] Solis. This was performed patient had masses in both pancreas and spleen which turned out to be lymphoma. Patient is now followed by Dr. Giron, oncologist. He started chemotherapy yesterday. Positive second dose of chemotherapy today. He says he has been vomiting. Is not been able hold on antibiotics he was discharged home on. He says he is not had fevers but has felt very weak and unwell. No chest pain going to his back which he has had since he was diagnosed with the tumors however he says it has worsened. In triage patient is hypotensive. He says that he was dehydrated earlier this week and actually received IV fluids at the oncologist office. He says amount of drainage in his Tian-Bell drain is increasing. He does have some redness of the skin around the wound however this is been ongoing issue likely related to drainage getting on the skin. On exam patient is weak appearing. In triage his blood pressure was in the 80s systolic however in the room he is normotensive. Heart rate is 57. He is unwell appearing and I suspect he could potentially be septic based on his recent surgery and him being unable to hold on his antibiotics and therefore I will give him a dose of Invanz. Blood cultures have been ordered. Will order CT scan with IV and oral contrast so that he will start drinking the contrast. We will manage his pain. We will continue to follow him closely until the ED provider arrives to take over care. On exam he does have some pain to palpation however his abdomen is soft. He does have some abnormal appearing drainage coming from around the J-tube site. Lung pierce are clear. Does have a port in left upper chest. No redness or swelling around the port site. Dictation of this chart was performed using voice recognition software; therefore, there may be some unintended grammatical errors. 10/25/18 05:35
[2018-10-25 05:23] LABS: HEMATOCRIT 33.4 % (37.9-51.0); HEMOGLOBIN 10.9 g/dL (13.5-17.0); MEAN CORPUSCULAR HEMOGLOBIN 28.4 pg (27.0-33.4); MEAN CORPUSCULAR HGB CONC 32.6 g/dL (32.0-36.0); MEAN CORPUSCULAR VOLUME 87 fl (80-97); PLATELET COUNT 752 10^3/uL (150-450); RED BLOOD COUNT 3.84 10^6/uL (4.35-5.55); RED CELL DISTRIBUTION WIDTH 14.5 % (11.5-14.0); WHITE BLOOD COUNT 20.1 10^3/uL (4.0-10.5)
[2018-10-25 05:39] LABS: ABSOLUTE MONOCYTES # (MANUAL) 0.8 10^3/uL (0.1-1.4); ABSOLUTE NEUTROPHILS# (MANUAL) 18.3 10^3/uL (1.7-8.2); ALANINE AMINOTRANSFERASE 23 U/L (21-72); ALBUMIN 3.1 g/dL (3.5-5.0); ALKALINE PHOSPHATASE 128 U/L (38-126); ANION GAP 16 (5-19); ANISOCYTOSIS SLIGHT; ASPARTATE AMINO TRANSFERASE 376 U/L (17-59); BASOPHILS % (MANUAL) 0 % (0-2); BILIRUBIN,DIRECT 0.3 mg/dL (0.0-0.4); BILIRUBIN,TOTAL 0.5 mg/dL (0.2-1.3); BLOOD UREA NITROGEN 23 mg/dL (7-20); CALCIUM 8.2 mg/dL (8.4-10.2); CARBON DIOXIDE 28 mmol/L (22-30); CHLORIDE 88 mmol/L (98-107); EOSINOPHILS % (MANUAL) 0 % (0-6); GLUCOSE 240 mg/dL (75-110); LIPASE 136.9 U/L (23-300); LYMPHOCYTES % (MANUAL) 5 % (13-45); MONOCYTES % (MANUAL) 4 % (3-13); PLATELET COMMENT INCREASED; POTASSIUM 3.8 mmol/L (3.6-5.0); SEGMENTED NEUTROPHILS % (MAN) 91 % (42-78); SODIUM 131.6 mmol/L (137-145); TOTAL CELLS COUNTED 100; TOTAL PROTEIN 5.5 g/dL (6.3-8.2)
--- NOTE | 2018-10-25 06:02 | RADIOLOGY REPORT (SQ) ---
EXAM DESCRIPTION: XR CHEST 1 VIEW COMPLETED DATE/TME: 10/25/2018 05:04 CLINICAL HISTORY: 58 years, Male, hypotension COMPARISON: 10/08/2018 NUMBER OF VIEWS: One TECHNIQUE: AP view of the chest LIMITATIONS: None. FINDINGS: The lungs are clear. The heart is normal in size. There is no pneumothorax or pleural effusion. The left chest wall port terminates within the SVC. The bones are unchanged IMPRESSION: No acute cardiopulmonary abnormality copyright 2010 [employer]- All Rights Reserved
[2018-10-25] MEDS ORDERED: POTASSI CL 20 MEQ/1/2NS 1L 20 MEQ/1,000 ML RTUINJ IV PRN (07:31)
[2018-10-25] MEDS ORDERED: PIPERACILLIN/TAZOBACTAM 3.375 GM VIAL IV ONE (07:39)
--- NOTE | 2018-10-25 07:45 | ER Document Report ---
ED General - General Chief Complaint: Abdominal Pain Stated Complaint: ABDOMINAL PAIN Time Seen by Provider: 10/25/18 05:04 TRAVEL OUTSIDE OF THE [place] IN LAST 30 DAYS: No - HPI Patient complains to provider of: Abdominal pain nausea vomiting feeling unwell Notes: Patient coming in for evaluation of abdominal pain nausea vomiting feeling unwell patient was seen by the nighttime provider who has notes provided below I performed triage evaluation the patient. Patient is a 58-year-old male who presents with complaint of pain into his back and feeling very unwell and weak. He said vomiting. Patient's history is that he had a distal pancreactomy and splenectomy that was performed on March 02, [address] Solis. This was performed patient had masses in both pancreas and spleen which turned out to be lymphoma. Patient is now followed by Dr. Giron, oncologist. He started chemotherapy yesterday. Positive second dose of chemotherapy today. He says he has been vomiting. Is not been able hold on antibiotics he was discharged home on. He says he is not had fevers but has felt very weak and unwell. No chest pain going to his back which he has had since he was diagnosed with the tumors however he says it has worsened. In triage patient is hypotensive. He says that he was dehydrated earlier this week and actually received IV fluids at the oncologist office. He says amount of drainage in his Tian-Bell drain is increasing. He does have some redness of the skin around the wound however this is been ongoing issue likely related to drainage getting on the skin. On exam patient is weak appearing. In triage his blood pressure was in the 80s systolic however in the room he is normotensive. Heart rate is 57. He is unwell appearing and I suspect he could potentially be septic based on his recent surgery and him being unable to hold on his antibiotics and therefore I will give him a dose of Invanz. Blood cultures have been ordered. Will order CT scan with IV and oral contrast so that he will start drinking the contrast. We will manage his pain. We will continue to follow him closely until the ED provider arrives to take over care. On exam he does have some pain to palpation however his abdomen is soft. He does have some abnormal appearing drainage coming from around the J-tube site. Lung pierce are clear. Does have a port in left upper chest. No redness or swelling around the port site. Patient was signed out to me upon my evaluation patient states pain has improved patient denies any fevers denies any chills patient stating that he is having difficulty time and tolerating oral contrast. - Related Data Allergies/Adverse Reactions: No Known Allergies Allergy (Verified 10/08/18 06:06) Past Medical History - Social History Smoking Status: Unknown if Ever Smoked Family History: Reviewed & Not Pertinent Patient has suicidal ideation: No Patient has homicidal ideation: No - Past Medical History Cardiac Medical History: Reports: Hx Hypertension Denies: Hx Atrial Fibrillation, Hx Congestive Heart Failure, Hx Coronary Artery Disease, Hx Heart Attack, Hx Hypercholesterolemia, Hx Peripheral Vascular Disease, Hx Heart Murmur Pulmonary Medical History: Denies: Hx Asthma, Hx Bronchitis, Hx COPD, Hx Pneumonia Neurological Medical History: Denies: Hx Cerebrovascular Accident, Hx Seizures Endocrine Medical History: Reports: Hx Diabetes Mellitus Type 2. Denies: Hx Graves' Disease, Hx Hyperthyroidism, Hx Hypothyroidism Renal/ Medical History: Denies: Hx Peritoneal Dialysis Musculoskeletal Medical History: Denies Hx Arthritis Past Surgical History: Reports: Hx Herniorrhaphy, Hx Tonsillectomy. Denies: Hx Appendectomy, Hx Bowel Surgery, Hx Cholecystectomy, Hx Coronary Artery Bypass Graft, Hx Gastric Bypass Surgery - Immunizations Hx Pneumococcal Vaccination: 09/23/18 Review of Systems - Review of Systems Constitutional: No symptoms reported EENT: No symptoms reported Cardiovascular: No symptoms reported Respiratory: No symptoms reported Gastrointestinal: Abdominal pain, Nausea, Vomiting Genitourinary: No symptoms reported Male Genitourinary: No symptoms reported Musculoskeletal: No symptoms reported Skin: No symptoms reported Hematologic/Lymphatic: No symptoms reported Neurological/Psychological: No symptoms reported -: Yes All other systems reviewed and negative Physical Exam - Vital signs Vitals: Pulse Resp BP Pulse Ox 98 14 85/47 L 98 10/25/18 05:04 10/25/18 05:04 10/25/18 05:04 10/25/18 05:04 Interpretation: Normal - General General appearance: Alert. No: Appears well - Uncomfortable - HEENT Head: Normocephalic, Atraumatic Eyes: Normal Pupils: PERRL - Respiratory Respiratory status: No respiratory distress Chest status: Nontender Breath sounds: Normal Chest palpation: Normal - Cardiovascular Rhythm: Regular Heart sounds: Normal auscultation Murmur: No - Abdominal Inspection: Normal, Obese Bowel sounds: Normal Tenderness: Other - Diffuse tenderness patient does have a JF drain some excoriation of the abdomen Organomegaly: No organomegaly - Back Back: Normal, Nontender - Extremities General upper extremity: Normal inspection, Nontender, Normal color, Normal ROM, Normal temperature General lower extremity: Normal inspection, Nontender, Normal color, Normal ROM, Normal temperature, Normal weight bearing. No: Wilfrido's sign - Neurological Neuro grossly intact: Yes Cognition: Normal Orientation: AAOx4 Reagan Coma Scale Eye Opening: Spontaneous Reagan Coma Scale Verbal: Oriented [place] Coma Scale Motor: Obeys Commands Reagan Coma Scale Total: 15 Speech: Normal Motor strength normal: LUE, RUE, LLE, RLE Sensory: Normal - Psychological Associated symptoms: Normal affect, Normal mood - Skin Skin Temperature: Warm Skin Moisture: Dry Skin Color: Normal Course - Re-evaluation Re-evalutation: 10/25/18 14:45 Laboratory studies returned showing leukocytosis 20 Dr. Solis surgeon down at bedside to evaluate the patient states that he will be the patient to contact the PCP and oncology teams did contact PCP Norris Reich MD states that he will be on consult also notified the oncologist Dr. Shaneka white stoker installation mechanic for Dr. Ellis states he will see the patient here in in the hospital. Patient's vital signs continued to remain stable CT scan showed improvement of the fluid collections. Patient will be admitted for further evaluation - Vital Signs Vital signs: Temp Pulse Resp BP Pulse Ox 97.6 F 98 16 157/99 H 92 10/25/18 07:35 10/25/18 05:04 10/25/18 11:00 10/25/18 11:00 10/25/18 11:00 - Laboratory Result Diagrams: 10/25/18 05:04 10/25/18 05:04 Laboratory results interpreted by me: 10/25/18 10/25/18 05:04 05:04 WBC 20.1 H RBC 3.84 L Hgb 10.9 L Hct 33.4 L RDW 14.5 H Plt Count 752 H Seg Neuts % (Manual) 91 H Lymphocytes % (Manual) 5 L Abs Neuts (Manual) 18.3 H Sodium 131.6 L Chloride 88 L BUN 23 H Glucose 240 H Calcium 8.2 L AST 376 H Alkaline Phosphatase 128 H Total Protein 5.5 L Albumin 3.1 L Discharge - Discharge Clinical Impression: Pancreatic cancer, Pancreatic fluid leak Leukocytosis Qualifiers: Leukocytosis type: unspecified Qualified Code(s): D72.829 - Elevated white blood cell count, unspecified Anemia Qualifiers: Anemia type: unspecified type Qualified Code(s): D64.9 - Anemia, unspecified Lymphoma Qualifiers: Lymphoma type: unspecified type Condition: Good Disposition: ADMITTED INPATIENT Admitting Provider: Surgicalist - [facility] Unit Admitted: Medical Floor
--- NOTE | 2018-10-25 07:49 | PDOC H&P ---
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 has been at home last 3 wk. started chemo rx yesterday developed acute back pain and weakness early this am at 2am because of back pain and weakness came to er this am. Past Medical History Cardiac Medical History: Reports: Hypertension Denies: Atrial Fibrillation, Congestive Heart Failure, Coronary Artery Dis ease, Myocardial Infarction, Hyperlipidema, Peripheral Vascular Disease, Heart Murmur Pulmonary Medical History: Denies: Asthma, Bronchitis, Chronic Obstructive Pulmonary Disease (COPD), Pneumonia Neurological Medical History: Denies: Seizures Endocrine Medical History: Reports: Diabetes Mellitus Type 2 Denies: Hyperthyroidism, Hypothyroidism Musculoskeltal Medical History: Denies: Arthritis Hematology: Denies: Anemia Past Surgical History Past Surgical History: Reports: Herniorrhaphy - s/p distal pancreatectomy/splenectomy, Tonsillectomy Denies: Appendectomy, Cholecystectomy, Coronary Artery Bypass Graft, Gastric Bypass Surgery Social History Smoking Status: Unknown if Ever Smoked Frequency of Alcohol Use: None Family History Parental Family History Reviewed: No Children Family History Reviewed: NA Sibling(s) Family History Reviewed.: NA Medication/Allergy Home Medications: Aspirin [Adult Aspirin Regimen] 81 mg PO 10/08/18 Potassium Chloride 10/08/18 Allergies/Adverse Reactions: No Known Allergies Allergy (Verified 10/08/18 06:06) Review of Systems Constitutional: PRESENT: as per HPI Eyes: PRESENT: as per HPI Ears: PRESENT: as per HPI Nose, Mouth, and Throat: PRESENT: as per HPI Cardiovascular: PRESENT: as per HPI Respiratory: PRESENT: as per HPI Gastrointestinal: PRESENT: as per HPI Genitourinary: PRESENT: as per HPI Musculoskeletal: PRESENT: as per HPI Integumentary: PRESENT: as per HPI Neurological: PRESENT: as per HPI Psychiatric: PRESENT: as per HPI Endocrine: PRESENT: as per HPI Hematologic/Lymphatic: PRESENT: as per HPI Allergic/Immunologic: PRESENT: as per HPI Physical Exam Vital Signs: Temp Pulse Resp BP Pulse Ox 97.6 F 98 22 H 125/75 90 L 10/25/18 07:35 10/25/18 05:04 10/25/18 05:30 10/25/18 05:30 10/25/18 06:28 Intake & Output 10/24/18 10/25/18 10/26/18 06:59 06:59 06:59 Intake Total 1000 Balance 1000 Weight 90.9 kg General appearance: PRESENT: mild distress Head exam: PRESENT: atraumatic Eye exam: PRESENT: conjunctiva pink Mouth exam: PRESENT: dry mucosa Neck exam: PRESENT: full ROM Respiratory exam: PRESENT: clear to auscultation merissa Cardiovascular exam: PRESENT: RRR Pulses: PRESENT: normal carotid pulses, normal radial pulses, normal femoral pulses Vascular exam: PRESENT: normal capillary refill GI/Abdominal exam: PRESENT: other - abd soft, drain intact with pancreatic fluid leak Neurological exam: PRESENT: alert, awake, oriented to person, oriented to place, oriented to time, oriented to situation Skin exam: PRESENT: dry Results Laboratory Results: 10/25/18 05:04 10/25/18 05:04 10/25/18 10/25/18 05:04 05:04 WBC 20.1 H RBC 3.84 L Hgb 10.9 L Hct 33.4 L MCV 87 MCH 28.4 MCHC 32.6 RDW 14.5 H Plt Count 752 H Seg Neutrophils % Not Reportable Lymphocytes % Not Reportable Monocytes % Not Reportable Eosinophils % Not Reportable Basophils % Not Reportable Absolute Neutrophils Not Reportable Absolute Lymphocytes Not Reportable Absolute Monocytes Not Reportable Absolute Eosinophils Not Reportable Absolute Basophils Not Reportable Sodium 131.6 L Potassium 3.8 Chloride 88 L Carbon Dioxide 28 Anion Gap 16 BUN 23 H Creatinine 0.92 Est GFR ( Amer) > 60 Est GFR (Non-Af Amer) > 60 Glucose 240 H Calcium 8.2 L Total Bilirubin 0.5 AST 376 H ALT 23 Alkaline Phosphatase 128 H Total Protein 5.5 L Albumin 3.1 L Lipase 136.9 Impressions: Chest X-Ray 10/25/18 05:04 IMPRESSION: No acute cardiopulmonary abnormality copyright 2011 [employer]- All Rights Reserved Assessment & Plan - Inpatient Certification Medical Necessity: Need Close Monitoring Due to Risk of Patient Decompensation, Need For IV Fluids - Plan Summary Plan Summary: admit for hydration, pain control w/u of elevated wbc\ emperic abx\ ct scan
[2018-10-25 07:59] LABS: INTERNATIONAL RATION (INR) 1.07; PARTIAL THROMBOPLASTIN TIME 32.9 SEC (23.5-35.8); PROTHROMBIN TIME 14.5 SEC (11.4-15.4)
[2018-10-25] MEDS ORDERED: VANCOMYCIN HCL 0 MG in DEXTROSE 5%-WATER 250 ML IV NR (08:00)
[2018-10-25] MEDS ORDERED: KETOROLAC TROMETHAMINE INJ/PF 30 MG/1 ML SDV ONE (08:09)
[2018-10-25] MEDS: ONDANSETRON HCL INJ/PF 4 MG/2 ML SDV IV PRN (08:14)
[2018-10-25] MEDS ORDERED: HYDROMORPHONE HCL INJ/PF 2 MG/ML AMPULE ONE (08:50)
--- NOTE | 2018-10-25 08:57 | EKG REPORT ---
SEVERITY:- BORDERLINE ECG - SINUS RHYTHM BORDERLINE T WAVE ABNORMALITIES : Confirmed by: Jody Lou MD 25-Oct-2018 08:57:15
[2018-10-25] MEDS ORDERED: HYDROMORPHONE HCL INJ/PF 2 MG/ML AMPULE IV PRN ×2 (09:10→09:13)
[2018-10-25] MEDS ORDERED: DEXTROSE 50%-WATER 25 GM/50 ML DISP.SYRIN IV PRN ×2 (09:15)
[2018-10-25] MEDS ORDERED: GLUCAGON,HUMAN RECOMB 1 MG INJ IM PRN (09:15)
[2018-10-25] MEDS ORDERED: DEXTROSE 40% GEL 15 GM TUBE PO PRN ×2 (09:15)
--- NOTE | 2018-10-25 09:18 | RADIOLOGY REPORT (SQ) ---
EXAM DESCRIPTION: CT ABD/PELVIS ORAL ONLY COMPLETED DATE/TIME: 10/25/2018 7:51 am REASON FOR STUDY: post op pain COMPARISON: 10/18/2018 TECHNIQUE: CT scan of the abdomen and pelvis performed with oral contrast and no intravenous contras t. Images reviewed with lung, soft tissue, and bone windows. Reconstructed coronal and sagittal MPR i mages reviewed. All images stored on PACS. All CT scanners at this facility use dose modulation, iterative reconstruction, and/or weight based d osing when appropriate to reduce radiation dose to as low as reasonably achievable (ALARA). [facility]: Dose Right [facility]: CareDose [facility]: Dose Right [facility]: Teradose 4D [facility]: [employer] RADIATION DOSE: CT Rad equipment meets quality standard of care and radiation dose reduction techniq ues were employed. CTDIvol: 16.4 mGy. DLP: 1006 mGy-cm. mGy. LIMITATIONS: Drank very little oral contrast. FINDINGS: Percutaneous drains in the left upper quadrant. Leakage of oral contrast into this collec tion which measures 6.4 x 3.0 cm, previously 9.4 x 4.3 cm. Drains communicate with this collection, sagittal image 91. Fluid collection adjacent to the pancreatic tail suture 6.6 x 3.2 cm, previously 7.2 x 3.6 cm. Slight increase in ascites. Diffuse inflammation in the upper quadrant peritoneum. There is oral contrast in the sigmoid colon and rectum from previous study. Small left pleural effusion not significantly changed. Study is otherwise unchanged. IMPRESSION: Decrease in left upper quadrant fluid collection which communicates with the known gastr ic leak. Slight decrease in fluid collection adjacent to the pancreatic tail sutures. Slight increa se in ascites. No bowel obstruction. TECHNICAL DOCUMENTATION: JOB ID: [id number] Quality ID # [id number]: Final reports with documentation of one or more dose reduction techniques (e.g., Au tomated exposure control, adjustment of the mA and/or kV according to patient size, use of iterative reconstruction technique) 2010 [employer]- All Rights Reserved Reading location - IP/workstation name: [email or web address]
--- NOTE | 2018-10-25 09:22 | PDOC CONSULTATION ---
Consultation Consult Date: 10/25/18 Consult reason:: Abdominal pain. NIDDM. Hypertension. Lymphoma History of Present Illness Admission Date/PCP: 10/25/18 08:07 MICHELLE ROSADO MD Patient complains of: The patient is being admitted because of severe abdominal pain that has started 24 hours after the chemotherapy History of Present Illness: MARILUZ SANDOVAL is a 58 year old male Past Medical History Cardiac Medical History: Reports: Hyperlipidema, Hypertension Denies: Atrial Fibrillation, Congestive Heart Failure, Coronary Artery Disease, Myocardial Infarction, Peripheral Vascular Disease, Heart Murmur Pulmonary Medical History: Denies: Asthma, Bronchitis, Chronic Obstructive Pulmonary Disease (COPD), Pneumonia Neurological Medical History: Denies: Seizures Endocrine Medical History: Reports: Diabetes Mellitus Type 2 Denies: Hyperthyroidism, Hypothyroidism Malignancy Medical History: Reports: Lymphoma Musculoskeltal Medical History: Denies: Arthritis Hematology: Denies: Anemia Past Surgical History Past Surgical History: Reports: Herniorrhaphy, Splenectomy, Tonsillectomy Denies: Appendectomy, Cholecystectomy, Coronary Artery Bypass Graft, Gastric Bypass Surgery Social History Information Source: Patient Lives with: Family Smoking Status: Unknown if Ever Smoked Frequency of Alcohol Use: None Drugs: None Family History Family History: Reviewed & Not Pertinent Parental Family History Reviewed: Yes Children Family History Reviewed: Yes Sibling(s) Family History Reviewed.: Yes Medication/Allergy Home Medications: Allopurinol [Zyloprim 300 mg Tablet] 300 mg PO DAILY 10/25/18 Ciprofloxacin [Cipro] 5 ml PO Q12 10/25/18 Duloxetine HCl [Cymbalta] 60 mg PO DAILY 10/25/18 Insulin Degludec [Tresiba Flextouch U-100] 10 unit SQ QHS 10/25/18 Loratadine [Claritin 10 mg Tablet] 10 mg PO DAILY 10/25/18 Ondansetron [Zofran Odt 4 mg Tablet] 8 mg PO Q8HP PRN 10/25/18 Potassium Chloride [Klor-Con M20] 20 meq PO DAILY 10/25/18 Prednisone [Deltasone 20 mg Tablet] 100 mg PO DAILY 10/25/18 Promethazine HCl [Phenergan 25 mg Tablet] 25 mg PO Q4HP PRN 10/25/18 Allergies/Adverse Reactions: No Known Allergies Allergy (Verified 10/08/18 06:06) Review of Systems All systems: as per PMH Physical Exam Vital Signs: Temp Pulse Resp BP Pulse Ox 97.6 F 98 22 H 125/75 90 L 10/25/18 07:35 10/25/18 05:04 10/25/18 05:30 10/25/18 05:30 10/25/18 06:28 Intake & Output 10/24/18 10/25/18 10/26/18 06:59 06:59 06:59 Intake Total 1000 Balance 1000 Weight 90.9 kg General appearance: PRESENT: severe distress Head exam: PRESENT: atraumatic Mouth exam: PRESENT: dry mucosa Neck exam: ABSENT: carotid bruit, JVD Respiratory exam: PRESENT: crackles Cardiovascular exam: PRESENT: RRR, +S1, +S2 GI/Abdominal exam: PRESENT: soft, tenderness. ABSENT: guarding Extremities exam: PRESENT: full ROM Musculoskeletal exam: PRESENT: ambulatory Neurological exam: PRESENT: alert, awake Psychiatric exam: PRESENT: anxious Results Laboratory Results: 10/25/18 05:04 10/25/18 05:04 10/25/18 10/25/18 05:04 05:04 WBC 20.1 H RBC 3.84 L Hgb 10.9 L Hct 33.4 L MCV 87 MCH 28.4 MCHC 32.6 RDW 14.5 H Plt Count 752 H Seg Neutrophils % Not Reportable Lymphocytes % Not Reportable Monocytes % Not Reportable Eosinophils % Not Reportable Basophils % Not Reportable Absolute Neutrophils Not Reportable Absolute Lymphocytes Not Reportable Absolute Monocytes Not Reportable Absolute Eosinophils Not Reportable Absolute Basophils Not Reportable Sodium 131.6 L Potassium 3.8 Chloride 88 L Carbon Dioxide 28 Anion Gap 16 BUN 23 H Creatinine 0.92 Est GFR ( Amer) > 60 Est GFR (Non-Af Amer) > 60 Glucose 240 H Calcium 8.2 L Total Bilirubin 0.5 AST 376 H ALT 23 Alkaline Phosphatase 128 H Total Protein 5.5 L Albumin 3.1 L Lipase 136.9 Impressions: Chest X-Ray 10/25/18 05:04 IMPRESSION: No acute cardiopulmonary abnormality copyright 2011 [employer]- All Rights Reserved Assessment & Plan - Diagnosis (1) Lymphoma Qualifiers: Lymphoma type: unspecified type Is this a current diagnosis for this admission?: Yes Plan: Continue current treatment as per recommendation by the hematology and oncology (2) Acute abdominal pain Is this a current diagnosis for this admission?: Yes Plan: Will need a lot of pain control status post chemotherapy and partial pancreatectomy and splenectomy (3) NIDDY (non-insulin dependent diabetes mellitus in young) Is this a current diagnosis for this admission?: Yes Plan: Because patient will be n.p.o. we will start on sliding scale insulin (4) Hypertension Qualifiers: Hypertension type: essential hypertension Qualified Code(s): I10 - Essential (primary) hypertension Is this a current diagnosis for this admission?: Yes Plan: Continue IV fluids and medications (5) Anemia Qualifiers: Anemia type: unspecified type Qualified Code(s): D64.9 - Anemia, unspecified Is this a current diagnosis for this admission?: Yes Plan: Continue current treatment (6) Leukocytosis Qualifiers: Leukocytosis type: unspecified Qualified Code(s): D72.829 - Elevated white blood cell count, unspecified Is this a current diagnosis for this admission?: Yes Plan: We will start IV antibiotics (7) Pancreatic mass Is this a current diagnosis for this admission?: Yes Plan: Status post partial pancreatectomy and splenectomy
[2018-10-25] MEDS: PIPERACILLIN SODIUM/TAZOBACTAM 3.375 GM in NORMAL SALINE 100 ML IV SCH ×3 (09:37→22:25)
[2018-10-25] MEDS ORDERED: HYDROMORPHONE HCL 30 MG/60 ML RTUINJ IV PRN (09:49)
[2018-10-25] MEDS: VANCOMYCIN HCL 1,000 MG in DEXTROSE 5%-WATER 250 ML IV SCH ×2 (10:15→18:04)
[2018-10-25] MEDS: INSULIN LISPRO 100 UNIT/ML 3 ML VIAL SUBCUT SCH ×2 (12:44→17:56)
[2018-10-25] MEDS ORDERED: KETOROLAC TROMETHAMINE INJ/PF 30 MG/1 ML SDV IV SCH (14:00)
[2018-10-25] MEDS: HEPARIN SOD (PORCINE) 5,000 UNIT/ML 1 ML SYRINGE SUBCUT SCH ×2 (15:27→22:25)
[2018-10-25] MEDS: POTASSI CL 20 MEQ/NS 1L 1,000 ML IV PRN (15:29)
[2018-10-25 16:14] LABS: APPEARANCE,URINE CLOUDY; BILIRUBIN,URINE NEGATIVE (NEGATIVE); COLOR,URINE YELLOW; GLUCOSE, URINE 50 mg/dL (NEGATIVE); KETONES,URINE TRACE mg/dL (NEGATIVE); LEUKOCYTE ESTERASE,URINE NEGATIVE (NEGATIVE); NITRITE,URINE NEGATIVE (NEGATIVE); PROTEIN,URINE 30 mg/dL (NEGATIVE); UROBILINOGEN,URINE NEGATIVE mg/dL (<2.0)
[2018-10-25] MEDS ORDERED: SILVER SULFADIAZINE 1% CREAM 400 GM TP PRN (17:27)
[2018-10-25] MEDS: KETOROLAC TROMETHAMINE INJ/PF 30 MG/1 ML SDV IV SCH (22:24)
[2018-10-26] MEDS: INSULIN LISPRO 100 UNIT/ML 3 ML VIAL SUBCUT SCH ×5 (00:41→23:02)
[2018-10-26] MEDS: VANCOMYCIN HCL 1,000 MG in DEXTROSE 5%-WATER 250 ML IV SCH ×2 (01:13→12:45)
[2018-10-26] MEDS: POTASSI CL 20 MEQ/NS 1L 1,000 ML IV PRN (01:14)
[2018-10-26] MEDS: PIPERACILLIN SODIUM/TAZOBACTAM 3.375 GM in NORMAL SALINE 100 ML IV SCH ×4 (02:59→22:24)
[2018-10-26] MEDS: KETOROLAC TROMETHAMINE INJ/PF 30 MG/1 ML SDV IV SCH (06:19)
[2018-10-26] MEDS: HEPARIN SOD (PORCINE) 5,000 UNIT/ML 1 ML SYRINGE SUBCUT SCH ×3 (06:19→23:07)
[2018-10-26 07:47] LABS: HEMATOCRIT 40.2 % (37.9-51.0); HEMOGLOBIN 12.6 g/dL (13.5-17.0); MEAN CORPUSCULAR HEMOGLOBIN 28.2 pg (27.0-33.4); MEAN CORPUSCULAR HGB CONC 31.5 g/dL (32.0-36.0); MEAN CORPUSCULAR VOLUME 90 fl (80-97); PLATELET COUNT 643 10^3/uL (150-450); RED BLOOD COUNT 4.48 10^6/uL (4.35-5.55); WHITE BLOOD COUNT 21.1 10^3/uL (4.0-10.5)
[2018-10-26 08:05] LABS: ALANINE AMINOTRANSFERASE 21 U/L (21-72); ALBUMIN 3.1 g/dL (3.5-5.0); ALKALINE PHOSPHATASE 132 U/L (38-126); ANION GAP 16 (5-19); ASPARTATE AMINO TRANSFERASE 387 U/L (17-59); BILIRUBIN,DIRECT 0.5 mg/dL (0.0-0.4); BILIRUBIN,TOTAL 0.6 mg/dL (0.2-1.3); BLOOD UREA NITROGEN 32 mg/dL (7-20); CALCIUM 7.9 mg/dL (8.4-10.2); CARBON DIOXIDE 24 mmol/L (22-30); CHLORIDE 97 mmol/L (98-107); GLUCOSE 108 mg/dL (75-110); LIPASE 323.3 U/L (23-300); SODIUM 136.5 mmol/L (137-145); TOTAL PROTEIN 5.5 g/dL (6.3-8.2)
[2018-10-26 08:10] LABS: POTASSIUM 6.2 mmol/L (3.6-5.0)
[2018-10-26 08:22] LABS: ABSOLUTE LYMPHOCYTES# (MANUAL) 0.4 10^3/uL (0.5-4.7); ABSOLUTE MONOCYTES # (MANUAL) 0.8 10^3/uL (0.1-1.4); ABSOLUTE NEUTROPHILS# (MANUAL) 19.8 10^3/uL (1.7-8.2); BASOPHILS % (MANUAL) 0 % (0-2); EOSINOPHILS % (MANUAL) 0 % (0-6); LYMPHOCYTES % (MANUAL) 2 % (13-45); MONOCYTES % (MANUAL) 4 % (3-13); SEGMENTED NEUTROPHILS % (MAN) 94 % (42-78); TOTAL CELLS COUNTED 100
[2018-10-26 08:23] LABS: PLATELET COMMENT INCREASED; TOXIC GRANULATION 1+
[2018-10-26] MEDS ORDERED: NORMAL SALINE 1000 ML 1,000 ML IV PRN (08:36)
[2018-10-26] MEDS ORDERED: SODIUM POLYSTYRENE SULFONATE 15 GM/60 ML PR ONE ×3 (09:00→18:15)
[2018-10-26] MEDS ORDERED: HYDROMORPHONE HCL INJ/PF 2 MG/ML AMPULE IV PRN ×2 (10:34→11:15)
[2018-10-26] MEDS: NORMAL SALINE 1000 ML 1,000 ML IV PRN (10:40)
--- NOTE | 2018-10-26 10:43 | PDOC PROGRESS REPORT ---
Subjective Progress Note for:: 10/26/18 Reason For Visit: LYMPHOMA Physical Exam Vital Signs: Temp Pulse Resp BP Pulse Ox 100.1 F 140 H 16 102/66 90 L 10/26/18 07:00 10/26/18 08:47 10/26/18 07:46 10/26/18 07:00 10/26/18 07:00 Intake & Output 10/25/18 10/26/18 10/27/18 06:59 06:59 06:59 Intake Total 1000 4383 Output Total 650 Balance 1000 3733 Weight 90.9 kg 97 kg General appearance: PRESENT: disheveled Head exam: PRESENT: atraumatic Eye exam: PRESENT: EOMI Mouth exam: PRESENT: dry mucosa - markedly dry mucosa, pt has difficulty talking Neck exam: PRESENT: full ROM Respiratory exam: PRESENT: clear to auscultation merissa, decreased breath sounds Cardiovascular exam: PRESENT: tachycardia Vascular exam: PRESENT: other - both feet cool to touch, doppler pulses bilat GI/Abdominal exam: PRESENT: soft - rik drain dark, pancreatic leak Neurological exam: PRESENT: other - pt sleepy but arousable and wakes to verbal stimuli Results Laboratory Results: 10/26/18 06:53 10/26/18 06:53 10/25/18 10/26/18 10/26/18 16:05 06:53 06:53 WBC 21.1 H RBC 4.48 Hgb 12.6 L Hct 40.2 MCV 90 MCH 28.2 MCHC 31.5 L RDW 15.0 H Plt Count 643 H Seg Neutrophils % Not Reportable Lymphocytes % Not Reportable Monocytes % Not Reportable Eosinophils % Not Reportable Basophils % Not Reportable Absolute Neutrophils Not Reportable Absolute Lymphocytes Not Reportable Absolute Monocytes Not Reportable Absolute Eosinophils Not Reportable Absolute Basophils Not Reportable Sodium 136.5 L Potassium 6.2 H* Chloride 97 L Carbon Dioxide 24 Anion Gap 16 BUN 32 H Creatinine 2.15 H Est GFR ( Amer) 38 L Est GFR (Non-Af Amer) 32 L Glucose 108 Calcium 7.9 L Magnesium 2.2 Total Bilirubin 0.6 AST 387 H ALT 21 Alkaline Phosphatase 132 H Total Protein 5.5 L Albumin 3.1 L Lipase 323.3 H Urine Color YELLOW Urine Appearance CLOUDY Urine pH 5.0 Ur Specific [place] 1.020 Urine Protein 30 H Urine Glucose (UA) 50 H Urine Ketones TRACE H Urine Blood NEGATIVE Urine Nitrite NEGATIVE Ur Leukocyte Esterase NEGATIVE Urine WBC (Auto) 4 Urine RBC (Auto) 0 Impressions: Abdomen/Pelvis CT 10/25/18 00:00 IMPRESSION: Decrease in left upper quadrant fluid collection which communicates with the known gastric leak. Slight decrease in fluid collection adjacent to the pancreatic tail sutures. Slight increase in ascites. No bowel obstruction. Chest X-Ray 10/25/18 05:04 IMPRESSION: No acute cardiopulmonary abnormality copyright 2011 [employer]- All Rights Reserved Assessment & Plan - Plan Summary Plan Summary: pt appears dehydrated with marginally low bp hct eleveted since yesterday creat up to 2.15 wbc up to 21k ct revewed yesterday with drainage cavity smaller and well captured by drain plan kaxelate enema for increased K+ iv hydration - 2 liters ns now will repeat labs later today after hydration
[2018-10-26] MEDS ORDERED: PNEUMOC 13-VAL CONJ-DIP CRM/PF 0.5 ML DISP.SYRIN IM PRN (11:00)
[2018-10-26 11:06] LABS: VANCOMYCIN,TROUGH 28.3 ug/mL (5.0-20.0)
[2018-10-26] MEDS ORDERED: INSULIN REG, HUMAN 100 UNIT/ML 3 ML VIAL (PYX) SUBCUT ONE (11:30)
[2018-10-26] MEDS ORDERED: CALCIUM GLUCONATE 1000 MG/10 ML INJ IV ONE ×2 (11:30→17:45)
[2018-10-26] MEDS: FLUCONAZOLE 200 MG/NS RTU 200 MG/100 ML RTUPB IV SCH (11:48)
[2018-10-26] MEDS: PANTOPRAZOLE SODIUM 40 MG VIAL IV SCH (11:48)
--- NOTE | 2018-10-26 12:07 | PDOC CONSULTATION ---
Consultation Consult Date: 10/26/18 Attending physician:: MARGY RODRIGUEZ Consult reason:: Known history of diffuse large B-cell lymphoma patient here with pain History of Present Illness Admission Date/PCP: 10/25/18 08:07 MICHELLE ROSADO MD Patient complains of: Pain History of Present Illness: MARILUZ SANDOVAL is a 58 year old male with known history of stage IV diffuse large B-cell lymphoma, status post surgery and continued gastric leak, received cycle #1 of Rituxan on , came in on Sunday with severe pain and weakness, intractable nausea and vomiting. We placed him on continuous pain pump over the last 12 hours and he became very sedated. He has significant third spacing, also became dehydrated and creatinine has increased. He was supposed to receive CHOP on Sunday but unfortunately was not able to receive that because he was in the ED. Pain has been better controlled now, today he does awaken to command, but was very lethargic this morning. Reviewed his labs, creatinine is up to 2, discussed with Dr. Rodriguez, has initiated fluid boluses and close monitoring. We went through his medications and discontinued any nephrotoxic agents. Pharmacy has been notified to look at the vancomycin dosing very closely. He had CT of the abdomen pelvis to reevaluate the gastric leak and it appears the same, there is continued leak. But no changes noted. No obstruction noted. Past Medical History Cardiac Medical History: Reports: Hypertension Denies: Atrial Fibrillation, Congestive Heart Failure, Coronary Artery Disease, Myocardial Infarction, Hyperlipidema, Peripheral Vascular Disease, Heart Murmur Pulmonary Medical History: Denies: Asthma, Bronchitis, Chronic Obstructive Pulmonary Disease (COPD), Pneumonia Neurological Medical History: Denies: Seizures Endocrine Medical History: Reports: Diabetes Mellitus Type 2 Denies: Hyperthyroidism, Hypothyroidism Malignancy Medical History: Reports: Lymphoma Musculoskeltal Medical History: Denies: Arthritis Psychiatric Medical History: Reports: Depression Hematology: Denies: Anemia Past Surgical History Past Surgical History: Reports: Herniorrhaphy, Splenectomy, Tonsillectomy Denies: Appendectomy, Cholecystectomy, Coronary Artery Bypass Graft, Gastric Bypass Surgery Social History Information Source: Relative Lives with: Family Smoking Status: Unknown if Ever Smoked Frequency of Alcohol Use: None Hx Recreational Drug Use: No Drugs: None Hx Prescription Drug Abuse: No - Advance Directive Resuscitation Status: Full Code Family History Family History: Reviewed & Not Pertinent Parental Family History Reviewed: Yes Children Family History Reviewed: Yes Sibling(s) Family History Reviewed.: Yes Medication/Allergy Home Medications: Allopurinol [Zyloprim 300 mg Tablet] 300 mg PO DAILY 10/25/18 Ciprofloxacin [Cipro] 5 ml PO Q12 10/25/18 Duloxetine HCl [Cymbalta] 60 mg PO DAILY 10/25/18 Insulin Degludec [Tresiba Flextouch U-100] 10 unit SQ QHS 10/25/18 Loratadine [Claritin 10 mg Tablet] 10 mg PO DAILY 10/25/18 Ondansetron [Zofran Odt 4 mg Tablet] 8 mg PO Q8HP PRN 10/25/18 Potassium Chloride [Klor-Con M20] 20 meq PO DAILY 10/25/18 Prednisone [Deltasone 20 mg Tablet] 100 mg PO DAILY 10/25/18 Promethazine HCl [Phenergan 25 mg Tablet] 25 mg PO Q4HP PRN 10/25/18 Allergies/Adverse Reactions: No Known Allergies Allergy (Verified 10/08/18 06:06) Review of Systems ROS unobtainable: Due to mental status Physical Exam Vital Signs: Temp Pulse Resp BP Pulse Ox 100.1 F 140 H 16 102/66 90 L 10/26/18 07:00 10/26/18 08:47 10/26/18 07:46 10/26/18 07:00 10/26/18 07:00 Intake & Output 10/25/18 10/26/18 10/27/18 06:59 06:59 06:59 Intake Total 1000 4383 Output Total 650 Balance 1000 3733 Weight 90.9 kg 97 kg General appearance: PRESENT: mild distress Head exam: PRESENT: atraumatic Mouth exam: PRESENT: dry mucosa Respiratory exam: PRESENT: clear to auscultation merissa. ABSENT: rales, rhonchi, wheezes Cardiovascular exam: PRESENT: tachycardia GI/Abdominal exam: PRESENT: normal bowel sounds, soft, other - Drain site with some redness, abdomen not overtly distended. ABSENT: distended, guarding, mass, organolmegaly, rebound, tenderness Rectal exam: PRESENT: deferred Neurological exam: PRESENT: altered Results Laboratory Results: 10/26/18 06:53 10/26/18 06:53 10/25/18 10/26/1810/26/19 16:05 06:53 06:53 WBC 21.1 H RBC 4.48 Hgb 12.6 L Hct 40.2 MCV 90 MCH 28.2 MCHC 31.5 L RDW 15.0 H Plt Count 643 H Seg Neutrophils % Not Reportable Lymphocytes % Not Reportable Monocytes % Not Reportable Eosinophils % Not Reportable Basophils % Not Reportable Absolute Neutrophils Not Reportable Absolute Lymphocytes Not Reportable Absolute Monocytes Not Reportable Absolute Eosinophils Not Reportable Absolute Basophils Not Reportable Sodium 136.5 L Potassium 6.2 H* Chloride 97 L Carbon Dioxide 24 Anion Gap 16 BUN 32 H Creatinine 2.15 H Est GFR ( Amer) 38 L Est GFR (Non-Af Amer) 32 L Glucose 108 Calcium 7.9 L Magnesium 2.2 Total Bilirubin 0.6 AST 387 H ALT 21 Alkaline Phosphatase 132 H Total Protein 5.5 L Albumin 3.1 L Lipase 323.3 H Urine Color YELLOW Urine Appearance CLOUDY Urine pH 5.0 Ur Specific [place] 1.020 Urine Protein 30 H Urine Glucose (UA) 50 H Urine Ketones TRACE H Urine Blood NEGATIVE Urine Nitrite NEGATIVE Ur Leukocyte Esterase NEGATIVE Urine WBC (Auto) 4 Urine RBC (Auto) 0 Impressions: Abdomen/Pelvis CT 10/25/18 00:00 IMPRESSION: Decrease in left upper quadrant fluid collection which communicates with the known gastric leak. Slight decrease in fluid collection adjacent to the pancreatic tail sutures. Slight increase in ascites. No bowel obstruction. 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 Plan to give aggressive hydration over the weekend, and probably initiate CHOP chemotherapy by Sunday or Sunday. Ultimately he will need to initiate it most likely in the hospital. I had a long discussion with the family as well as Dr. Rodriguez, spent about 80 minutes in discussion and coordination of care today. - Time Time Spent: Greater than 70 Minutes - Inpatient Certification Based on my medical assessment, after consideration of the patient's comorbidities, presenting symptoms, or acuity I expect that the services needed warrant INPATIENT care.: Yes I certify that my determination is in accordance with my understanding of Medicare's requirements for reasonable and necessary INPATIENT services [42 CFR 412.3e].: Yes Medical Necessity: Need For IV Fluids, Need For Continuous Telemetry Monitoring, Need for Neurological Checks, Need for IV Antibiotics, Risk of Complication if Not Cared For in Hospital
--- NOTE | 2018-10-26 14:06 | PDOC PROGRESS REPORT ---
Subjective Progress Note for:: 10/26/18 Subjective:: Patient is new to me. I am covering for Dr. Reich. This is 58 year old male patient admitted for acute abdominal pain. 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 His morning labs shows severe hyperkalemia with potassium of 6.2 for which he was given a cocktail of calcium gluconate, Kayexalate, insulin and dextrose. I will check his BMP after 4 hours. Patient has also acute kidney injury with creatinine of 2.15 and he has been on normal saline at a rate of 125 mm/h and I increased his rate 150 mm/h. Reason For Visit: LYMPHOMA Physical Exam Vital Signs: Temp Pulse Resp BP Pulse Ox 100.3 F 147 H 18 103/62 90 L 10/26/18 12:00 10/26/18 12:00 10/26/18 12:00 10/26/18 12:00 10/26/18 12:00 Intake & Output 10/25/18 10/26/18 10/27/18 06:59 06:59 06:59 Intake Total 1000 4383 1075 Output Total 650 Balance 1000 3733 1075 Weight 90.9 kg 97 kg General appearance: PRESENT: mild distress Head exam: PRESENT: atraumatic Eye exam: PRESENT: conjunctiva pink Mouth exam: PRESENT: moist Neck exam: ABSENT: carotid bruit, JVD, lymphadenopathy, thyromegaly Cardiovascular exam: PRESENT: RRR. ABSENT: diastolic murmur, rubs, systolic murmur GI/Abdominal exam: PRESENT: hypoactive bowel sounds, soft. ABSENT: distended, guarding, mass, organolmegaly, rebound, tenderness Neurological exam: PRESENT: alert, awake Results Laboratory Results: 10/26/18 06:53 10/26/18 06:53 10/25/18 10/26/18 10/26/18 16:05 06:53 06:53 WBC 21.1 H RBC 4.48 Hgb 12.6 L Hct 40.2 MCV 90 MCH 28.2 MCHC 31.5 L RDW 15.0 H Plt Count 643 H Seg Neutrophils % Not Reportable Lymphocytes % Not Reportable Monocytes % Not Reportable Eosinophils % Not Reportable Basophils % Not Reportable Absolute Neutrophils Not Reportable Absolute Lymphocytes Not Reportable Absolute Monocytes Not Reportable Absolute Eosinophils Not Reportable Absolute Basophils Not Reportable Sodium 136.5 L Potassium 6.2 H* Chloride 97 L Carbon Dioxide 24 Anion Gap 16 BUN 32 H Creatinine 2.15 H Est GFR ( Amer) 38 L Est GFR (Non-Af Amer) 32 L Glucose 108 Calcium 7.9 L Magnesium 2.2 Total Bilirubin 0.6 AST 387 H ALT 21 Alkaline Phosphatase 132 H Total Protein 5.5 L Albumin 3.1 L Lipase 323.3 H Urine Color YELLOW Urine Appearance CLOUDY Urine pH 5.0 Ur Specific [place] 1.020 Urine Protein 30 H Urine Glucose (UA) 50 H Urine Ketones TRACE H Urine Blood NEGATIVE Urine Nitrite NEGATIVE Ur Leukocyte Esterase NEGATIVE Urine WBC (Auto) 4 Urine RBC (Auto) 0 Impressions: Abdomen/Pelvis CT 10/25/18 00:00 IMPRESSION: Decrease in left upper quadrant fluid collection which communicates with the known gastric leak. Slight decrease in fluid collection adjacent to the pancreatic tail sutures. Slight increase in ascites. No bowel obstruction. Chest X-Ray 10/25/18 05:04 IMPRESSION: No acute cardiopulmonary abnormality copyright 2011 [employer]- All Rights Reserved Assessment & Plan - Diagnosis (1) Hyperkalemia Is this a current diagnosis for this admission?: Yes Plan: No EKG changes. Patient has been given calcium gluconate, Kayexalate, insulin and dextrose. BMP in a.m. (2) Acute kidney injury Is this a current diagnosis for this admission?: Yes Plan: We will hydrate him aggressively. Avoid nephrotoxic agents. Renal function test in a.m. (3) Acute abdominal pain Is this a current diagnosis for this admission?: Yes Plan: Patient is being followed up by Dr. Solis (4) Leukocytosis Is this a current diagnosis for this admission?: Yes Plan: Etiology is unclear. Oncologist Dr. Cota is consulted. 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 Since patient is prone to infection due to L organisms like strep pneumonia haemophilus influenzae and Neisseria meningitidis, he needs vaccine for all this. Patient will get Prevnar. (6) Type 2 diabetes mellitus Is this a current diagnosis for this admission?: Yes Plan: Continue current regimen (7) Hypertension Is this a current diagnosis for this admission?: Yes Plan: Continue home medications.
[2018-10-26 17:11] LABS: ANION GAP 18 (5-19); BLOOD UREA NITROGEN 43 mg/dL (7-20); CALCIUM 7.1 mg/dL (8.4-10.2); CARBON DIOXIDE 19 mmol/L (22-30); CHLORIDE 99 mmol/L (98-107); GLUCOSE 168 mg/dL (75-110); SODIUM 135.9 mmol/L (137-145)
[2018-10-26 17:24] LABS: POTASSIUM 6.8 mmol/L (3.6-5.0)
[2018-10-26] MEDS ORDERED: SODIUM BICARBONATE 8.4% INJ 50 MEQ/50 ML DISP.SYRIN IV ONE (17:29)
[2018-10-26] MEDS ORDERED: ALBUTEROL SULFATE 0.083% NEB 2.5 MG/3 ML AMPUL NEB ONE ×2 (17:30→17:37)
[2018-10-26] MEDS ORDERED: INSULIN REG, HUMAN 100 UNIT/ML 3 ML VIAL (PYX) IV ONE (17:45)
[2018-10-26] MEDS ORDERED: DEXTROSE 50%-WATER 25 GM/50 ML DISP.SYRIN IV ONE (17:45)
[2018-10-26] MEDS ORDERED: VANCOMYCIN HCL 1,500 MG in DEXTROSE 5%-WATER 250 ML IV SCH (18:00)
[2018-10-26] MEDS ORDERED: SODIUM POLYSTYRENE SULFONATE 15 GM/60 ML ONE (18:03)
[2018-10-26 21:45] LABS: BLOOD UREA NITROGEN 50 mg/dL (7-20); CALCIUM 7.1 mg/dL (8.4-10.2); CARBON DIOXIDE 16 mmol/L (22-30); CHLORIDE 98 mmol/L (98-107); GLUCOSE 254 mg/dL (75-110); SODIUM 134.6 mmol/L (137-145)
[2018-10-26 21:53] LABS: ANION GAP 21 (5-19)
[2018-10-26 21:58] LABS: POTASSIUM 6.1 mmol/L (3.6-5.0)
[2018-10-26] MEDS ORDERED: LACTULOSE SYRUP 20 GM/30 ML UDCUP PO ONE (22:06)
[2018-10-26] MEDS: ONDANSETRON HCL INJ/PF 4 MG/2 ML SDV IV PRN (22:38)
[2018-10-27] MEDS: PIPERACILLIN SODIUM/TAZOBACTAM 3.375 GM in NORMAL SALINE 100 ML IV SCH ×4 (02:20→21:29)
[2018-10-27] MEDS: NORMAL SALINE 1000 ML 1,000 ML IV PRN ×2 (02:23→23:18)
[2018-10-27] MEDS: HEPARIN SOD (PORCINE) 5,000 UNIT/ML 1 ML SYRINGE SUBCUT SCH ×3 (06:17→21:29)
[2018-10-27] MEDS: INSULIN LISPRO 100 UNIT/ML 3 ML VIAL SUBCUT SCH ×3 (06:18→17:26)
--- NOTE | 2018-10-27 07:36 | PDOC PROGRESS REPORT ---
Subjective Progress Note for:: 10/27/18 Subjective:: Patient much more alert and oriented this morning, looks better, very poor urine output yesterday Reason For Visit: LYMPHOMA,HYPERKALEMIA Physical Exam Vital Signs: Temp Pulse Resp BP Pulse Ox 97.7 F 120 H 18 131/73 H 93 10/27/18 04:22 10/27/18 04:22 10/27/18 04:22 10/27/18 04:22 10/27/18 04:22 Intake & Output 10/26/18 10/27/18 10/28/18 06:59 06:59 06:59 Intake Total 4383 2728 Output Total 650 85 Balance 3733 2643 Weight 97 kg 98.4 kg General appearance: PRESENT: no acute distress Mouth exam: PRESENT: dry mucosa Respiratory exam: PRESENT: clear to auscultation merissa. ABSENT: rales, rhonchi, wheezes Cardiovascular exam: PRESENT: tachycardia. ABSENT: diastolic murmur, rubs GI/Abdominal exam: PRESENT: other - Redness slightly around the drain site, drain site bandaged, but abdomen is soft, does not appear to be too distended Rectal exam: PRESENT: deferred Neurological exam: PRESENT: alert, awake, oriented to person, oriented to place, oriented to time, oriented to situation Results Laboratory Results: 10/26/18 06:53 10/26/18 21:00 10/26/18 10/26/18 10/26/18 06:53 06:53 16:38 WBC 21.1 H RBC 4.48 Hgb 12.6 L Hct 40.2 MCV 90 MCH 28.2 MCHC 31.5 L RDW 15.0 H Plt Count 643 H Seg Neutrophils % Not Reportable Lymphocytes % Not Reportable Monocytes % Not Reportable Eosinophils % Not Reportable Basophils % Not Reportable Absolute Neutrophils Not Reportable Absolute Lymphocytes Not Reportable Absolute Monocytes Not Reportable Absolute Eosinophils Not Reportable Absolute Basophils Not Reportable Sodium 136.5 L 135.9 L Potassium 6.2 H* 6.8 H* Chloride 97 L 99 Carbon Dioxide 24 19 L Anion Gap 16 18 BUN 32 H 43 H Creatinine 2.15 H 2.99 H Est GFR ( Amer) 38 L 26 L Est GFR (Non-Af Amer) 32 L 22 L Glucose 108 168 H Calcium 7.9 L 7.1 L Magnesium 2.2 Total Bilirubin 0.6 AST 387 H ALT 21 Alkaline Phosphatase 132 H Total Protein 5.5 L Albumin 3.1 L Lipase 323.3 H 10/26/18 21:00 WBC RBC Hgb Hct MCV MCH MCHC RDW Plt Count Seg Neutrophils % Lymphocytes % Monocytes % Eosinophils % Basophils % Absolute Neutrophils Absolute Lymphocytes Absolute Monocytes Absolute Eosinophils Absolute Basophils Sodium 134.6 L Potassium 6.1 H* Chloride 98 Carbon Dioxide 16 L Anion Gap 21 H BUN 50 H Creatinine 3.17 H Est GFR ( Amer) 25 L Est GFR (Non-Af Amer) 20 L Glucose 254 H Calcium 7.1 L Magnesium Total Bilirubin AST ALT Alkaline Phosphatase Total Protein Albumin Lipase Impressions: Abdomen/Pelvis CT 10/25/18 00:00 IMPRESSION: Decrease in left upper quadrant fluid collection which communicates with the known gastric leak. Slight decrease in fluid collection adjacent to the pancreatic tail sutures. Slight increase in ascites. No bowel obstruction. 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 Family would like me to take over his care from Dr. Giron, I will discuss with her today about this. (2) Acute kidney injury Is this a current diagnosis for this admission?: Yes Plan: We will need to continue aggressive hydration, I will discontinue the vancomycin, I ordered Ashraf catheter placement for close I's and O's monitoring. I will discuss his case with Dr. Dick Granados of nephrology today, he will be starting consultation starting Sunday, so he will see him on Sunday. (3) Hyperkalemia Is this a current diagnosis for this admission?: Yes Plan: Secondary to poor kidney function, continue per hospitalist team (4) Acute abdominal pain Is this a current diagnosis for this admission?: Yes Plan: Secondary to postsurgical as well as cancer-induced pain, very low-dose Dilaudid on board now because he became very confused with higher dose Dilaudid. He may need to give him more as he becomes more oriented (5) Abdominal infection Is this a current diagnosis for this admission?: Yes Plan: I will discontinue vancomycin as his vanc trough was 28, he should have vancomycin keeping steady levels because of his kidney function for the next 1-2 days, continue with Zosyn. Part of his white count will probably be prednisone effect because he did receive 1-2 days of prednisone 100 mg daily. But he certainly is a set up for infection in the abdomen. - Time Time Spent with patient: 35 or more minutes Disposition: Will follow, I will not be here tomorrow to see him, I told the family that, I will see him next on Sunday - Inpatient Certification Based on my medical assessment, after consideration of the patient's comorbidities, presenting symptoms, or acuity I expect that the services needed warrant INPATIENT care.: Yes I certify that my determination is in accordance with my understanding of Medicare's requirements for reasonable and necessary INPATIENT services [42 CFR 412.3e].: Yes Medical Necessity: Need For IV Fluids, Need For Continuous Telemetry Monitoring, Need for Neurological Checks, Need for Pain Control, Need for IV Antibiotics, Risk of Complication if Not Cared For in Hospital
[2018-10-27 08:51] LABS: HEMATOCRIT 32.9 % (37.9-51.0); MEAN CORPUSCULAR HEMOGLOBIN 28.5 pg (27.0-33.4); MEAN CORPUSCULAR HGB CONC 31.6 g/dL (32.0-36.0); MEAN CORPUSCULAR VOLUME 90 fl (80-97); PLATELET COUNT 488 10^3/uL (150-450); RED BLOOD COUNT 3.65 10^6/uL (4.35-5.55); RED CELL DISTRIBUTION WIDTH 14.9 % (11.5-14.0); WHITE BLOOD COUNT 23.5 10^3/uL (4.0-10.5)
[2018-10-27 09:07] LABS: BLOOD UREA NITROGEN 60 mg/dL (7-20); CARBON DIOXIDE 19 mmol/L (22-30); CHLORIDE 99 mmol/L (98-107); GLUCOSE 263 mg/dL (75-110); POTASSIUM 5.7 mmol/L (3.6-5.0); SODIUM 137.5 mmol/L (137-145)
[2018-10-27 09:12] LABS: HEMOGLOBIN 10.4 g/dL (13.5-17.0)
[2018-10-27] MEDS ORDERED: NORMAL SALINE 1000 ML 2,000 ML IV PRN (09:12)
[2018-10-27 09:15] LABS: ABSOLUTE LYMPHOCYTES# (MANUAL) 0.9 10^3/uL (0.5-4.7); ABSOLUTE MONOCYTES # (MANUAL) 0.5 10^3/uL (0.1-1.4); ABSOLUTE NEUTROPHILS# (MANUAL) 22.1 10^3/uL (1.7-8.2); BASOPHILS % (MANUAL) 0 % (0-2); EOSINOPHILS % (MANUAL) 0 % (0-6); LYMPHOCYTES % (MANUAL) 4 % (13-45); MONOCYTES % (MANUAL) 2 % (3-13); SEGMENTED NEUTROPHILS % (MAN) 94 % (42-78); TOTAL CELLS COUNTED 100
[2018-10-27] MEDS ORDERED: CALCIUM GLUCONATE 1000 MG/10 ML INJ IV ONE (09:15)
[2018-10-27] MEDS ORDERED: SODIUM BICARBONATE 8.4% INJ 50 MEQ/50 ML DISP.SYRIN IV ONE (09:15)
[2018-10-27] MEDS ORDERED: ALBUTEROL SULFATE 0.083% NEB 2.5 MG/3 ML AMPUL NEB ONE ×2 (09:15→10:02)
[2018-10-27] MEDS ORDERED: INSULIN REG, HUMAN 100 UNIT/ML 3 ML VIAL (PYX) IV ONE (09:15)
[2018-10-27] MEDS ORDERED: DEXTROSE 50%-WATER 25 GM/50 ML DISP.SYRIN IV ONE (09:15)
[2018-10-27 09:16] LABS: ANISOCYTOSIS SLIGHT; BURR CELLS 1+; POIKILOCYTOSIS 1+
[2018-10-27 09:17] LABS: PLATELET COMMENT ADEQUATE; PLATELET LARGE PRESENT
--- NOTE | 2018-10-27 09:20 | PDOC PROGRESS REPORT ---
Subjective Progress Note for:: 10/27/18 Reason For Visit: LYMPHOMA,HYPERKALEMIA Physical Exam Vital Signs: Temp Pulse Resp BP Pulse Ox 97.9 F 112 H 19 127/77 H 93 10/27/18 07:57 10/27/18 07:57 10/27/18 07:57 10/27/18 07:57 10/27/18 07:57 Intake & Output 10/26/18 10/27/18 10/28/18 06:59 06:59 06:59 Intake Total 4383 2728 Output Total 650 85 Balance 3733 2643 Weight 97 kg 98.4 kg General appearance: PRESENT: mild distress Mouth exam: PRESENT: dry mucosa - still iwthh very dry mucosa difficulty speaking Respiratory exam: PRESENT: clear to auscultation merissa GI/Abdominal exam: PRESENT: soft - rik with drainage, still mucopurulent, Results Laboratory Results: 10/26/18 10/26/18 10/27/18 16:38 21:00 07:48 Seg Neutrophils % Not Reportable Lymphocytes % Not Reportable Monocytes % Not Reportable Eosinophils % Not Reportable Basophils % Not Reportable Absolute Neutrophils Not Reportable Absolute Lymphocytes Not Reportable Absolute Monocytes Not Reportable Absolute Eosinophils Not Reportable Absolute Basophils Not Reportable Sodium 135.9 L 134.6 L Potassium 6.8 H* 6.1 H* Chloride 99 98 Carbon Dioxide 19 L 16 L Anion Gap 18 21 H BUN 43 H 50 H Creatinine 2.99 H 3.17 H Est GFR ( Amer) 26 L 25 L Est GFR (Non-Af Amer) 22 L 20 L Glucose 168 H 254 H Calcium 7.1 L 7.1 L Impressions: Abdomen/Pelvis CT 10/25/18 00:00 IMPRESSION: Decrease in left upper quadrant fluid collection which communicates with the known gastric leak. Slight decrease in fluid collection adjacent to the pancreatic tail sutures. Slight increase in ascites. No bowel obstruction. Chest X-Ray 10/25/18 05:04 IMPRESSION: No acute cardiopulmonary abnormality copyright 2011 [employer]- All Rights Reserved Assessment & Plan - Plan Summary Plan Summary: appears more alert this am am labs still pending creat last pm up to 3.1 k+6.1 did respond to kayexalate enema discussed with Dr bush and kirstie. will give additional [address] German is on today and will check labs nephrology to see in am
[2018-10-27 09:29] LABS: ANION GAP 20 (5-19)
[2018-10-27 09:30] LABS: CALCIUM 6.8 mg/dL (8.4-10.2)
[2018-10-27] MEDS ORDERED: SODIUM POLYSTYRENE SULFONATE 15 GM/60 ML PO ONE ×2 (09:30→14:30)
[2018-10-27] MEDS: PANTOPRAZOLE SODIUM 40 MG VIAL IV SCH (10:07)
--- NOTE | 2018-10-27 11:09 | PDOC PROGRESS REPORT ---
Subjective Subjective:: Patient is new to me. I am covering for Dr. Reich. This is 58 year old male patient admitted for acute abdominal pain. 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 His morning labs shows severe hyperkalemia with potassium of 6.2 for which he was given a cocktail of calcium gluconate, Kayexalate, insulin and dextrose. The repeat BMP came back with a potassium of 6.8 and worsening kidney function. Patient given another round of cocktails of calcium gluconate Kayexalate insulin, dextrose and sodium bicarbonate albuterol neb. His latest potassium is 5.7 but his calcium dropped to 6.8. We will give him calcium gluconate. He has been also hydrated aggressively. Consulted manager of it Dr. Granados for his input. Reason For Visit: LYMPHOMA,HYPERKALEMIA Physical Exam Vital Signs: Temp Pulse Resp BP Pulse Ox 97.9 F 108 H 18 127/77 H 95 10/27/18 07:57 10/27/18 10:00 10/27/18 10:00 10/27/18 07:57 10/27/18 10:00 Intake & Output 10/26/18 10/27/18 10/28/18 06:59 06:59 06:59 Intake Total 4383 2728 985 Output Total 650 85 Balance 3733 2643 985 Weight 97 kg 98.4 kg General appearance: PRESENT: mild distress Head exam: PRESENT: atraumatic Eye exam: PRESENT: conjunctiva pink Mouth exam: PRESENT: moist Neck exam: ABSENT: carotid bruit, JVD, lymphadenopathy, thyromegaly Respiratory exam: PRESENT: decreased breath sounds - Bilateral. ABSENT: rales, rhonchi, wheezes Cardiovascular exam: PRESENT: RRR. ABSENT: diastolic murmur, rubs, systolic murmur GI/Abdominal exam: PRESENT: ascites, distended, normal bowel sounds, soft. ABSENT: mass, organolmegaly, rebound, tenderness Neurological exam: PRESENT: alert, awake, oriented to time, oriented to situation Results Laboratory Results: 10/27/18 07:48 10/27/18 07:48 10/26/18 10/26/18 10/27/18 16:38 21:00 07:48 WBC 23.5 H RBC 3.65 L Hgb 10.4 L D Hct 32.9 L MCV 90 MCH 28.5 MCHC 31.6 L RDW 14.9 H Plt Count 488 H Seg Neutrophils % Not Reportable Lymphocytes % Not Reportable Monocytes % Not Reportable Eosinophils % Not Reportable Basophils % Not Reportable Absolute Neutrophils Not Reportable Absolute Lymphocytes Not Reportable Absolute Monocytes Not Reportable Absolute Eosinophils Not Reportable Absolute Basophils Not Reportable Sodium 135.9 L 134.6 L Potassium 6.8 H* 6.1 H* Chloride 99 98 Carbon Dioxide 19 L 16 L Anion Gap 18 21 H BUN 43 H 50 H Creatinine 2.99 H 3.17 H Est GFR ( Amer) 26 L 25 L Est GFR (Non-Af Amer) 22 L 20 L Glucose 168 H 254 H Calcium 7.1 L 7.1 L 10/27/18 07:48 WBC RBC Hgb Hct MCV MCH MCHC RDW Plt Count Seg Neutrophils % Lymphocytes % Monocytes % Eosinophils % Basophils % Absolute Neutrophils Absolute Lymphocytes Absolute Monocytes Absolute Eosinophils Absolute Basophils Sodium 137.5 Potassium 5.7 H Chloride 99 Carbon Dioxide 19 L Anion Gap 20 H BUN 60 H Creatinine 3.91 H Est GFR ( Amer) 19 L Est GFR (Non-Af Amer) 16 L Glucose 263 H Calcium 6.8 L* Impressions: Abdomen/Pelvis CT 10/25/18 00:00 IMPRESSION: Decrease in left upper quadrant fluid collection which communicates with the known gastric leak. Slight decrease in fluid collection adjacent to the pancreatic tail sutures. Slight increase in ascites. No bowel obstruction. Chest X-Ray 10/25/18 05:04 IMPRESSION: No acute cardiopulmonary abnormality copyright 2011 [employer]- All Rights Reserved Assessment & Plan - Diagnosis (1) Hyperkalemia Is this a current diagnosis for this admission?: Yes Plan: It is trending down 6.2-6.8-6.1-5.7 (2) Acute kidney injury Is this a current diagnosis for this admission?: Yes Plan: It is worsening. Patient might have tumor lysis syndrome which could explain his hyperkalemia and acute kidney injury. Weighbridge Operator consulted. (3) Acute abdominal pain Is this a current diagnosis for this admission?: Yes Plan: Stable (4) Leukocytosis Is this a current diagnosis for this admission?: Yes Plan: Is trending up. Patient is afebrile. He has been getting Diflucan and Zosyn. 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 Since patient is prone to infection due to L organisms like strep pneumonia haemophilus influenzae and Neisseria meningitidis, he needs vaccine for all this. Patient will get Prevnar. (6) Type 2 diabetes mellitus Is this a current diagnosis for this admission?: Yes Plan: Continue current regimen (7) Hypertension Is this a current diagnosis for this admission?: Yes Plan: Continue home medications.
[2018-10-27] MEDS: FLUCONAZOLE 200 MG/NS RTU 200 MG/100 ML RTUPB IV SCH (11:44)
[2018-10-27] MEDS ORDERED: NORMAL SALINE 1000 ML 1,000 ML IV ONE ×2 (13:15→14:00)
[2018-10-27 16:55] LABS: ANION GAP 16 (5-19); BLOOD UREA NITROGEN 62 mg/dL (7-20); CARBON DIOXIDE 22 mmol/L (22-30); CHLORIDE 101 mmol/L (98-107); GLUCOSE 199 mg/dL (75-110); POTASSIUM 4.8 mmol/L (3.6-5.0)
[2018-10-27 17:04] LABS: CALCIUM 6.2 mg/dL (8.4-10.2)
[2018-10-28] MEDS: INSULIN LISPRO 100 UNIT/ML 3 ML VIAL SUBCUT SCH ×3 (00:27→13:37)
[2018-10-28 03:14] LABS: ARTERIAL BLOOD BASE EXCESS -7.7 mmol/L; ARTERIAL BLOOD H2CO3 1.19 mmol/L (1.05-1.35); ARTERIAL BLOOD HCO3 18.4 mmol/L (20-24); ARTERIAL BLOOD O2 SATURATION 98.9 % (94-98); ARTERIAL BLOOD PCO2 39.5 mmHg (35-45); ARTERIAL BLOOD PH 7.29 (7.35-7.45); ARTERIAL BLOOD PO2 164.1 mmHg (80-100); ARTERIAL BLOOD TOTAL CO2 19.6 mmol/L (23-27)
[2018-10-28 03:15] LABS: ARTERIAL BLOOD FIO2 15L
[2018-10-28 03:17] LABS: HEMATOCRIT 32.1 % (37.9-51.0); HEMOGLOBIN 10.1 g/dL (13.5-17.0); MEAN CORPUSCULAR HEMOGLOBIN 28.1 pg (27.0-33.4); MEAN CORPUSCULAR HGB CONC 31.4 g/dL (32.0-36.0); MEAN CORPUSCULAR VOLUME 89 fl (80-97); PLATELET COUNT 466 10^3/uL (150-450); RED CELL DISTRIBUTION WIDTH 15.4 % (11.5-14.0); WHITE BLOOD COUNT 20.1 10^3/uL (4.0-10.5)
[2018-10-28] MEDS ORDERED: CALCIUM GLUCONATE 1,000 MG in DEXTROSE 5%-WATER 50 ML IV ONE (03:26)
[2018-10-28] MEDS ORDERED: CALCIUM GLUCONATE 1000 MG/10 ML INJ IV PRN (03:31)
--- NOTE | 2018-10-28 03:32 | RADIOLOGY REPORT (SQ) ---
CLINICAL HISTORY: sob COMPARISON: October 25, 2018. 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 There is left basilar airspace disease. There is a large left pleural effusion. There is no pneumothorax. There are no acute osseous findings. Left chest port catheter tip is in the upper SVC. IMPRESSION: Interval development of left basilar pneumonia with an associated pleural effusion.
[2018-10-28 03:33] LABS: ALANINE AMINOTRANSFERASE 15 U/L (21-72); ALBUMIN 2.5 g/dL (3.5-5.0); ALKALINE PHOSPHATASE 119 U/L (38-126); ANION GAP 16 (5-19); ASPARTATE AMINO TRANSFERASE 233 U/L (17-59); BILIRUBIN,DIRECT 0.5 mg/dL (0.0-0.4); BILIRUBIN,TOTAL 0.5 mg/dL (0.2-1.3); BLOOD UREA NITROGEN 65 mg/dL (7-20); CARBON DIOXIDE 20 mmol/L (22-30); CHLORIDE 105 mmol/L (98-107); CREATINE KINASE 104 U/L (55-170); GLUCOSE 143 mg/dL (75-110); POTASSIUM 4.5 mmol/L (3.6-5.0); SODIUM 141.3 mmol/L (137-145); TOTAL PROTEIN 4.8 g/dL (6.3-8.2)
[2018-10-28 03:38] LABS: ABSOLUTE LYMPHOCYTES# (MANUAL) 0.6 10^3/uL (0.5-4.7); ABSOLUTE MONOCYTES # (MANUAL) 0.4 10^3/uL (0.1-1.4); ABSOLUTE NEUTROPHILS# (MANUAL) 19.1 10^3/uL (1.7-8.2); BASOPHILS % (MANUAL) 0 % (0-2); EOSINOPHILS % (MANUAL) 0 % (0-6); LYMPHOCYTES % (MANUAL) 3 % (13-45); MONOCYTES % (MANUAL) 2 % (3-13); SEGMENTED NEUTROPHILS % (MAN) 95 % (42-78); TOTAL CELLS COUNTED 100; TROPONIN I 0.013 ng/mL
[2018-10-28 03:44] LABS: CALCIUM 5.9 mg/dL (8.4-10.2)
[2018-10-28 03:45] LABS: ANISOCYTOSIS SLIGHT; OVALOCYTES 1+; PLATELET COMMENT ADEQUATE; POIKILOCYTOSIS 1+; TEAR DROP CELLS SLIGHT; TOXIC GRANULATION 1+; TOXIC VACUOLATION PRESENT
[2018-10-28] MEDS ORDERED: VANCOMYCIN HCL 0 MG in DEXTROSE 5%-WATER 250 ML IV NR (03:45)
[2018-10-28] MEDS ORDERED: VANCOMYCIN HCL 1,000 MG in DEXTROSE 5%-WATER 250 ML IV ONE (03:45)
[2018-10-28] MEDS ORDERED: CEFEPIME 1 GM/D5W RTU 1 GM/50 ML RTUPB IV SCH (04:00)
[2018-10-28] MEDS ORDERED: CEFEPIME 1 GM/D5W RTU 1 GM/50 ML RTUPB IV ONE (04:15)
--- NOTE | 2018-10-28 04:42 | RADIOLOGY REPORT (SQ) ---
EXAM DESCRIPTION: CT ABDOMEN PELVIS WITHOUT IV CONTRAST, CT CHEST WITHOUT IV CONTRAST COMPLETED DATE/TME: 10/28/2018 00:00 CLINICAL HISTORY: 58 years, Male, swelling / pain COMPARISON: 10/25/2018 TECHNIQUE: Axial CT images of the chest, abdomen, and pelvis were obtained without contrast. Sagittal and coronal reformats were performed. [facility] Images stored on PACS. All CT scanners at this facility use dose modulation, iterative reconstruction, and/or weight based dosing when appropriate to reduce radiation dose to as low as reasonably achievable (ALARA). [facility]: Dose Right [facility]: CareDose [facility]: Dose Right [facility]: Teradose 4D [facility]: [employer] LIMITATIONS: None. FINDINGS: --Chest-- Thoracic aorta: Unremarkable. Heart: Unremarkable. There are atherosclerotic calcifications of the coronary arteries. Mediastinum: No pathologic sized middle mediastinal lymphadenopathy. A left chest wall port terminates within the SVC Tracheobronchial tree: Unremarkable. Lungs: Lobar consolidation: There is atelectasis of the left lower lobe. There is interstitial thickening with some scattered groundglass opacities. Pleural effusion: Development of a small right and enlarging large left. Pneumothorax: Negative. Other: Negative. Bones: Unremarkable. --Abdomen-- Solid abdominal viscera: Liver: Unremarkable. Gallbladder: Distended Pancreas: Postsurgical changes near the tail with an adjacent 6.7 x 4.1 cm fluid collection, similar to the prior. Spleen: Not well seen Adrenal glands: Unremarkable. Right kidney: No hydronephrosis. Left kidney: No hydronephrosis. Urinary bladder: Decompressed by Ashraf catheter Abdominal aorta: Atherosclerotic calcifications Peritoneal: Free fluid: Large amount Free air: None. Other: No pathologic sized lymph nodes in the upper abdomen. Again noted is a drainage catheter along the anterior aspect of the left upper quadrant. There is a small amount of contrast adjacent to the catheter which appears separate from the majority of the contrast in the left upper quadrant (sagittal image 92). The bulk of the contrast is in the posterior aspect of the left upper quadrant and measures 7.6 x 1.5 cm, which appears slightly decreased in size compared. There is less contrast noted anteriorly. Bowel: Stomach: Incompletely distended Small bowel: Unremarkable. Appendix: Not uniquely identified Colon: Unremarkable. Rectum: Unremarkable. Prostate: Unremarkable. Bones: Unremarkable. IMPRESSION: Decrease in size of the oral contrast collection along the left upper quadrant related to the known gastric leak. The drainage catheter in the aspect of the left upper quadrant has a small pocket of oral contrast adjacent to it with the bulk of the contrast collection noted more posteriorly and separate from the smaller anterior collection. Grossly stable peripancreatic fluid collection. Enlarging left pleural effusion which is now large. Development of a small left pleural effusion. Persistent large amount of ascites. Interstitial thickening with scattered groundglass opacities within the lungs. TECHNICAL DOCUMENTATION: Quality ID # 436: Final reports with documentation of one or more dose reduction techniques (e.g., Automated exposure control, adjustment of the mA and/or kV according to patient size, use of iterative reconstruction technique) copyright 2010 [employer]- All Rights Reserved
[2018-10-28] MEDS ORDERED: MORPHINE SULFATE 10 MG/ML INJ ONE (05:24)
[2018-10-28] MEDS: MORPHINE SULFATE 10 MG/ML INJ IV PRN ×3 (05:25→22:08)
--- NOTE | 2018-10-28 05:51 | Progress Note ---
Provider Note Provider Note: contacted by patient's nurse during an INSURANCE LEGAL ASSISTANT for shortness of breath. Patient's found hypoxic and placed on a nonrebreather exam reveals dullness to percussion of the left lung, chest x-ray reveals large left-sided effusion with associated pneumonia. Labs reveal hypocalcemia. Assessment and plan Patient is transferred to the intensive care unit. Dr. Briggs covering surgicalist consulted for chest tube. Die Tripper unavailable. Calcium gluconate ordered IV with follow-up in a.m. chemistry. Vancomycin and cefepime ordered for healthcare associated pneumonia. BiPAP as needed follow-up ABG, CBC and blood culture.
[2018-10-28] MEDS: PIPERACILLIN SODIUM/TAZOBACTAM 3.375 GM in NORMAL SALINE 100 ML IV SCH ×2 (07:16→09:36)
[2018-10-28] MEDS ORDERED: CALCIUM GLUCONATE 1000 MG/10 ML INJ IV ONE ×2 (07:20→22:30)
[2018-10-28] MEDS: HEPARIN SOD (PORCINE) 5,000 UNIT/ML 1 ML SYRINGE SUBCUT SCH ×3 (07:32→22:00)
--- NOTE | 2018-10-28 07:33 | EKG REPORT ---
SEVERITY:- ABNORMAL ECG - SINUS TACHYCARDIA NONSPECIFIC T ABNORMALITIES ,INFERIOR AND LATERAL LEADS , UNCHANGED FROM LAST ekg : Confirmed by: Thom Alba MD 28-Oct-2018 07:33:02
--- NOTE | 2018-10-28 07:57 | PDOC PROGRESS REPORT ---
Subjective Progress Note for:: 10/28/18 Subjective:: Patient currently in ICU complaining of pain and difficulty breathing. Nurses report that he gets very confused with the pain medication. IV fluids were stopped. He has had very little urine output. Family is at bedside. ROS: Thirsty, abdominal pain, dyspnea. Reason For Visit: LYMPHOMA,HYPERKALEMIA Physical Exam Vital Signs: Temp Pulse Resp BP Pulse Ox 97.4 F 108 H 24 H 115/72 92 10/28/18 01:45 10/28/18 07:47 10/28/18 04:29 10/28/18 04:29 10/28/18 04:29 Intake & Output 10/27/18 10/28/18 10/29/18 06:59 06:59 06:59 Intake Total 2728 2397 Output Total 85 220 Balance 2643 2177 Weight 98.4 kg 97.2 kg Exam: Well nourished male with ascites. Head exam: PRESENT: normocephalic Respiratory exam: PRESENT: decreased breath sounds Cardiovascular exam: PRESENT: RRR GI/Abdominal exam: PRESENT: firm, tenderness, other - No bowel sounds. Extremities exam: PRESENT: +1 edema - TEDs in place. Neurological exam: PRESENT: awake. ABSENT: oriented to person, oriented to place, oriented to time, oriented to situation Psychiatric exam: ABSENT: agitated Skin exam: PRESENT: jaundice Results Laboratory Results: 10/28/18 03:05 10/28/18 03:05 10/27/18 10/27/18 10/27/18 07:48 07:48 16:15 WBC 23.5 H RBC 3.65 L Hgb 10.4 L D Hct 32.9 L MCV 90 MCH 28.5 MCHC 31.6 L RDW 14.9 H Plt Count 488 H Seg Neutrophils % Not Reportable Lymphocytes % Not Reportable Monocytes % Not Reportable Eosinophils % Not Reportable Basophils % Not Reportable Absolute Neutrophils Not Reportable Absolute Lymphocytes Not Reportable Absolute Monocytes Not Reportable Absolute Eosinophils Not Reportable Absolute Basophils Not Reportable Carbonic Acid HCO3/H2CO3 Ratio ABG pH ABG pCO2 ABG pO2 ABG HCO3 ABG O2 Saturation ABG Base Excess FiO2 Sodium 137.5 139.0 Potassium 5.7 H 4.8 Chloride 99 101 Carbon Dioxide 19 L 22 Anion Gap 20 H 16 BUN 60 H 62 H Creatinine 3.91 H 4.25 H Est GFR ( Amer) 19 L 17 L Est GFR (Non-Af Amer) 16 L 14 L Glucose 263 H 199 H Calcium 6.8 L* 6.2 L* Total Bilirubin AST ALT Alkaline Phosphatase Total Protein Albumin 10/28/18 10/28/18 10/28/18 03:05 03:05 03:09 WBC 20.1 H RBC 3.60 L Hgb 10.1 L Hct 32.1 L MCV 89 MCH 28.1 MCHC 31.4 L RDW 15.4 H Plt Count 466 H Seg Neutrophils % Not Reportable Lymphocytes % Not Reportable Monocytes % Not Reportable Eosinophils % Not Reportable Basophils % Not Reportable Absolute Neutrophils Not Reportable Absolute Lymphocytes Not Reportable Absolute Monocytes Not Reportable Absolute Eosinophils Not Reportable Absolute Basophils Not Reportable Carbonic Acid 1.19 HCO3/H2CO3 Ratio 15:1 ABG pH 7.29 L ABG pCO2 39.5 ABG pO2 164.1 H ABG HCO3 18.4 L ABG O2 Saturation 98.9 H ABG Base Excess -7.7 FiO2 15L Sodium 141.3 Potassium 4.5 Chloride 105 Carbon Dioxide 20 L Anion Gap 16 BUN 65 H Creatinine 4.43 H Est GFR ( Amer) 17 L Est GFR (Non-Af Amer) 14 L Glucose 143 H Calcium 5.9 L* Total Bilirubin 0.5 AST 233 H ALT 15 L Alkaline Phosphatase 119 Total Protein 4.8 L Albumin 2.5 L 10/28/18 10/28/18 03:05 03:05 Creatine Kinase 104 CK-MB (CK-2) 1.00 Troponin I 0.013 Impressions: Abdomen/Pelvis CT 10/28/18 00:00 IMPRESSION: Decrease in size of the oral contrast collection along the left upper quadrant related to the known gastric leak. The drainage catheter in the aspect of the left upper quadrant has a small pocket of oral contrast adjacent to it with the bulk of the contrast collection noted more posteriorly and separate from the smaller anterior collection. Grossly stable peripancreatic fluid collection. Enlarging left pleural effusion which is now large. Development of a small left pleural effusion. Persistent large amount of ascites. Interstitial thickening with scattered groundglass opacities within the lungs. TECHNICAL DOCUMENTATION: Quality ID # 436: Final reports with documentation of one or more dose reduction techniques (e.g., Automated exposure control, adjustment of the mA and/or kV according to patient size, use of iterative reconstruction technique) copyright 2010 [employer]- All Rights Reserved Chest CT 10/28/18 00:00 IMPRESSION: Decrease in size of the oral contrast collection along the left upper quadrant related to the known gastric leak. The drainage catheter in the aspect of the left upper quadrant has a small pocket of oral contrast adjacent to it with the bulk of the contrast collection noted more posteriorly and separate from the smaller anterior collection. Grossly stable peripancreatic fluid collection. Enlarging left pleural effusion which is now large. Development of a small left pleural effusion. Persistent large amount of ascites. Interstitial thickening with scattered groundglass opacities within the lungs. TECHNICAL DOCUMENTATION: Quality ID # 436: Final reports with documentation of one or more dose reduction techniques (e.g., Automated exposure control, adjustment of the mA and/or kV according to patient size, use of iterative reconstruction technique) copyright 2010 [employer]- All Rights Reserved Chest X-Ray 10/28/18 00:00 IMPRESSION: Interval development of left basilar pneumonia with an associated pleural effusion. 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 R-CHOP had been planned for last week. This was discussed with Dr. Solis. We discussed the fact that until the lymphoma is treated, he will continue to have further surgical and metabolic complications. I will try to give Rituxan today and CHOP in near future if remains stable enough. (2) Tumor lysis syndrome Is this a current diagnosis for this admission?: Yes Plan: With Hyperkalemia and acute renal failure. I will start allopurinol if possible and continue to support the electrolyte abnormalities. No current IV fluids, due to decreased renal output and increased pleural effusion. (3) Abdominal infection Is this a current diagnosis for this admission?: Yes Plan: He has an abscess forming. Antibiotics have been started. Furher plans for paracentesis and other draining procedures planned by Dr. Solis. (4) Acute kidney injury Is this a current diagnosis for this admission?: Yes Plan: Continue supportive care. Dose adjust all antibiotics and other medications for this. - Plan Summary Plan Summary: Continue pain medication. Overall prognosis is very poor. Family understands and all of their questions were answered.
--- NOTE | 2018-10-28 08:52 | PDOC PROGRESS REPORT ---
Subjective Progress Note for:: 10/28/18 Subjective:: The patient is in ICU presently. He was transferred during the night because of an acute respiratory failure. The chest x-ray and CT showed a large pleural effusion and probably a pneumonia which must be healthcare associated. Discussed with the pulmonary and nephrology for further recommendations Reason For Visit: LYMPHOMA,HYPERKALEMIA Physical Exam Vital Signs: Temp Pulse Resp BP Pulse Ox 97.4 F 108 H 24 H 115/72 92 10/28/18 01:45 10/28/18 07:47 10/28/18 04:29 10/28/18 04:29 10/28/18 04:29 Intake & Output 10/27/18 10/28/18 10/29/18 06:59 06:59 06:59 Intake Total 2728 2397 Output Total 85 220 Balance 2643 2177 Weight 98.4 kg 97.2 kg General appearance: PRESENT: severe distress Eye exam: PRESENT: conjunctival injection Neck exam: ABSENT: carotid bruit, JVD Respiratory exam: PRESENT: rales Cardiovascular exam: PRESENT: RRR, +S1, +S2 GI/Abdominal exam: PRESENT: ascites Extremities exam: PRESENT: tenderness Musculoskeletal exam: PRESENT: tenderness Neurological exam: PRESENT: alert, awake Psychiatric exam: PRESENT: anxious Results Laboratory Results: 10/28/18 03:05 10/28/18 03:05 10/27/18 10/27/18 10/27/18 07:48 07:48 16:15 WBC 23.5 H RBC 3.65 L Hgb 10.4 L D Hct 32.9 L MCV 90 MCH 28.5 MCHC 31.6 L RDW 14.9 H Plt Count 488 H Seg Neutrophils % Not Reportable Lymphocytes % Not Reportable Monocytes % Not Reportable Eosinophils % Not Reportable Basophils % Not Reportable Absolute Neutrophils Not Reportable Absolute Lymphocytes Not Reportable Absolute Monocytes Not Reportable Absolute Eosinophils Not Reportable Absolute Basophils Not Reportable Carbonic Acid HCO3/H2CO3 Ratio ABG pH ABG pCO2 ABG pO2 ABG HCO3 ABG O2 Saturation ABG Base Excess FiO2 Sodium 137.5 139.0 Potassium 5.7 H 4.8 Chloride 99 101 Carbon Dioxide 19 L 22 Anion Gap 20 H 16 BUN 60 H 62 H Creatinine 3.91 H 4.25 H Est GFR ( Amer) 19 L 17 L Est GFR (Non-Af Amer) 16 L 14 L Glucose 263 H 199 H Calcium 6.8 L* 6.2 L* Total Bilirubin AST ALT Alkaline Phosphatase Total Protein Albumin 10/28/18 10/28/18 10/28/18 03:05 03:05 03:09 WBC 20.1 H RBC 3.60 L Hgb 10.1 L Hct 32.1 L MCV 89 MCH 28.1 MCHC 31.4 L RDW 15.4 H Plt Count 466 H Seg Neutrophils % Not Reportable Lymphocytes % Not Reportable Monocytes % Not Reportable Eosinophils % Not Reportable Basophils % Not Reportable Absolute Neutrophils Not Reportable Absolute Lymphocytes Not Reportable Absolute Monocytes Not Reportable Absolute Eosinophils Not Reportable Absolute Basophils Not Reportable Carbonic Acid 1.19 HCO3/H2CO3 Ratio 15:1 ABG pH 7.29 L ABG pCO2 39.5 ABG pO2 164.1 H ABG HCO3 18.4 L ABG O2 Saturation 98.9 H ABG Base Excess -7.7 FiO2 15L Sodium 141.3 Potassium 4.5 Chloride 105 Carbon Dioxide 20 L Anion Gap 16 BUN 65 H Creatinine 4.43 H Est GFR ( Amer) 17 L Est GFR (Non-Af Amer) 14 L Glucose 143 H Calcium 5.9 L* Total Bilirubin 0.5 AST 233 H ALT 15 L Alkaline Phosphatase 119 Total Protein 4.8 L Albumin 2.5 L 10/28/18 10/28/18 03:05 03:05 Creatine Kinase 104 CK-MB (CK-2) 1.00 Troponin I 0.013 Impressions: Abdomen/Pelvis CT 10/28/18 00:00 IMPRESSION: Decrease in size of the oral contrast collection along the left upper quadrant related to the known gastric leak. The drainage catheter in the aspect of the left upper quadrant has a small pocket of oral contrast adjacent to it with the bulk of the contrast collection noted more posteriorly and separate from the smaller anterior collection. Grossly stable peripancreatic fluid collection. Enlarging left pleural effusion which is now large. Development of a small left pleural effusion. Persistent large amount of ascites. Interstitial thickening with scattered groundglass opacities within the lungs. TECHNICAL DOCUMENTATION: Quality ID # 436: Final reports with documentation of one or more dose reduction techniques (e.g., Automated exposure control, adjustment of the mA and/or kV according to patient size, use of iterative reconstruction technique) copyright 2011 [employer]- All Rights Reserved Chest CT 10/28/18 00:00 IMPRESSION: Decrease in size of the oral contrast collection along the left upper quadrant related to the known gastric leak. The drainage catheter in the aspect of the left upper quadrant has a small pocket of oral contrast adjacent to it with the bulk of the contrast collection noted more posteriorly and separate from the smaller anterior collection. Grossly stable peripancreatic fluid collection. Enlarging left pleural effusion which is now large. Development of a small left pleural effusion. Persistent large amount of ascites. Interstitial thickening with scattered groundglass opacities within the lungs. TECHNICAL DOCUMENTATION: Quality ID # 436: Final reports with documentation of one or more dose reduction techniques (e.g., Automated exposure control, adjustment of the mA and/or kV according to patient size, use of iterative reconstruction technique) copyright 2011 [employer]- All Rights Reserved Chest X-Ray 10/28/18 00:00 IMPRESSION: Interval development of left basilar pneumonia with an associated pleural effusion. 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 Is this a current diagnosis for this admission?: Yes Plan: We will continue with the recommendation by the nephrology and hematology on cology. 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) Is this a current diagnosis for this admission?: Yes (4) Hypertension Qualifiers: Hypertension type: essential hypertension Qualified Code(s): I10 - Essential (primary) hypertension Is this a current diagnosis for this admission?: Yes Plan: Continue IV fluids and medications (5) Anemia Qualifiers: Anemia type: unspecified type Qualified Code(s): D64.9 - Anemia, uns pecified Is this a current diagnosis for this admission?: Yes (6) Leukocytosis Qualifiers: Leukocytosis type: unspecified Qualified Code(s): D72.829 - Elevated white blood cell count, unspecified Is this a current diagnosis for this admission?: Yes (7) Pancreatic mass Is this a current diagnosis for this admission?: Yes Plan: Status post partial pancreatectomy and splenectomy (8) Acute renal failure Is this a current diagnosis for this admission?: Yes Plan: Most probably post chemo treatment with an acute lysis syndrome
[2018-10-28] MEDS ORDERED: PHARMACY COMMUNICATION ORDER MC NR (09:00)
[2018-10-28] MEDS ORDERED: PROPOFOL 1,000 MG/100 ML INFUS..BTL IV ONE ×2 (09:06→10:19)
[2018-10-28] MEDS ORDERED: PROPOFOL INJ 200 MG/20 ML VIAL IV ONE (09:28)
[2018-10-28] MEDS ORDERED: MIDAZOLAM HCL 50 MG/100 ML RTUINJ ONE (09:54)
[2018-10-28] MEDS ORDERED: ROCURONIUM BROMIDE INJ 50 MG/5 ML VIAL IV ONE (09:55)
[2018-10-28] MEDS ORDERED: PHENYLEPHRINE HCL INJ/PF 10 MG/1 ML SDV ONE ×3 (09:55→20:21)
[2018-10-28] MEDS ORDERED: DEXTROSE 40% GEL 15 GM TUBE NG PRN ×2 (10:00)
[2018-10-28] MEDS ORDERED: SUCCINYLCHOLINE CHLORIDE INJ 200 MG/10 ML VIAL ONE (10:00)
[2018-10-28] MEDS: NORMAL SALINE 1000 ML 1,000 ML IV PRN ×2 (10:05→20:30)
[2018-10-28] MEDS: PANTOPRAZOLE SODIUM 40 MG VIAL IV SCH (10:08)
[2018-10-28] MEDS: CALCIUM GLUCONATE 1000 MG/10 ML INJ IV SCH ×2 (10:08→21:14)
[2018-10-28] MEDS: FLUCONAZOLE 200 MG/NS RTU 200 MG/100 ML RTUPB IV SCH (10:09)
[2018-10-28] MEDS: ALLOPURINOL 100 MG TABLET NG SCH (10:09)
--- NOTE | 2018-10-28 10:09 | RADIOLOGY REPORT (SQ) ---
EXAM DESCRIPTION: CHEST SINGLE VIEW COMPLETED DATE/TIME: 10/28/2018 9:47 am REASON FOR STUDY: ET tube COMPARISON: None. EXAM PARAMETERS: NUMBER OF VIEWS: One view. TECHNIQUE: Single frontal radiographic view of the chest acquired. RADIATION DOSE: NA LIMITATIONS: None. FINDINGS: LUNGS AND PLEURA: Extensive pleural and parenchymal density on the left resulting in not s ignificant opacification of the left hemithorax. No definite infiltrate on the right. MEDIASTINUM AND HILAR STRUCTURES: No masses. Contour normal. HEART AND VASCULAR STRUCTURES: Heart normal in size. Normal vasculature. BONES: No acute findings. HARDWARE: Endotracheal tube present with the tip approximately 4 cm proximal to the moise. NG tube present. Distal portion of the tube directed to the left and left upper quadrant and most likely wit hin small bowel. Position probably related previous gastric bypass surgery however should be correla ant with clinical information. OTHER: No other significant finding. IMPRESSION: Extensive pleural and parenchymal density on the left resulting in significant opacifica tion of the left hemithorax. Probably combination of pleural effusion and infiltrate. Endotracheal tube in proper position. No pneumothorax. Distal NG tube directed to the left and left upper quadra nt possibly related to previous gastric bypass surgery. Recommend clinical correlation. Port on the left with the distal tip projected over the superior vena cava. TECHNICAL DOCUMENTATION: JOB ID: [id number] [employer]- All Rights Reserved Reading location - IP/workstation name: [email or web address]
[2018-10-28 10:39] LABS: HEMATOCRIT 32.9 % (37.9-51.0); HEMOGLOBIN 10.3 g/dL (13.5-17.0); MEAN CORPUSCULAR HEMOGLOBIN 28.1 pg (27.0-33.4); MEAN CORPUSCULAR HGB CONC 31.2 g/dL (32.0-36.0); MEAN CORPUSCULAR VOLUME 90 fl (80-97); PLATELET COUNT 451 10^3/uL (150-450); RED BLOOD COUNT 3.65 10^6/uL (4.35-5.55); RED CELL DISTRIBUTION WIDTH 15.1 % (11.5-14.0); WHITE BLOOD COUNT 20.4 10^3/uL (4.0-10.5)
[2018-10-28] MEDS ORDERED: PROPOFOL 1,000 MG/100 ML INFUS..BTL IV PRN (10:44)
[2018-10-28 10:53] LABS: ANION GAP 18 (5-19); BLOOD UREA NITROGEN 66 mg/dL (7-20); CARBON DIOXIDE 20 mmol/L (22-30); CHLORIDE 104 mmol/L (98-107); CREATINE KINASE 100 U/L (55-170); GLUCOSE 180 mg/dL (75-110); POTASSIUM 5.2 mmol/L (3.6-5.0); SODIUM 141.7 mmol/L (137-145)
[2018-10-28 11:03] LABS: CREATINE KINASE MB 0.9 ng/mL (<4.55); TROPONIN I 0.012 ng/mL
[2018-10-28 11:10] LABS: URIC ACID 24.5 mg/dL (3.5-8.5)
[2018-10-28] MEDS: DEXTROSE 5%-WATER 250 ML with PHENYLEPHRINE HCL 40 MG IV PRN ×4 (11:10→20:44)
[2018-10-28 11:12] LABS: ARTERIAL BLOOD H2CO3 1.37 mmol/L (1.05-1.35); ARTERIAL BLOOD HCO3 19.9 mmol/L (20-24); ARTERIAL BLOOD O2 SATURATION 97.5 % (94-98); ARTERIAL BLOOD PCO2 45.6 mmHg (35-45); ARTERIAL BLOOD PH 7.26 (7.35-7.45); ARTERIAL BLOOD PO2 112.8 mmHg (80-100); ARTERIAL BLOOD TOTAL CO2 21.3 mmol/L (23-27)
[2018-10-28 11:13] LABS: ARTERIAL BLOOD FIO2 50%
[2018-10-28 11:43] LABS: ABSOLUTE LYMPHOCYTES# (MANUAL) 1.2 10^3/uL (0.5-4.7); ABSOLUTE MONOCYTES # (MANUAL) 0.4 10^3/uL (0.1-1.4); ABSOLUTE NEUTROPHILS# (MANUAL) 18.8 10^3/uL (1.7-8.2); BASOPHILS % (MANUAL) 0 % (0-2); EOSINOPHILS % (MANUAL) 0 % (0-6); LYMPHOCYTES % (MANUAL) 6 % (13-45); MONOCYTES % (MANUAL) 2 % (3-13); NUCLEATED RED BLOOD CELLS 1 /100 WBC (0); SEGMENTED NEUTROPHILS % (MAN) 92 % (42-78); TOTAL CELLS COUNTED 100
[2018-10-28 11:45] LABS: ANISOCYTOSIS SLIGHT; PLATELET COMMENT INCREASED; PLATELET LARGE PRESENT; POIKILOCYTOSIS SLIGHT; POLYCHROMASIA 1+; SCHISTOCYTES SLIGHT
[2018-10-28] MEDS ORDERED: MIDAZOLAM HCL 50 MG/100 ML RTUINJ IV PRN (12:12)
--- NOTE | 2018-10-28 12:47 | PDOC CONSULTATION ---
Consultation Consult Date: 10/28/18 History of Present Illness Admission Date/PCP: 10/25/18 08:07 MICHELLE ROSADO MD History of Present Illness: MARILUZ SANDOVAL is a 58 year old male with known history of stage IV diffuse large B-cell lymphoma, status post partial pacreactectomy and splenectomy complicated by continued gastric leak was admitted on Sunday with severe pain and weakness, intractable nausea and vomiting. He got a dose of Ritux on and was supposed to receive CHOP on Sunday but unfortunately was not able to receive that because he was in the ED. Patient is continuing to be in severe pain and initially was on a pain pump which made him quite lethargic. Last night he went into respiratory failure and was transferred down to the ICU. His repeat CT scan without contrast shows worsening left pleural effusion. Pain has been better controlled now. Patient is confused and disoriented and unable to maintain adequate conversation. His admission creatinine on the was 0.9. On the and went up to 2.9 and currently is now 4.9. He is weak. He was given vancomycin by the pharmacy and he had levels done on the which was 28 and repeat levels today is also 28, both toxic levels.Patient is currently anuric.He is not on any IV fluids. There is some mention that he might have tumor lysis syndrome but I do not see labs confirming that. Patient is currently on IV PIP TAZO and vancomycin. His and son were at the bedside and there are numerous questions which were answered. Past Medical History Cardiac Medical History: Denies: Atrial Fibrillation, Coronary Artery Disease, Heart Murmur, Hyperlipidemia, Myocardial Infarction, Peripheral Vascular Disease Pulmonary Medical History: Denies: Asthma, Bronchitis, Chronic Obstructive Pulmonary Disease (COPD), Pneumonia Neurological Medical History: Denies: Seizures Endocrine Medical History: Reports: Diabetes Mellitus Type 2 Denies: Hyperthyroidism, Hypothyroidism Malignancy Medical History: Reports: Lymphoma Musculoskeltal Medical History: Denies: Arthritis, Systemic Lupus Erythematosus Psychiatric Medical History: Reports: Depression Past Surgical History Past Surgical History: Reports: Herniorrhaphy, Splenectomy, Tonsillectomy Denies: Appendectomy, Cholecystectomy, Coronary Artery Bypass Graft, Gastric Bypass Surgery Social History Lives with: Family Smoking Status: Unknown if Ever Smoked Frequency of Alcohol Use: None Hx Recreational Drug Use: No Drugs: None Hx Prescription Drug Abuse: No - Advance Directive Resuscitation Status: Full Code Family History Parental Family History Reviewed: Yes - Negative for CKD Children Family History Reviewed: No Sibling(s) Family History Reviewed.: No Medication/Allergy Home Medications: Allopurinol [Zyloprim 300 mg Tablet] 300 mg PO DAILY 10/25/18 Ciprofloxacin [Cipro] 5 ml PO Q12 10/25/18 Duloxetine HCl [Cymbalta] 60 mg PO DAILY 10/25/18 Insulin Degludec [Tresiba Flextouch U-100] 10 unit SQ QHS 10/25/18 Loratadine [Claritin 10 mg Tablet] 10 mg PO DAILY 10/25/18 Ondansetron [Zofran Odt 4 mg Tablet] 8 mg PO Q8HP PRN 10/25/18 Potassium Chloride [Klor-Con M20] 20 meq PO DAILY 10/25/18 Prednisone [Deltasone 20 mg Tablet] 100 mg PO DAILY 10/25/18 Promethazine HCl [Phenergan 25 mg Tablet] 25 mg PO Q4HP PRN 10/25/18 Allergies/Adverse Reactions: No Known Allergies Allergy (Verified 10/08/18 06:06) Review of Systems Constitutional: PRESENT: anorexia, fatigue, weakness, weight loss. ABSENT: fever(s), headache(s), night sweats Nose, Mouth, and Throat: ABSENT: mouth pain, sore throat Cardiovascular: PRESENT: dyspnea on exertion, edema, orthropnea. ABSENT: chest pain Respiratory: PRESENT: dyspnea. ABSENT: hemoptysis Gastrointestinal: PRESENT: abdominal pain, nausea, vomiting. ABSENT: diarrhea, dysphagia, heartburn, hematemesis, hematochezia Neurological: PRESENT: confusion. ABSENT: abnormal gait, abnormal movements, abnormal speech, convulsions, focal weakness, frequent falls Endocrine: ABSENT: flushing, polydipsia Hematologic/Lymphatic: ABSENT: easy bruising, lymphadenopathy Physical Exam Vital Signs: Temp Pulse Resp BP Pulse Ox 98.1 F 116 H 19 94/60 L 96 10/28/18 08:00 10/28/18 10:00 10/28/18 10:00 10/28/18 10:00 10/28/18 10:00 Intake & Output 10/27/18 10/28/18 10/29/18 06:59 06:59 06:59 Intake Total 5235 2397 1167 Output Total 85 220 45 Balance 2643 2177 1122 Weight 98.4 kg 97.2 kg General appearance: PRESENT: no acute distress Exam: Confused and disoriented Eye exam: PRESENT: conjunctiva pink, EOMI, PERRLA. ABSENT: scleral icterus Ear exam: PRESENT: normal external ear exam Mouth exam: PRESENT: moist, neck supple Neck exam: ABSENT: meningismus, tenderness, thyromegaly, tracheal deviation Respiratory exam: PRESENT: clear to auscultation merissa, crackles, rhonchi Cardiovascular exam: PRESENT: +S1, +S2 GI/Abdominal exam: PRESENT: ascites, normal bowel sounds, soft. ABSENT: organomegaly, tenderness Extremities exam: PRESENT: pedal edema Musculoskeletal exam: ABSENT: deformity, normal inspection, tenderness Neurological exam: PRESENT: altered, awake. ABSENT: oriented to person, oriented to place, oriented to time Psychiatric exam: PRESENT: agitated, anxious Skin exam: ABSENT: cyanosis, erythema, mottled, rash Results Laboratory Results: 10/28/18 10:16 10/28/18 10:16 10/27/18 10/28/18 10/28/18 16:15 03:05 03:05 WBC 20.1 H RBC 3.60 L Hgb 10.1 L Hct 32.1 L MCV 89 MCH 28.1 MCHC 31.4 L RDW 15.4 H Plt Count 466 H Seg Neutrophils % Not Reportable Lymphocytes % Not Reportable Monocytes % Not Reportable Eosinophils % Not Reportable Basophils % Not Reportable Absolute Neutrophils Not Reportable Absolute Lymphocytes Not Reportable Absolute Monocytes Not Reportable Absolute Eosinophils Not Reportable Absolute Basophils Not Reportable Carbonic Acid HCO3/H2CO3 Ratio ABG pH ABG pCO2 ABG pO2 ABG HCO3 ABG O2 Saturation ABG Base Excess FiO2 Sodium 139.0 141.3 Potassium 4.8 4.5 Chloride 101 105 Carbon Dioxide 22 20 L Anion Gap 16 16 BUN 62 H 65 H Creatinine 4.25 H 4.43 H Est GFR ( Amer) 17 L 17 L Est GFR (Non-Af Amer) 14 L 14 L Glucose 199 H 143 H Uric Acid Calcium 6.2 L* 5.9 L* Total Bilirubin 0.5 AST 233 H ALT 15 L Alkaline Phosphatase 119 Total Protein 4.8 L Albumin 2.5 L 10/28/18 10/28/18 10/28/18 03:09 10:16 10:16 WBC 20.4 H RBC 3.65 L Hgb 10.3 L Hct 32.9 L MCV 90 MCH 28.1 MCHC 31.2 L RDW 15.1 H Plt Count 451 H Seg Neutrophils % Not Reportable Lymphocytes % Not Reportable Monocytes % Not Reportable Eosinophils % Not Reportable Basophils % Not Reportable Absolute Neutrophils Not Reportable Absolute Lymphocytes Not Reportable Absolute Monocytes Not Reportable Absolute Eosinophils Not Reportable Absolute Basophils Not Reportable Carbonic Acid 1.19 HCO3/H2CO3 Ratio 15:1 ABG pH 7.29 L ABG pCO2 39.5 ABG pO2 164.1 H ABG HCO3 18.4 L ABG O2 Saturation 98.9 H ABG Base Excess -7.7 FiO2 15L Sodium 141.7 Potassium 5.2 H Chloride 104 Carbon Dioxide 20 L Anion Gap 18 BUN 66 H Creatinine 4.96 H Est GFR ( Amer) 15 L Est GFR (Non-Af Amer) 12 L Glucose 180 H Uric Acid Calcium 6.0 L* Total Bilirubin AST ALT Alkaline Phosphatase Total Protein Albumin 10/28/18 10/28/18 10/28/18 10:16 10:16 10:45 WBC RBC Hgb Hct MCV MCH MCHC RDW Plt Count Seg Neutrophils % Lymphocytes % Monocytes % Eosinophils % Basophils % Absolute Neutrophils Absolute Lymphocytes Absolute Monocytes Absolute Eosinophils Absolute Basophils Carbonic Acid 1.37 H HCO3/H2CO3 Ratio 14:1 ABG pH 7.26 L ABG pCO2 45.6 H ABG pO2 112.8 H ABG HCO3 19.9 L ABG O2 Saturation 97.5 ABG Base Excess -7.0 FiO2 50% Sodium Potassium Chloride Carbon Dioxide Anion Gap BUN Creatinine Est GFR ( Amer) Est GFR (Non-Af Amer) Glucose Uric Acid 24.5 H Calcium Total Bilirubin AST ALT Alkaline Phosphatase Total Protein 4.9 L Albumin 10/28/18 10/28/18 10/28/18 03:05 03:05 10:16 Creatine Kinase 104 100 CK-MB (CK-2) 1.00 Troponin I 0.013 10/28/18 10:16 Creatine Kinase CK-MB (CK-2) 0.90 Troponin I 0.012 Impressions: Abdomen/Pelvis CT 10/28/18 00:00 IMPRESSION: Decrease in size of the oral contrast collection along the left upper quadrant related to the known gastric leak. The drainage catheter in the aspect of the left upper quadrant has a small pocket of oral contrast adjacent to it with the bulk of the contrast collection noted more posteriorly and separate from the smaller anterior collection. Grossly stable peripancreatic fluid collection. Enlarging left pleural effusion which is now large. Development of a small left pleural effusion. Persistent large amount of ascites. Interstitial thickening with scattered groundglass opacities within the lungs. TECHNICAL DOCUMENTATION: Quality ID # [id number]: Final reports with documentation of one or more dose reduction techniques (e.g., Automated exposure control, adjustment of the mA and/or kV according to patient size, use of iterative reconstruction technique) copyright 2010 [employer]- All Rights Reserved Chest CT 10/28/18 00:00 IMPRESSION: Decrease in size of the oral contrast collection along the left upper quadrant related to the known gastric leak. The drainage catheter in the aspect of the left upper quadrant has a small pocket of oral contrast adjacent to it with the bulk of the contrast collection noted more posteriorly and separate from the smaller anterior collection. Grossly stable peripancreatic fluid collection. Enlarging left pleural effusion which is now large. Development of a small left pleural effusion. Persistent large amount of ascites. Interstitial thickening with scattered groundglass opacities within the lungs. TECHNICAL DOCUMENTATION: Quality ID # [id number]: Final reports with documentation of one or more dose reduction techniques (e.g., Automated exposure control, adjustment of the mA and/or kV according to patient size, use of iterative reconstruction technique) copyright 2010 [employer]- All Rights Reserved Chest X-Ray 10/28/18 00:00 IMPRESSION: Extensive pleural and parenchymal density on the left resulting in significant opacification of the left hemithorax. Probably combination of pleural effusion and infiltrate. Endotracheal tube in proper position. No pneumothorax. Distal NG tube directed to the left and left upper quadrant possibly related to previous gastric bypass surgery. Recommend clinical correlation. Port on the left with the distal tip projected over the superior vena cava. Assessment & Plan - Diagnosis (1) Hypotension Plan: In my opinion patient is an early septic shock. Patient is not on any IV fluids and will start IV fluids. Will soon need initiation of IV pressor agents and will recommend Levophed. Patient is critical.Patient is on broad-spectrum antibiotics including PIP tazo and vancomycin.Antibiotics needs to be dosed for GFR of less than 10 cc/min. Patient is currently is anuric. I am going to initiate renal replacements in the next 24 hours. I have adjusted the the present dosing of Pip - Tazo. Vancomycin levels are toxic on the 16th as well as today. Pharmacy needs to be more vigilant in dosing vancomycin in this anuric renal patient. (2) Abdominal infection Is this a current diagnosis for this admission?: Yes Plan: Patient has been having an abdominal gastric leak.Looks like he has ascites and possible peritonitis might be an ongoing factor. Patient I believe is being taken up for redo surgery this afternoon at which point Dr. Solis will be able to appreciate the ascitic fluid and send that for Gram stain and cultures and cell study. (3) Acute abdominal pain Is this a current diagnosis for this admission?: Yes Plan: Secondary to all the above. Patient is in the process of being intubated and therefore pain management would be a whole lot better. (4) Acute kidney injury Is this a current diagnosis for this admission?: Yes Plan: Patient has gone into acute anuric renal shutdown.Multiple factors have led to his kidney shutdown and they include ATN/septic failure/drug toxicities including vancomycin/tumor lysis syndrome. Starting IV fluid resuscitation. Recommend initiation of IV pressor agents in the form of Levophed. Patient needs renal replacement therapy. I discussed the procedure at length with the patient's was at the bedside.And fluid infections, hypotension, bleeding and in rare cases his cardiac arrest. Patient's is given me consent to proceed. If patient goes into folds septic shock and goes on multiple pressor agents and patient would need to be on CVVH which we do not have in this hospital and will require transfer.I have talked with Dr. Ambreen Eugene for placement of a dialysis catheter to initiate dialysis in the next 24 hours.Please dose all medications to GFR of approximately 25 cc/min once dialysis is initiated. Post script, labs have come back showing uric acid high at 24, high LDH of 7000. Patient has obviously got tumor lysis as a major factor producing his acute renal shutdown. Patient needs IV fluid resuscitation stat. He needs IV rasburicase. Called pharmacy unfortunately they do not have it here. I asked them to see if they can procure it from a neighboring hospital so that we can start this on this patient as soon as possible. 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 Patient has been given IV Rituxan on the last . He has not received CHOP yet for the best of my information collection (7) Tumor lysis syndrome Is this a current diagnosis for this admission?: Yes Plan: I am going to order uric acid levels, phosphorus and LDH levels. If the uric acid levels are more than 10 I would recommend patient be given rasburicase. (8) Leukocytosis Qualifiers: Leukocytosis type: unspecified Qualified Code(s): D72.829 - Elevated white blood cell count, unspecified Is this a current diagnosis for this admission?: Yes Plan: Most likely from his septic stage. Unsure if the patient has received IV steroids any time recently. (9) Type 2 diabetes mellitus Is this a current diagnosis for this admission?: Yes Plan: Needs close monitoring of his blood sugars given his precarious status, especially with the onset of septic shock as well as acute renal injury. - Time Time Spent: Greater than 70 Minutes Medications reviewed and adjusted accordingly: Yes Disposition: Total time spent in care of this patient was approximately 80 minutes of which half the time was spent in counseling and coordinating care. Patient's is critical. Needs to initiate renal replacements.
[2018-10-28 13:50] LABS: PROTHROMBIN TIME 14.8 SEC (11.4-15.4)
[2018-10-28] MEDS ORDERED: NORMAL SALINE IV SCH (14:00)
[2018-10-28] MEDS ORDERED: TAZOBACTAM IV SCH (14:00)
[2018-10-28] MEDS ORDERED: CALCIUM GLUCONATE 1000 MG/10 ML INJ IV SCH (14:00)
[2018-10-28] MEDS ORDERED: PIPERACILLIN SODIUM IV SCH (14:00)
[2018-10-28 14:38] LABS: ARTERIAL BLOOD BASE EXCESS -7.1 mmol/L; ARTERIAL BLOOD FIO2 50%; ARTERIAL BLOOD H2CO3 0.98 mmol/L (1.05-1.35); ARTERIAL BLOOD HCO3 17.6 mmol/L (20-24); ARTERIAL BLOOD O2 SATURATION 98.8 % (94-98); ARTERIAL BLOOD PCO2 32.7 mmHg (35-45); ARTERIAL BLOOD PH 7.35 (7.35-7.45); ARTERIAL BLOOD PO2 146.8 mmHg (80-100); ARTERIAL BLOOD TOTAL CO2 18.6 mmol/L (23-27)
--- NOTE | 2018-10-28 14:48 | PDOC PROGRESS REPORT ---
Subjective Progress Note for:: 10/28/18 Reason For Visit: LYMPHOMA,HYPERKALEMIA Physical Exam Vital Signs: Temp Pulse Resp BP Pulse Ox 98.2 F 98 22 H 80/58 L 99 10/28/18 12:00 10/28/18 14:00 10/28/18 14:00 10/28/18 14:00 10/28/18 14:00 Intake & Output 10/27/18 10/28/18 10/29/18 06:59 06:59 06:59 Intake Total 2728 2397 1234 Output Total 85 220 55 Balance 2643 2177 1179 Weight 98.4 kg 97.2 kg General appearance: PRESENT: other - ventilated, sedated on versed and propofol Respiratory exam: PRESENT: other - decreased bs left side. clear rt. GI/Abdominal exam: PRESENT: other - obvious stool from rik site noted abd soft doughy. Results Laboratory Results: 10/28/18 10:16 10/28/18 10:16 10/27/18 10/28/18 10/28/18 16:15 03:05 03:05 WBC 20.1 H RBC 3.60 L Hgb 10.1 L Hct 32.1 L MCV 89 MCH 28.1 MCHC 31.4 L RDW 15.4 H Plt Count 466 H Seg Neutrophils % Not Reportable Lymphocytes % Not Reportable Monocytes % Not Reportable Eosinophils % Not Reportable Basophils % Not Reportable Absolute Neutrophils Not Reportable Absolute Lymphocytes Not Reportable Absolute Monocytes Not Reportable Absolute Eosinophils Not Reportable Absolute Basophils Not Reportable Carbonic Acid HCO3/H2CO3 Ratio ABG pH ABG pCO2 ABG pO2 ABG HCO3 ABG O2 Saturation ABG Base Excess FiO2 Sodium 139.0 141.3 Potassium 4.8 4.5 Chloride 101 105 Carbon Dioxide 22 20 L Anion Gap 16 16 BUN 62 H 65 H Creatinine 4.25 H 4.43 H Est GFR ( Amer) 17 L 17 L Est GFR (Non-Af Amer) 14 L 14 L Glucose 199 H 143 H Uric Acid Calcium 6.2 L* 5.9 L* Total Bilirubin 0.5 AST 233 H ALT 15 L Alkaline Phosphatase 119 Total Protein 4.8 L Albumin 2.5 L Blood Type Antibody Screen 10/28/18 10/28/18 10/28/18 03:09 10:16 10:16 WBC 20.4 H RBC 3.65 L Hgb 10.3 L Hct 32.9 L MCV 90 MCH 28.1 MCHC 31.2 L RDW 15.1 H Plt Count 451 H Seg Neutrophils % Not Reportable Lymphocytes % Not Reportable Monocytes % Not Reportable Eosinophils % Not Reportable Basophils % Not Reportable Absolute Neutrophils Not Reportable Absolute Lymphocytes Not Reportable Absolute Monocytes Not Reportable Absolute Eosinophils Not Reportable Absolute Basophils Not Reportable Carbonic Acid 1.19 HCO3/H2CO3 Ratio 15:1 ABG pH 7.29 L ABG pCO2 39.5 ABG pO2 164.1 H ABG HCO3 18.4 L ABG O2 Saturation 98.9 H ABG Base Excess -7.7 FiO2 15L Sodium 141.7 Potassium 5.2 H Chloride 104 Carbon Dioxide 20 L Anion Gap 18 BUN 66 H Creatinine 4.96 H Est GFR ( Amer) 15 L Est GFR (Non-Af Amer) 12 L Glucose 180 H Uric Acid Calcium 6.0 L* Total Bilirubin AST ALT Alkaline Phosphatase Total Protein Albumin Blood Type Antibody Screen 10/28/18 10/28/18 10/28/18 10:16 10:16 10:45 WBC RBC Hgb Hct MCV MCH MCHC RDW Plt Count Seg Neutrophils % Lymphocytes % Monocytes % Eosinophils % Basophils % Absolute Neutrophils Absolute Lymphocytes Absolute Monocytes Absolute Eosinophils Absolute Basophils Carbonic Acid 1.37 H HCO3/H2CO3 Ratio 14:1 ABG pH 7.26 L ABG pCO2 45.6 H ABG pO2 112.8 H ABG HCO3 19.9 L ABG O2 Saturation 97.5 ABG Base Excess -7.0 FiO2 50% Sodium Potassium Chloride Carbon Dioxide Anion Gap BUN Creatinine Est GFR ( Amer) Est GFR (Non-Af Amer) Glucose Uric Acid 24.5 H Calcium Total Bilirubin AST ALT Alkaline Phosphatase Total Protein 4.9 L Albumin Blood Type Antibody Screen 10/28/18 10/28/18 12:30 14:25 WBC RBC Hgb Hct MCV MCH MCHC RDW Plt Count Seg Neutrophils % Lymphocytes % Monocytes % Eosinophils % Basophils % Absolute Neutrophils Absolute Lymphocytes Absolute Monocytes Absolute Eosinophils Absolute Basophils Carbonic Acid 0.98 L HCO3/H2CO3 Ratio 17:1 ABG pH 7.35 ABG pCO2 32.7 L ABG pO2 146.8 H ABG HCO3 17.6 L ABG O2 Saturation 98.8 H ABG Base Excess -7.1 FiO2 50% Sodium Potassium Chloride Carbon Dioxide Anion Gap BUN Creatinine Est GFR ( Amer) Est GFR (Non-Af Amer) Glucose Uric Acid Calcium Total Bilirubin AST ALT Alkaline Phosphatase Total Protein Albumin Blood Type O POSITIVE Antibody Screen NEGATIVE 10/28/18 10/28/18 10/28/18 03:05 03:05 10:16 Creatine Kinase 104 100 CK-MB (CK-2) 1.00 Troponin I 0.013 10/28/18 10:16 Creatine Kinase CK-MB (CK-2) 0.90 Troponin I 0.012 Impressions: Abdomen/Pelvis CT 10/28/18 00:00 IMPRESSION: Decrease in size of the oral contrast collection along the left upper quadrant related to the known gastric leak. The drainage catheter in the aspect of the left upper quadrant has a small pocket of oral contrast adjacent to it with the bulk of the contrast collection noted more posteriorly and separate from the smaller anterior collection. Grossly stable peripancreatic fluid collection. Enlarging left pleural effusion which is now large. Development of a small left pleural effusion. Persistent large amount of ascites. Interstitial thickening with scattered groundglass opacities within the lungs. TECHNICAL DOCUMENTATION: Quality ID # [id number]: Final reports with documentation of one or more dose reduction techniques (e.g., Automated exposure control, adjustment of the mA and/or kV according to patient size, use of iterative reconstruction technique) copyright 2010 [employer]- All Rights Reserved Chest CT 10/28/18 00:00 IMPRESSION: Decrease in size of the oral contrast collection along the left upper quadrant related to the known gastric leak. The drainage catheter in the aspect of the left upper quadrant has a small pocket of oral contrast adjacent to it with the bulk of the contrast collection noted more posteriorly and separate from the smaller anterior collection. Grossly stable peripancreatic fluid collection. Enlarging left pleural effusion which is now large. Development of a small left pleural effusion. Persistent large amount of ascites. Interstitial thickening with scattered groundglass opacities within the lungs. TECHNICAL DOCUMENTATION: Quality ID # [id number]: Final reports with documentation of one or more dose reduction techniques (e.g., Automated exposure control, adjustment of the mA and/or kV according to patient size, use of iterative reconstruction technique) copyright 2010 [employer]- All Rights Reserved Chest X-Ray 10/28/18 00:00 IMPRESSION: Extensive pleural and parenchymal density on the left resulting in significant opacification of the left hemithorax. Probably combination of pleural effusion and infiltrate. Endotracheal tube in proper position. No pneumothorax. Distal NG tube directed to the left and left upper quadrant possibly related to previous gastric bypass surgery. Recommend clinical corre lation. Port on the left with the distal tip projected over the superior vena cava. Assessment & Plan - Plan Summary Plan Summary: events of last pm reviewd pt has become anuric last pm developed hypotension early this am and was brought to icu intubated and started on pressors nephrology and pulm consults appreciated. there is now obvious stool coming from the rik drain which is new. pt has become septic related to this it appears there has been erosion of either the drain or abscess into the colon. pt now septic on pressors and worsening, despite antibiotics long discussion with family about surgical plans will take pt to or for a chest tube to drain the left symptomatic effusion and exploratory laparotomy for abdominal wash out and control of colonic leak I discussed this is a high risk procedure with the family and he may not survive the procedure, but they agree to proceed.
[2018-10-28] MEDS: PIPERACILLIN SODIUM/TAZOBACTAM 2.25 GM in NORMAL SALINE 50 ML IV SCH ×2 (15:15→21:47)
--- NOTE | 2018-10-28 15:31 | PDOC CONSULTATION ---
Consultation Consult Date: 10/28/18 Attending physician:: MICHELLE ROSADO Consult reason:: resp failure History of Present Illness Admission Date/PCP: 10/25/18 08:07 MICHELLE ROSADO MD History of Present Illness: MARILUZ SANDOVAL is a 58 year old male;Status post surgery for abdominal mass which subsequently proved to be lymphoma patient has subsequently undergone chemotherapy and is currently in the ICU with a moderate to large R pleural effusion borderline hypoxia tumor lysis syndrome with a rising creatinine and BUN and a change in the fluid from his JF drain. After discussion with his primary care physician and immigration attorney we elected to intubate him as he is scheduled to go back to surgery later on today this way intubated for now we will help facilitate his comfort and ability to withstand narcotics. Past Medical History Cardiac Medical History: Reports: Hypertension Denies: Atrial Fibrillation, Congestive Heart Failure, Coronary Artery Disease, Myocardial Infarction, Hyperlipidema, Peripheral Vascular Disease, Heart Murmur Pulmonary Medical History: Denies: Asthma, Bronchitis, Chronic Obstructive Pulmonary Disease (COPD), Pneumonia Neurological Medical History: Denies: Seizures Endocrine Medical History: Reports: Diabetes Mellitus Type 2 Denies: Hyperthyroidism, Hypothyroidism Malignancy Medical History: Reports: Lymphoma Musculoskeltal Medical History: Denies: Arthritis Psychiatric Medical History: Reports: Depression Hematology: Denies: Anemia Past Surgical History Past Surgical History: Reports: Herniorrhaphy, Splenectomy, Tonsillectomy Denies: Appendectomy, Cholecystectomy, Coronary Artery Bypass Graft, Gastric Bypass Surgery Social History Lives with: Family Smoking Status: Former Smoker Frequency of Alcohol Use: None Hx Recreational Drug Use: No Drugs: None Hx Prescription Drug Abuse: No - Advance Directive Resuscitation Status: Full Code Family History Parental Family History Reviewed: No Children Family History Reviewed: No Sibling(s) Family History Reviewed.: No Medication/Allergy Home Medications: Allopurinol [Zyloprim 300 mg Tablet] 300 mg PO DAILY 10/25/18 Ciprofloxacin [Cipro] 5 ml PO Q12 10/25/18 Duloxetine HCl [Cymbalta] 60 mg PO DAILY 10/25/18 Insulin Degludec [Tresiba Flextouch U-100] 10 unit SQ QHS 10/25/18 Loratadine [Claritin 10 mg Tablet] 10 mg PO DAILY 10/25/18 Ondansetron [Zofran Odt 4 mg Tablet] 8 mg PO Q8HP PRN 10/25/18 Potassium Chloride [Klor-Con M20] 20 meq PO DAILY 10/25/18 Prednisone [Deltasone 20 mg Tablet] 100 mg PO DAILY 10/25/18 Promethazine HCl [Phenergan 25 mg Tablet] 25 mg PO Q4HP PRN 10/25/18 Allergies/Adverse Reactions: No Known Allergies Allergy (Verified 10/08/18 06:06) Review of Systems ROS unobtainable: Due to endotracheal tube Physical Exam Vital Signs: Temp Pulse Resp BP Pulse Ox 98.1 F 109 H 26 H 115/71 93 10/28/18 08:00 10/28/18 08:00 10/28/18 08:00 10/28/18 08:00 10/28/18 08:00 Intake & Output 10/27/18 10/28/18 10/29/18 06:59 06:59 06:59 Intake Total 2728 2397 Output Total 85 220 25 Balance 2643 2177 -25 Weight 98.4 kg 97.2 kg General appearance: PRESENT: no acute distress, disheveled, well-developed, well-nourished. ABSENT: cooperative Head exam: PRESENT: atraumatic, normocephalic Eye exam: PRESENT: conjunctiva pale. ABSENT: EOMI, nystagmus, scleral icterus Mouth exam: PRESENT: dry mucosa, neck supple, tongue midline, other - ET tube in place Neck exam: ABSENT: carotid bruit, JVD, lymphadenopathy, thyromegaly, tracheal deviation, tracheostomy Respiratory exam: PRESENT: decreased breath sounds, prolonged expiratory phas, rales, rhonchi, unlabored, wheezes. ABSENT: retraction, stridor Cardiovascular exam: PRESENT: RRR, +S1, +S2, tachycardia Pulses: PRESENT: normal radial pulses GI/Abdominal exam: PRESENT: other - Status post surgery JF drain Gentrourinary exam: PRESENT: indwelling catheter Extremities exam: PRESENT: pedal edema. ABSENT: calf tenderness, clubbing, joint swelling Musculoskeletal exam: ABSENT: deformity, dislocation Neurological exam: ABSENT: awake Skin exam: PRESENT: dry, warm Results Laboratory Results: 10/28/18 03:05 10/28/18 03:05 10/27/18 10/27/18 10/27/18 07:48 07:48 16:15 WBC 23.5 H RBC 3.65 L Hgb 10.4 L D Hct 32.9 L MCV 90 MCH 28.5 MCHC 31.6 L RDW 14.9 H Plt Count 488 H Seg Neutrophils % Not Reportable Lymphocytes % Not Reportable Monocytes % Not Reportable Eosinophils % Not Reportable Basophils % Not Reportable Absolute Neutrophils Not Reportable Absolute Lymphocytes Not Reportable Absolute Monocytes Not Reportable Absolute Eosinophils Not Reportable Absolute Basophils Not Reportable Carbonic Acid HCO3/H2CO3 Ratio ABG pH ABG pCO2 ABG pO2 ABG HCO3 ABG O2 Saturation ABG Base Excess FiO2 Sodium 137.5 139.0 Potassium 5.7 H 4.8 Chloride 99 101 Carbon Dioxide 19 L 22 Anion Gap 20 H 16 BUN 60 H 62 H Creatinine 3.91 H 4.25 H Est GFR ( Amer) 19 L 17 L Est GFR (Non-Af Amer) 16 L 14 L Glucose 263 H 199 H Calcium 6.8 L* 6.2 L* Total Bilirubin AST ALT Alkaline Phosphatase Total Protein Albumin 10/28/18 10/28/18 10/28/18 03:05 03:05 03:09 WBC 20.1 H RBC 3.60 L Hgb 10.1 L Hct 32.1 L MCV 89 MCH 28.1 MCHC 31.4 L RDW 15.4 H Plt Count 466 H Seg Neutrophils % Not Reportable Lymphocytes % Not Reportable Monocytes % Not Reportable Eosinophils % Not Reportable Basophils % Not Reportable Absolute Neutrophils Not Reportable Absolute Lymphocytes Not Reportable Absolute Monocytes Not Reportable Absolute Eosinophils Not Reportable Absolute Basophils Not Reportable Carbonic Acid 1.19 HCO3/H2CO3 Ratio 15:1 ABG pH 7.29 L ABG pCO2 39.5 ABG pO2 164.1 H ABG HCO3 18.4 L ABG O2 Saturation 98.9 H ABG Base Excess -7.7 FiO2 15L Sodium 141.3 Potassium 4.5 Chloride 105 Carbon Dioxide 20 L Anion Gap 16 BUN 65 H Creatinine 4.43 H Est GFR ( Amer) 17 L Est GFR (Non-Af Amer) 14 L Glucose 143 H Calcium 5.9 L* Total Bilirubin 0.5 AST 233 H ALT 15 L Alkaline Phosphatase 119 Total Protein 4.8 L Albumin 2.5 L 10/28/18 10/28/18 03:05 03:05 Creatine Kinase 104 CK-MB (CK-2) 1.00 Troponin I 0.013 Impressions: Abdomen/Pelvis CT 10/28/18 00:00 IMPRESSION: Decrease in size of the oral contrast collection along the left upper quadrant related to the known gastric leak. The drainage catheter in the aspect of the left upper quadrant has a small pocket of oral contrast adjacent to it with the bulk of the contrast collection noted more posteriorly and separate from the smaller anterior collection. Grossly stable peripancreatic fluid collection. Enlarging left pleural effusion which is now large. Development of a small left pleural effusion. Persistent large amount of ascites. Interstitial thickening with scattered groundglass opacities within the lungs. TECHNICAL DOCUMENTATION: Quality ID # 436: Final reports with documentation of one or more dose reduction techniques (e.g., Automated exposure control, adjustment of the mA and/or kV according to patient size, use of iterative reconstruction technique) copyright 2010 [employer]- All Rights Reserved Chest CT 10/28/18 00:00 IMPRESSION: Decrease in size of the oral contrast collection along the left upper quadrant related to the known gastric leak. The drainage catheter in the aspect of the left upper quadrant has a small pocket of oral contrast adjacent to it with the bulk of the contrast collection noted more posteriorly and separate from the smaller anterior collection. Grossly stable peripancreatic fluid collection. Enlarging left pleural effusion which is now large. Development of a small left pleural effusion. Persistent large amount of ascites. Interstitial thickening with scattered groundglass opacities within the lungs. TECHNICAL DOCUMENTATION: Quality ID # 436: Final reports with documentation of one or more dose reduction techniques (e.g., Automated exposure control, adjustment of the mA and/or kV according to patient size, use of iterative reconstruction technique) copyright 2010 [employer]- All Rights Reserved Chest X-Ray 10/28/18 00:00 IMPRESSION: Interval development of left basilar pneumonia with an associated pleural effusion. 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
[2018-10-28] MEDS ORDERED: HYDROMORPHONE HCL INJ/PF 2 MG/ML AMPULE ONE (15:48)
[2018-10-28] MEDS ORDERED: FENTANYL CITRATE INJ/PF 250 MCG/5 ML AMPULE ONE (15:48)
[2018-10-28] MEDS ORDERED: MIDAZOLAM 2 MG/2 ML INJ ONE (15:51)
[2018-10-28 16:29] LABS: CREATINE KINASE MB 0.52 ng/mL (<4.55); TROPONIN I 0.015 ng/mL
[2018-10-28] MEDS ORDERED: HEPARIN SODIUM,PORCINE/NS/PF 0 UNIT/0 ML RTUINJ IV ONE (17:07)
[2018-10-28] MEDS ORDERED: RASBURICASE IV ONE (18:00)
[2018-10-28] MEDS ORDERED: NORMAL SALINE IV ONE (18:00)
[2018-10-28] MEDS ORDERED: FENTANYL CITRATE INJ/PF 100 MCG/2 ML AMPUL IV PRN ×3 (18:10)
[2018-10-28] MEDS ORDERED: DIPHENHYDRAMINE HCL 50 MG/ML VIAL IV PRN (18:10)
[2018-10-28] MEDS ORDERED: PROMETHAZINE HCL INJ 25 MG/1 ML VIAL IV PRN ×2 (18:10)
[2018-10-28] MEDS ORDERED: MEPERIDINE HCL/PF INJ 25 MG/1 ML DISP.SYRIN IV PRN (18:10)
--- NOTE | 2018-10-28 18:48 | Operative Report ---
Nonrecallable Operative Report DATE OF SURGERY: 10/28/18 PREOPERATIVE DIAGNOSIS: 1. Phlebosclerosis. 2. Severe sepsis POSTOPERATIVE DIAGNOSIS: Same as above OPERATION: 1. Ultrasound-guided central venous puncture. 2. Right internal jugular vein central line placement. SURGEON: FERCHO SUAREZ ANESTHESIA: GA TISSUE REMOVED OR ALTERED: None COMPLICATIONS: None apparent ESTIMATED BLOOD LOSS: Minimal PROCEDURE: Drains/implants: Right IJ central line at 14 cm. Procedure in detail: After informed consent was obtained from the patient, he was laid in the Trendelenburg position in the operating room. The area of the right neck was prepped and draped in a normal sterile fashion. The ultrasound was used to identify the right internal jugular vein. The IJ was compressible with normal flow. Under direct ultrasonic guidance the supplied access needle was used to cannulate the vein. Dark venous, nonpulsatile blood was returned in the syringe. The wire was inserted into the vein easily. The wire was confirmed to be within the lumen of the vein using the ultrasound device. The catheter was then slid over the wire using a modified Seldinger technique. The catheter was sutured to the skin at approximately 14 cm. The catheter was aspirated and flushed x3 without difficulty. A dressing was then fashioned and the procedure was concluded. All sponge, instrument, and needle counts were correct x2. Condition: Critical.
--- NOTE | 2018-10-28 19:11 | RADIOLOGY REPORT (SQ) ---
EXAM DESCRIPTION: CHEST SINGLE VIEW COMPLETED DATE/TIME: 10/28/2018 7:00 pm REASON FOR STUDY: CHEST TUBE PLACEMENT COMPARISON: 10/28/2018 EXAM PARAMETERS: NUMBER OF VIEWS: One view TECHNIQUE: Single frontal radiograph of the chest. RADIATION DOSE: N/A LIMITATIONS: None. FINDINGS: TEMPORARY SUPPORT DEVICES:ETT in expected location. NG tube courses below the manuel-diaphr agm in to the stomach. Central venous access catheter tip is in expected location. Additional venous access catheter tip at the cavoatrial junction. LUNGS AND PLEURA: Marked improved aeration the lungs over the exam earlier the same day. Significant decrease in the left pleural effusion. No masses. No pneumothorax. Left chest tube in place. MEDIASTINUM AND HILAR STRUCTURES: No masses. Contour normal. HEART AND VASCULAR STRUCTURES: Heart normal in size. normal vascularity. Aorta normal for age. BONES: No acute findings. OTHER: No other significant finding. IMPRESSION: Marked improved aeration of the lungs over the exam earlier the same day. SUPPORT DEVICE(S) IN EXPECTED LOCATIONS. TECHNICAL DOCUMENTATION: JOB ID: [id number] [employer]- All Rights Reserved Reading location - IP/workstation name: [email or web address]
--- NOTE | 2018-10-28 19:33 | Operative Report ---
Nonrecallable Operative Report DATE OF SURGERY: 10/28/18 PREOPERATIVE DIAGNOSIS: sepsis,lymphoma POSTOPERATIVE DIAGNOSIS: same OPERATION: left chest tube placement, exploratory lapartomy, abdominal washout SURGEON: MARGY RODRIGUEZ 1ST DATABASE REPORTING CONSULTANT: FERCHO SUAREZ ANESTHESIA: GA TISSUE REMOVED OR ALTERED: omental biopsy. ascitic fluid COMPLICATIONS: none ESTIMATED BLOOD LOSS: 200 INTRAOPERATIVE FINDINGS: see dictation PROCEDURE: see dictation
[2018-10-28] MEDS ORDERED: NOREPINEPHRINE BITARTRATE INJ/PF 4 MG/4 ML SDV IV ONE (20:13)
[2018-10-28] MEDS: DEXTROSE 5%-WATER 250 ML with NOREPINEPHRINE BITARTRATE 4 MG IV PRN ×2 (20:20)
[2018-10-28] MEDS: RASBURICASE IV ONE (21:50)
[2018-10-28] MEDS: NORMAL SALINE IV ONE (21:50)
[2018-10-28 22:56] LABS: ARTERIAL BLOOD BASE EXCESS -13.2 mmol/L; ARTERIAL BLOOD H2CO3 0.94 mmol/L (1.05-1.35); ARTERIAL BLOOD O2 SATURATION 98.5 % (94-98); ARTERIAL BLOOD PCO2 31.1 mmHg (35-45); ARTERIAL BLOOD PH 7.24 (7.35-7.45); ARTERIAL BLOOD PO2 143.3 mmHg (80-100)
[2018-10-28 22:57] LABS: ARTERIAL BLOOD FIO2 50%
--- NOTE | 2018-10-28 23:07 | OPERATIVE REPORT E ---
Operative Report NAME: MARILUZ SANDOVAL : 1960 AGE: 58Y DATE OF SURGERY: 10/28/2018 ROOM: 607 PREOPERATIVE DIAGNOSES: 1. SEPSIS. 2. B-CELL LYMPHOMA. 3. PLEURAL EFFUSION. POSTOPERATIVE DIAGNOSIS: OPERATIVE PROCEDURE: 1. Left chest tube thoracostomy. 2. Exploratory laparotomy with abdominal washout and abdominal drainage. SURGEON: MARGY RODRIGUEZ M.D. PROGRESS CLERK: Hernandez Angel M.D., for wound exposure, help with dissection, and help with closure. 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 Tolerating a liquid diet and an occasional pureed diet with some leakage via the Tian-Bell drain but remaining afebrile with normal white blood count and had been doing well at home. He underwent a chemotherapy infusion approximately 2 days prior to his admission and presented to the emergency room about approximately 3 days ago with severe left-sided back pain. CT scan in the emergency room showed that the Tian-Bell drain was in place, but he had developed a large left pleural effusion. He also developed an elevated white count of 21,000 after the chemotherapy infusion. He was admitted to the hospital for, and improved with some pain management and IV hydration. The following day he appeared better, that was 2 days ago. However, this morning early a rapid response was called, because of some hypotension and altered mental status. He was noted to have a decreased urine output at that time and he was transferred to the intensive care unit for closer monitoring. Upon his arrival in the ICU he was noted to be somewhat hypotensive but responded to IV fluids and some low dose vasopressors, and he was noted to be producing stool like substance to his Tian-Bell drain and around his Tian-Bell drain. He was also noted to be in acute renal failure. He was seen by his primary care doctor. He was seen by pulmonology and nephrology. Nephrology suggested that he is in acute renal failure secondary either to tumor lysis or sepsis. Pulmonology felt that he needed to have a chest tube placed for his pleural effusion and because of the enteric appearing fluid coming from his Tian-Bell drain it was felt by me that he might have eroded his drain into his colon or had tumor eroding in his colon with production now of stool in the abdomen after his chemotherapy. For these reasons he was taken emergently to the operating room for this procedure. PROCEDURE IN DETAIL: The patient was brought to the operating room intubated on a midazolam drip, sedated, placed on the operating table in a supine position, and general anesthesia was given. Dr. Angel placed a central line in the right internal jugular vein and he will dictate it as a separate note. Dr. Arvin Eugene placed a dialysis catheter in his right groin, which will also be dictated in his operative note. After those 2 procedures were completed we prepped and draped the abdomen as well as the chest, and after appropriate time out the first procedure was a chest tube. A left-sided small incision was made at the 6th intercostal space in the mid axillary line and dissection was carried down through the subcutaneous tissue and intercostal muscles with a Pean clamp and a 2-Thai chest tube was placed into the left chest. A large amount of clear fluid was obtained, approximately 600 mL was drained out of the left chest and the chest tube was fixed in place with an 0 Silk suture, a sterile dressing was applied. We then prepped the abdomen for the laparotomy. After adequate prep and drape a trocar incision was made in the left subcostal area just below the previous Tian-Bell drain site. Dissection was carried down through subcutaneous tissue with Bovie cautery. The rectus fascia was divided with Bovie cautery as was the internal/external oblique and transversalis fascia laterally. Once we got into the abdominal cavity we used the Omni retractor to gain exposure and noted almost immediately that there was a large amount of ascitic fluid that appeared to be clear and noninfected, but it was suctioned and sent for C and S and Gram-stain. All the ascitic fluid was suctioned with a Mahan sucker. Once this was done we palpated the internal abdominal contents and noted that there was a nodularity along the entire proximal small bowel as well as the very nodular omentum. It appeared that there was punctate tumor excrescences along the serosal surface of most of the proximal small bowel as well as in the omentum and a section of omentum was obtained with Bovie cautery and sent to pathology from permanent sections. The edges of the omentum that remained were oversewn with 2-0 Silk sutures to control any bleeding. We then turned attention to the upper abdomen. The structures of the omentum as well as the colon were adherent to the diaphragm on the left side quite densely and in order to get into the cavity we needed to do blunt dissection, which we were able to do in a relatively blood less fashion. However, the diaphragm on the left side appeared also to have tumor studs within it. There were tumor excrescences in the left diaphragm and as we were peeling the omental structures and colonic and the splenic flexure away from the diaphragm to search for a fluid pocket, there was a small rent made in the left diaphragm. This was closed with interrupted 0 Prolene sutures. Once this was accomplished we were able to mobilize the omentum and as well as the splenic flexure and left kidney medially to try to find the posterior pocket. There was none. We did find the small hole in the stomach that appeared to be along the greater curvature at the fundus were I was able to palpate the NG tube that was not in the stomach, but in fact in the peritoneal cavity. We pulled that back. I then redirected the NG tube to the distal stomach, past the rent in the fundus. The rent in the fundus as well as the greater curvature of the stomach was involved in tumor and/or was severely indurated and it would not be possibly to primarily close that at this point. We did not find a significant pocket of stool or pus. We immobilized the splenic flexure and the transverse colon, however, there was a significant induration of all the abdominal structures in the left upper quadrant as well as induration of the mesentery of the small bowel with what appeared to be tumor excrescences, but again there was no evidence of any leakage of stool or purulent material in the left upper quadrant. We then copiously irrigated the left upper quadrant and suctioned dry. I fashioned a chest tube with a Sergio drain on the end of it and set it right next to the rent in the stomach in the left upper quadrant and placed another 2 [place] drains and all 3 of those drains were brought out through a dependent portion in the left lower abdomen for drainage of the stomach. Again, the NG tube was left in placed and positioned in the proximal stomach and then fixed to the nares. We then copiously irrigated the left upper quadrant again with normal saline, suctioned dry. We copiously irrigated the rest of the abdominal cavity with normal saline and suctioned dry. There was no significant bleeding that resulted from the procedure. Again, there was no obvious leakage of any stool or enteric contents that we could identify after manipulating the colon and small bowel multiple times. There was a large phlegmon of omentum in the left upper quadrant that appeared to have similar involved in it and it would not have been prudent at this point to try to remove that. At this point we elected to close. We closed the posterior sheath with a running double looped PDS suture and then we closed the anterior rectus sheath as well as the internal/external oblique with interrupted 1 Vicryl suture and we closed the skin with standard skin clips. A chest x-ray was obtained in the operating room, which showed good placement of the chest tube and resolution of the pleural effusion on the left side. The patient was then transferred back in critical condition to the ICU, remaining intubated, and remaining on vasopressors. Estimated blood loss for the procedure was 200 mL. Sponge and needle counts were correct x2. DICTATING PHYSICIAN: MARGY RODRIGUEZ M.D. [id number] ARMANDO#: [id number] ID: [id number] JOB#: [id number] ACCT: [id number] cc:MARGY RODRIGUEZ M.D. >
[2018-10-28] MEDS ORDERED: NORMAL SALINE 1000 ML 1,000 ML IV ONE (23:45)
[2018-10-29 00:01] LABS: CREATINE KINASE MB 1.14 ng/mL (<4.55); TROPONIN I 0.018 ng/mL
[2018-10-29] MEDS: INSULIN LISPRO 100 UNIT/ML 3 ML VIAL SUBCUT SCH ×6 (00:20→23:43)
[2018-10-29] MEDS: DEXTROSE 5%-WATER 250 ML with PHENYLEPHRINE HCL 40 MG IV PRN ×10 (00:28→17:16)
[2018-10-29] MEDS ORDERED: PHENYLEPHRINE HCL INJ/PF 10 MG/1 ML SDV ONE ×2 (03:56→08:09)
[2018-10-29 05:17] LABS: ARTERIAL BLOOD BASE EXCESS -9.1 mmol/L; ARTERIAL BLOOD H2CO3 0.96 mmol/L (1.05-1.35); ARTERIAL BLOOD O2 SATURATION 97.5 % (94-98); ARTERIAL BLOOD PCO2 31.8 mmHg (35-45); ARTERIAL BLOOD PH 7.32 (7.35-7.45); ARTERIAL BLOOD PO2 105.9 mmHg (80-100)
[2018-10-29 05:19] LABS: ARTERIAL BLOOD FIO2 30%
[2018-10-29 05:37] LABS: ALANINE AMINOTRANSFERASE 30 U/L (21-72); ALKALINE PHOSPHATASE 105 U/L (38-126); ASPARTATE AMINO TRANSFERASE 151 U/L (17-59); BILIRUBIN,DIRECT 0.4 mg/dL (0.0-0.4); BILIRUBIN,TOTAL 0.5 mg/dL (0.2-1.3); CREATINE KINASE 165 U/L (55-170); TOTAL PROTEIN 3.9 g/dL (6.3-8.2)
[2018-10-29] MEDS: HEPARIN SOD (PORCINE) 5,000 UNIT/ML 1 ML SYRINGE SUBCUT SCH ×3 (05:40→21:41)
[2018-10-29] MEDS: PIPERACILLIN SODIUM/TAZOBACTAM 2.25 GM in NORMAL SALINE 50 ML IV SCH ×3 (05:40→21:42)
[2018-10-29] MEDS: DEXTROSE 5%-WATER 250 ML with NOREPINEPHRINE BITARTRATE 4 MG IV PRN ×6 (05:44→19:02)
[2018-10-29 05:51] LABS: CREATINE KINASE MB 1.81 ng/mL (<4.55); TROPONIN I 0.028 ng/mL
[2018-10-29] MEDS: MORPHINE SULFATE 10 MG/ML INJ IV PRN ×4 (05:58→20:14)
[2018-10-29 06:20] LABS: URIC ACID 6.1 mg/dL (3.5-8.5)
[2018-10-29 06:48] LABS: ANION GAP 13 (5-19); BLOOD UREA NITROGEN 69 mg/dL (7-20); CARBON DIOXIDE 17 mmol/L (22-30); CHLORIDE 109 mmol/L (98-107); GLUCOSE 203 mg/dL (75-110); SODIUM 138.8 mmol/L (137-145)
--- NOTE | 2018-10-29 06:49 | RADIOLOGY REPORT (SQ) ---
CLINICAL HISTORY: resp failure COMPARISON: October 28, 2018. TECHNIQUE: XR CHEST 1 VIEW 10/29/2018 6:00 AM SENIOR LEAD SOFTWARE ENGINEER FINDINGS: Cardiac silhouette is normal in size. There is a vague left perihilar airspace disease. There is a small left pleural effusion. There is no pneumothorax. There are no acute osseous findings. Endotracheal tube, nasogastric tube, right IJ central line, left subclavian chest port in left chest tube are all unchanged. IMPRESSION: No change.
[2018-10-29 07:14] LABS: CALCIUM 5.4 mg/dL (8.4-10.2)
[2018-10-29 07:15] LABS: POTASSIUM 7.4 mmol/L (3.6-5.0)
[2018-10-29] MEDS ORDERED: CALCIUM GLUCONATE 1000 MG/10 ML INJ IV ONE ×4 (07:16→15:20)
[2018-10-29] MEDS ORDERED: DEXTROSE 50%-WATER 25 GM/50 ML DISP.SYRIN IV ONE (07:17)
[2018-10-29 07:27] LABS: HEMATOCRIT 25.9 % (37.9-51.0); MEAN CORPUSCULAR HEMOGLOBIN 28.1 pg (27.0-33.4); MEAN CORPUSCULAR HGB CONC 31.2 g/dL (32.0-36.0); MEAN CORPUSCULAR VOLUME 90 fl (80-97); PLATELET COUNT 353 10^3/uL (150-450); RED BLOOD COUNT 2.87 10^6/uL (4.35-5.55); RED CELL DISTRIBUTION WIDTH 15.1 % (11.5-14.0); WHITE BLOOD COUNT 14.9 10^3/uL (4.0-10.5)
[2018-10-29 07:30] LABS: HEMOGLOBIN 8.1 g/dL (13.5-17.0)
--- NOTE | 2018-10-29 07:33 | PDOC PROGRESS REPORT ---
Subjective Progress Note for:: 10/29/18 Subjective:: pt intubated. hx obtained from nursing. Reason For Visit: LYMPHOMA,HYPERKALEMIA Physical Exam Vital Signs: Temp Pulse Resp BP Pulse Ox 97.6 F 115 H 10 L 109/68 94 10/29/18 04:00 10/28/18 20:00 10/29/18 07:11 10/29/18 07:11 10/29/18 07:11 Intake & Output 10/28/18 10/29/18 10/30/18 06:59 06:59 06:59 Intake Total 2397 6457 Output Total 1994 Balance 2171 9590 Weight 97.2 kg General appearance: PRESENT: other - inbtubated sedated Respiratory exam: PRESENT: clear to auscultation merissa - clear bilateral, inproved bs on left., other - chest tube without airleak. draining serous fluid Cardiovascular exam: PRESENT: tachycardia - tachy to 100-115 GI/Abdominal exam: PRESENT: other - abd soft, drainage from left sided tamara, serous. no evidence of enteric contents. chest tube serous, no leak. Extremities exam: PRESENT: +2 edema Results Laboratory Results: 10/29/18 05:05 10/28/18 10/28/18 10/28/18 10:16 10:16 10:16 WBC 20.4 H RBC 3.65 L Hgb 10.3 L Hct 32.9 L MCV 90 MCH 28.1 MCHC 31.2 L RDW 15.1 H Plt Count 451 H Seg Neutrophils % Not Reportable Lymphocytes % Not Reportable Monocytes % Not Reportable Eosinophils % Not Reportable Basophils % Not Reportable Absolute Neutrophils Not Reportable Absolute Lymphocytes Not Reportable Absolute Monocytes Not Reportable Absolute Eosinophils Not Reportable Absolute Basophils Not Reportable Carbonic Acid HCO3/H2CO3 Ratio ABG pH ABG pCO2 ABG pO2 ABG HCO3 ABG O2 Saturation ABG Base Excess FiO2 Sodium 141.7 Potassium 5.2 H Chloride 104 Carbon Dioxide 20 L Anion Gap 18 BUN 66 H Creatinine 4.96 H Est GFR ( Amer) 15 L Est GFR (Non-Af Amer) 12 L Glucose 180 H Uric Acid 24.5 H Calcium 6.0 L* Phosphorus Magnesium Total Bilirubin AST ALT Alkaline Phosphatase Total Protein Albumin Prealbumin Blood Type Antibody Screen 10/28/18 10/28/18 10/28/18 10:16 10:45 12:30 WBC RBC Hgb Hct MCV MCH MCHC RDW Plt Count Seg Neutrophils % Lymphocytes % Monocytes % Eosinophils % Basophils % Absolute Neutrophils Absolute Lymphocytes Absolute Monocytes Absolute Eosinophils Absolute Basophils Carbonic Acid 1.37 H HCO3/H2CO3 Ratio 14:1 ABG pH 7.26 L ABG pCO2 45.6 H ABG pO2 112.8 H ABG HCO3 19.9 L ABG O2 Saturation 97.5 ABG Base Excess -7.0 FiO2 50% Sodium Potassium Chloride Carbon Dioxide Anion Gap BUN Creatinine Est GFR ( Amer) Est GFR (Non-Af Amer) Glucose Uric Acid Calcium Phosphorus Magnesium Total Bilirubin AST ALT Alkaline Phosphatase Total Protein 4.9 L Albumin Prealbumin Blood Type O POSITIVE Antibody Screen NEGATIVE 10/28/18 10/28/18 10/29/18 14:25 22:40 05:05 WBC RBC Hgb Hct MCV MCH MCHC RDW Plt Count Seg Neutrophils % Lymphocytes % Monocytes % Eosinophils % Basophils % Absolute Neutrophils Absolute Lymphocytes Absolute Monocytes Absolute Eosinophils Absolute Basophils Carbonic Acid 0.98 L 0.94 L HCO3/H2CO3 Ratio 17:1 13:1 ABG pH 7.35 7.24 L ABG pCO2 32.7 L 31.1 L ABG pO2 146.8 H 143.3 H ABG HCO3 17.6 L 13.0 L ABG O2 Saturation 98.8 H 98.5 H ABG Base Excess -7.1 -13.2 FiO2 50% 50% Sodium Potassium Chloride Carbon Dioxide Anion Gap BUN Creatinine Est GFR ( Amer) Est GFR (Non-Af Amer) Glucose Uric Acid 6.1 D Calcium Phosphorus 14.0 H Magnesium 2.2 Total Bilirubin 0.5 AST 151 H ALT 30 Alkaline Phosphatase 105 Total Protein 3.9 L Albumin 2.0 L Prealbumin 4.0 L Blood Type Antibody Screen 10/29/18 10/29/18 05:05 05:05 WBC RBC Hgb Hct MCV MCH MCHC RDW Plt Count Seg Neutrophils % Lymphocytes % Monocytes % Eosinophils % Basophils % Absolute Neutrophils Absolute Lymphocytes Absolute Monocytes Absolute Eosinophils Absolute Basophils Carbonic Acid 0.96 L HCO3/H2CO3 Ratio 16:1 ABG pH 7.32 L ABG pCO2 31.8 L ABG pO2 105.9 H ABG HCO3 16.0 L ABG O2 Saturation 97.5 ABG Base Excess -9.1 FiO2 30% Sodium 138.8 Potassium 7.4 H* D Chloride 109 H Carbon Dioxide 17 L Anion Gap 13 BUN 69 H Creatinine 5.59 H Est GFR ( Amer) 13 L Est GFR (Non-Af Amer) 11 L Glucose 203 H Uric Acid Calcium 5.4 L* Phosphorus Magnesium Total Bilirubin AST ALT Alkaline Phosphatase Total Protein Albumin Prealbumin Blood Type Antibody Screen 10/28/18 10/28/18 10/28/18 03:05 03:05 10:16 Creatine Kinase 104 100 CK-MB (CK-2) 1.00 Troponin I 0.013 10/28/18 10/28/18 10/28/18 10:16 15:40 16:09 Creatine Kinase 72 CK-MB (CK-2) 0.90 0.52 Troponin I 0.012 0.015 10/28/18 10/28/18 10/29/18 22:40 22:40 05:05 Creatine Kinase 95 165 CK-MB (CK-2) 1.14 Troponin I 0.018 10/29/18 05:20 Creatine Kinase CK-MB (CK-2) 1.81 Troponin I 0.028 Impressions: Abdomen/Pelvis CT 10/28/18 00:00 IMPRESSION: Decrease in size of the oral contrast collection along the left upper quadrant related to the known gastric leak. The drainage catheter in the aspect of the left upper quadrant has a small pocket of oral contrast adjacent to it with the bulk of the contrast collection noted more posteriorly and separate from the smaller anterior collection. Grossly stable peripancreatic fluid collection. Enlarging left pleural effusion which is now large. Development of a small left pleural effusion. Persistent large amount of ascites. Interstitial thickening with scattered groundglass opacities within the lungs. TECHNICAL DOCUMENTATION: Quality ID # [id number]: Final reports with documentation of one or more dose reduction techniques (e.g., Automated exposure control, adjustment of the mA and/or kV according to patient size, use of iterative reconstruction technique) copyright 2011 [employer]- All Rights Reserved Chest CT 10/28/18 00:00 IMPRESSION: Decrease in size of the oral contrast collection along the left upper quadrant related to the known gastric leak. The drainage catheter in the aspect of the left upper quadrant has a small pocket of oral contrast adjacent to it with the bulk of the contrast collection noted more posteriorly and separate from the smaller anterior collection. Grossly stable peripancreatic fluid collection. Enlarging left pleural effusion which is now large. Development of a small left pleural effusion. Persistent large amount of ascites. Interstitial thickening with scattered groundglass opacities within the lungs. TECHNICAL DOCUMENTATION: Quality ID # [id number]: Final reports with documentation of one or more dose reduction techniques (e.g., Automated exposure control, adjustment of the mA and/or kV according to patient size, use of iterative reconstruction technique) copyright 2011 [employer]- All Rights Reserved Chest X-Ray 10/29/18 06:00 IMPRESSION: No change. 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 pt responds to family noted to be hyperkalemic this am K+ + 7.4, creat 5.6 other labs pending cxr appears improved, with resolution of left effusion plan- dialysis today will discuss vent management with pulmonary and chemo rx with oncology.
[2018-10-29] MEDS ORDERED: INSULIN REG, HUMAN 100 UNIT/ML 3 ML VIAL (PYX) IV ONE (08:00)
[2018-10-29 08:11] LABS: ABSOLUTE LYMPHOCYTES# (MANUAL) 0.4 10^3/uL (0.5-4.7); ABSOLUTE MONOCYTES # (MANUAL) 0.1 10^3/uL (0.1-1.4); ABSOLUTE NEUTROPHILS# (MANUAL) 14.3 10^3/uL (1.7-8.2); BAND NEUTROPHILS % (MANUAL) 2 % (3-5); BASOPHILS % (MANUAL) 0 % (0-2); EOSINOPHILS % (MANUAL) 0 % (0-6); LYMPHOCYTES % (MANUAL) 3 % (13-45); MONOCYTES % (MANUAL) 1 % (3-13); SEGMENTED NEUTROPHILS % (MAN) 94 % (42-78); TOTAL CELLS COUNTED 100
[2018-10-29 08:13] LABS: HYPOCHROMASIA 1+; OVALOCYTES 2+; PLATELET COMMENT ADEQUATE; POIKILOCYTOSIS 2+; POLYCHROMASIA 1+; TOXIC GRANULATION SLIGHT
[2018-10-29] MEDS: ALLOPURINOL 100 MG TABLET NG SCH (08:15)
[2018-10-29] MEDS: NORMAL SALINE 1000 ML 1,000 ML IV PRN ×2 (08:15→17:16)
--- NOTE | 2018-10-29 08:33 | PDOC PROGRESS REPORT ---
Subjective Progress Note for:: 10/29/18 Subjective:: Yesterday patient had an eventful day, he had acute respiratory distress, hypotension, poor urine output, was taken emergently to the OR prior to that he was electively intubated, reviewed the OR note, there is no purulent areas, he is currently intubated sedated on pressors. He has had dialysis catheter as well as central venous catheter placed. He is about to start on dialysis today. Reason For Visit: LYMPHOMA,HYPERKALEMIA Physical Exam Vital Signs: Temp Pulse Resp BP Pulse Ox 97.6 F 115 H 10 L 109/68 98 10/29/18 04:00 10/28/18 20:00 10/29/18 07:11 10/29/18 07:11 10/29/18 08:22 Intake & Output 10/28/18 10/29/18 10/30/18 06:59 06:59 06:59 Intake Total 2397 7497 158 Output Total 220 1995 Balance 2177 5502 158 Weight 97.2 kg 99.3 kg General appearance: PRESENT: no acute distress Mouth exam: PRESENT: dry mucosa Respiratory exam: PRESENT: clear to auscultation merissa. ABSENT: rales, rhonchi, wheezes GI/Abdominal exam: PRESENT: ascites Rectal exam: PRESENT: deferred Neurological exam: PRESENT: other - Intubated, sedated Results Laboratory Results: 10/29/18 05:05 10/29/18 05:05 10/28/18 10/28/18 10/28/18 10:16 10:16 10:16 WBC 20.4 H RBC 3.65 L Hgb 10.3 L Hct 32.9 L MCV 90 MCH 28.1 MCHC 31.2 L RDW 15.1 H Plt Count 451 H Seg Neutrophils % Not Reportable Lymphocytes % Not Reportable Monocytes % Not Reportable Eosinophils % Not Reportable Basophils % Not Reportable Absolute Neutrophils Not Reportable Absolute Lymphocytes Not Reportable Absolute Monocytes Not Reportable Absolute Eosinophils Not Reportable Absolute Basophils Not Reportable Carbonic Acid HCO3/H2CO3 Ratio ABG pH ABG pCO2 ABG pO2 ABG HCO3 ABG O2 Saturation ABG Base Excess FiO2 Sodium 141.7 Potassium 5.2 H Chloride 104 Carbon Dioxide 20 L Anion Gap 18 BUN 66 H Creatinine 4.96 H Est GFR ( Amer) 15 L Est GFR (Non-Af Amer) 12 L Glucose 180 H Uric Acid 24.5 H Calcium 6.0 L* Phosphorus Magnesium Total Bilirubin AST ALT Alkaline Phosphatase Total Protein Albumin Prealbumin Blood Type Antibody Screen 10/28/18 10/28/18 10/28/18 10:16 10:45 12:30 WBC RBC Hgb Hct MCV MCH MCHC RDW Plt Count Seg Neutrophils % Lymphocytes % Monocytes % Eosinophils % Basophils % Absolute Neutrophils Absolute Lymphocytes Absolute Monocytes Absolute Eosinophils Absolute Basophils Carbonic Acid 1.37 H HCO3/H2CO3 Ratio 14:1 ABG pH 7.26 L ABG pCO2 45.6 H ABG pO2 112.8 H ABG HCO3 19.9 L ABG O2 Saturation 97.5 ABG Base Excess -7.0 FiO2 50% Sodium Potassium Chloride Carbon Dioxide Anion Gap BUN Creatinine Est GFR ( Amer) Est GFR (Non-Af Amer) Glucose Uric Acid Calcium Phosphorus Magnesium Total Bilirubin AST ALT Alkaline Phosphatase Total Protein 4.9 L Albumin Prealbumin Blood Type O POSITIVE Antibody Screen NEGATIVE 10/28/18 10/28/18 10/29/18 14:25 22:40 05:05 WBC RBC Hgb Hct MCV MCH MCHC RDW Plt Count Seg Neutrophils % Lymphocytes % Monocytes % Eosinophils % Basophils % Absolute Neutrophils Absolute Lymphocytes Absolute Monocytes Absolute Eosinophils Absolute Basophils Carbonic Acid 0.98 L 0.94 L HCO3/H2CO3 Ratio 17:1 13:1 ABG pH 7.35 7.24 L ABG pCO2 32.7 L 31.1 L ABG pO2 146.8 H 143.3 H ABG HCO3 17.6 L 13.0 L ABG O2 Saturation 98.8 H 98.5 H ABG Base Excess -7.1 -13.2 FiO2 50% 50% Sodium Potassium Chloride Carbon Dioxide Anion Gap BUN Creatinine Est GFR ( Amer) Est GFR (Non-Af Amer) Glucose Uric Acid 6.1 D Calcium Phosphorus 14.0 H Magnesium 2.2 Total Bilirubin 0.5 AST 151 H ALT 30 Alkaline Phosphatase 105 Total Protein 3.9 L Albumin 2.0 L Prealbumin 4.0 L Blood Type Antibody Screen 10/29/18 10/29/18 10/29/18 05:05 05:05 05:05 WBC 14.9 H RBC 2.87 L Hgb 8.1 L D Hct 25.9 L MCV 90 MCH 28.1 MCHC 31.2 L RDW 15.1 H Plt Count 353 Seg Neutrophils % Not Reportable Lymphocytes % Not Reportable Monocytes % Not Reportable Eosinophils % Not Reportable Basophils % Not Reportable Absolute Neutrophils Not Reportable Absolute Lymphocytes Not Reportable Absolute Monocytes Not Reportable Absolute Eosinophils Not Reportable Absolute Basophils Not Reportable Carbonic Acid 0.96 L HCO3/H2CO3 Ratio 16:1 ABG pH 7.32 L ABG pCO2 31.8 L ABG pO2 105.9 H ABG HCO3 16.0 L ABG O2 Saturation 97.5 ABG Base Excess -9.1 FiO2 30% Sodium 138.8 Potassium 7.4 H* D Chloride 109 H Carbon Dioxide 17 L Anion Gap 13 BUN 69 H Creatinine 5.59 H Est GFR ( Amer) 13 L Est GFR (Non-Af Amer) 11 L Glucose 203 H Uric Acid Calcium 5.4 L* Phosphorus Magnesium Total Bilirubin AST ALT Alkaline Phosphatase Total Protein Albumin Prealbumin Blood Type Antibody Screen 10/28/18 10/28/18 10/28/18 03:05 03:05 10:16 Creatine Kinase 104 100 CK-MB (CK-2) 1.00 Troponin I 0.013 10/28/18 10/28/18 10/28/18 10:16 15:40 16:09 Creatine Kinase 72 CK-MB (CK-2) 0.90 0.52 Troponin I 0.012 0.015 10/28/18 10/28/18 10/29/18 22:40 22:40 05:05 Creatine Kinase 95 165 CK-MB (CK-2) 1.14 Troponin I 0.018 10/29/18 05:20 Creatine Kinase CK-MB (CK-2) 1.81 Troponin I 0.028 Impressions: Abdomen/Pelvis CT 10/28/18 00:00 IMPRESSION: Decrease in size of the oral contrast collection along the left upper quadrant related to the known gastric leak. The drainage catheter in the aspect of the left upper quadrant has a small pocket of oral contrast adjacent to it with the bulk of the contrast collection noted more posteriorly and separate from the smaller anterior collection. Grossly stable peripancreatic fluid collection. Enlarging left pleural effusion which is now large. Development of a small left pleural effusion. Persistent large amount of ascites. Interstitial thickening with scattered groundglass opacities within the lungs. TECHNICAL DOCUMENTATION: Quality ID # [id number]: Final reports with documentation of one or more dose reduction techniques (e.g., Automated exposure control, adjustment of the mA and/or kV according to patient size, use of iterative reconstruction technique) copyright 2010 [employer]- All Rights Reserved Chest CT 10/28/18 00:00 IMPRESSION: Decrease in size of the oral contrast collection along the left upper quadrant related to the known gastric leak. The drainage catheter in the aspect of the left upper quadrant has a small pocket of oral contrast adjacent to it with the bulk of the contrast collection noted more posteriorly and separate from the smaller anterior collection. Grossly stable peripancreatic fluid collection. Enlarging left pleural effusion which is now large. Development of a small left pleural effusion. Persistent large amount of ascites. Interstitial thickening with scattered groundglass opacities within the lungs. TECHNICAL DOCUMENTATION: Quality ID # [id number]: Final reports with documentation of one or more dose reduction techniques (e.g., Automated exposure control, adjustment of the mA and/or kV according to patient size, use of iterative reconstruction technique) copyright 2010 [employer]- All Rights Reserved Chest X-Ray 10/29/18 06:00 IMPRESSION: No change. 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 We will initiate therapy today. (2) Acute kidney injury Is this a current diagnosis for this admission?: Yes Plan: Plan for hemodialysis but I discussed his case extensively with Dr. Granados who says he may need [facility], unfortunately we do not have that service any longer here. We will need to consider transfer to [place]. (3) Hyperkalemia Is this a current diagnosis for this admission?: Yes Plan: Dialysis initiation today (4) Acute abdominal pain Is this a current diagnosis for this admission?: Yes Plan: Continue as needed with pain control (5) Abdominal infection Is this a current diagnosis for this admission?: Yes Plan: Continue with antibiotics - Time Time Spent with patient: 35 or more minutes Disposition: Today had a long discussion with family - Inpatient Certification Based on my medical assessment, after consideration of the patient's comorbidities, presenting symptoms, or acuity I expect that the services needed warrant INPATIENT care.: Yes I certify that my determination is in accordance with my understanding of Medicare's requirements for reasonable and necessary INPATIENT services [42 CFR 412.3e].: Yes Medical Necessity: Need For Continuous Telemetry Monitoring, Need for Nebulizer Therapy and Monitoring of Response, Need for Pain Control, Need for Surgery, Risk of Complication if Not Cared For in Hospital
--- NOTE | 2018-10-29 08:54 | PDOC PROGRESS REPORT ---
Subjective Progress Note for:: 10/29/18 Subjective:: The patient is intubated and sedated. He is presently being dialyzed. Long discussion with all the consultants. The patient will require CVVH and the service that were not providing he needs to be transferred to [place]. The oncologist is making arrangements with the [facility] services. Long discussion with the . Explained to her that this is the service that is no longer available at this hospital and the patient will need to be transferred Reason For Visit: LYMPHOMA,HYPERKALEMIA Physical Exam Vital Signs: Temp Pulse Resp BP Pulse Ox 101.6 F H 119 H 23 H 123/62 98 10/29/18 08:00 10/29/18 08:00 10/29/18 08:00 10/29/18 08:00 10/29/18 08:22 Intake & Output 10/28/18 10/29/18 10/30/18 06:59 06:59 06:59 Intake Total 2397 7497 158 Output Total 220 1995 0 Balance 2177 5502 158 Weight 97.2 kg 99.3 kg General appearance: PRESENT: severe distress Head exam: PRESENT: atraumatic Eye exam: PRESENT: conjunctival injection Neck exam: ABSENT: carotid bruit, JVD Respiratory exam: PRESENT: crackles, rhonchi Cardiovascular exam: PRESENT: +S1, +S2, tachycardia GI/Abdominal exam: PRESENT: soft, tenderness Extremities exam: PRESENT: tenderness Results Laboratory Results: 10/29/18 05:05 10/29/18 05:05 10/28/18 10/28/18 10/28/18 10:16 10:16 10:16 WBC 20.4 H RBC 3.65 L Hgb 10.3 L Hct 32.9 L MCV 90 MCH 28.1 MCHC 31.2 L RDW 15.1 H Plt Count 451 H Seg Neutrophils % Not Reportable Lymphocytes % Not Reportable Monocytes % Not Reportable Eosinophils % Not Reportable Basophils % Not Reportable Absolute Neutrophils Not Reportable Absolute Lymphocytes Not Reportable Absolute Monocytes Not Reportable Absolute Eosinophils Not Reportable Absolute Basophils Not Reportable Carbonic Acid HCO3/H2CO3 Ratio ABG pH ABG pCO2 ABG pO2 ABG HCO3 ABG O2 Saturation ABG Base Excess FiO2 Sodium 141.7 Potassium 5.2 H Chloride 104 Carbon Dioxide 20 L Anion Gap 18 BUN 66 H Creatinine 4.96 H Est GFR ( Amer) 15 L Est GFR (Non-Af Amer) 12 L Glucose 180 H Uric Acid 24.5 H Calcium 6.0 L* Phosphorus Magnesium Total Bilirubin AST ALT Alkaline Phosphatase Total Protein Albumin Prealbumin Blood Type Antibody Screen 10/28/18 10/28/18 10/28/18 10:16 10:45 12:30 WBC RBC Hgb Hct MCV MCH MCHC RDW Plt Count Seg Neutrophils % Lymphocytes % Monocytes % Eosinophils % Basophils % Absolute Neutrophils Absolute Lymphocytes Absolute Monocytes Absolute Eosinophils Absolute Basophils Carbonic Acid 1.37 H HCO3/H2CO3 Ratio 14:1 ABG pH 7.26 L ABG pCO2 45.6 H ABG pO2 112.8 H ABG HCO3 19.9 L ABG O2 Saturation 97.5 ABG Base Excess -7.0 FiO2 50% Sodium Potassium Chloride Carbon Dioxide Anion Gap BUN Creatinine Est GFR ( Amer) Est GFR (Non-Af Amer) Glucose Uric Acid Calcium Phosphorus Magnesium Total Bilirubin AST ALT Alkaline Phosphatase Total Protein 4.9 L Albumin Prealbumin Blood Type O POSITIVE Antibody Screen NEGATIVE 10/28/18 10/28/18 10/29/18 14:25 22:40 05:05 WBC RBC Hgb Hct MCV MCH MCHC RDW Plt Count Seg Neutrophils % Lymphocytes % Monocytes % Eosinophils % Basophils % Absolute Neutrophils Absolute Lymphocytes Absolute Monocytes Absolute Eosinophils Absolute Basophils Carbonic Acid 0.98 L 0.94 L HCO3/H2CO3 Ratio 17:1 13:1 ABG pH 7.35 7.24 L ABG pCO2 32.7 L 31.1 L ABG pO2 146.8 H 143.3 H ABG HCO3 17.6 L 13.0 L ABG O2 Saturation 98.8 H 98.5 H ABG Base Excess -7.1 -13.2 FiO2 50% 50% Sodium Potassium Chloride Carbon Dioxide Anion Gap BUN Creatinine Est GFR ( Amer) Est GFR (Non-Af Amer) Glucose Uric Acid 6.1 D Calcium Phosphorus 14.0 H Magnesium 2.2 Total Bilirubin 0.5 AST 151 H ALT 30 Alkaline Phosphatase 105 Total Protein 3.9 L Albumin 2.0 L Prealbumin 4.0 L Blood Type Antibody Screen 10/29/18 10/29/18 10/29/18 05:05 05:05 05:05 WBC 14.9 H RBC 2.87 L Hgb 8.1 L D Hct 25.9 L MCV 90 MCH 28.1 MCHC 31.2 L RDW 15.1 H Plt Count 353 Seg Neutrophils % Not Reportable Lymphocytes % Not Reportable Monocytes % Not Reportable Eosinophils % Not Reportable Basophils % Not Reportable Absolute Neutrophils Not Reportable Absolute Lymphocytes Not Reportable Absolute Monocytes Not Reportable Absolute Eosinophils Not Reportable Absolute Basophils Not Reportable Carbonic Acid 0.96 L HCO3/H2CO3 Ratio 16:1 ABG pH 7.32 L ABG pCO2 31.8 L ABG pO2 105.9 H ABG HCO3 16.0 L ABG O2 Saturation 97.5 ABG Base Excess -9.1 FiO2 30% Sodium 138.8 Potassium 7.4 H* D Chloride 109 H Carbon Dioxide 17 L Anion Gap 13 BUN 69 H Creatinine 5.59 H Est GFR ( Amer) 13 L Est GFR (Non-Af Amer) 11 L Glucose 203 H Uric Acid Calcium 5.4 L* Phosphorus Magnesium Total Bilirubin AST ALT Alkaline Phosphatase Total Protein Albumin Prealbumin Blood Type Antibody Screen 10/28/18 10/28/18 10/28/18 03:05 03:05 10:16 Creatine Kinase 104 100 CK-MB (CK-2) 1.00 Troponin I 0.013 10/28/18 10/28/18 10/28/18 10:16 15:40 16:09 Creatine Kinase 72 CK-MB (CK-2) 0.90 0.52 Troponin I 0.012 0.015 10/28/18 10/28/18 10/29/18 22:40 22:40 05:05 Creatine Kinase 95 165 CK-MB (CK-2) 1.14 Troponin I 0.018 10/29/18 05:20 Creatine Kinase CK-MB (CK-2) 1.81 Troponin I 0.028 Impressions: Abdomen/Pelvis CT 10/28/18 00:00 IMPRESSION: Decrease in size of the oral contrast collection along the left upper quadrant related to the known gastric leak. The drainage catheter in the aspect of the left upper quadrant has a small pocket of oral contrast adjacent to it with the bulk of the contrast collection noted more posteriorly and separate from the smaller anterior collection. Grossly stable peripancreatic fluid collection. Enlarging left pleural effusion which is now large. Development of a small left pleural effusion. Persistent large amount of ascites. Interstitial thickening with scattered groundglass opacities within the lungs. TECHNICAL DOCUMENTATION: Quality ID # [id number]: Final reports with documentation of one or more dose reduction techniques (e.g., Automated exposure control, adjustment of the mA and/or kV according to patient size, use of iterative reconstruction technique) copyright 2010 [employer]- All Rights Reserved Chest CT 10/28/18 00:00 IMPRESSION: Decrease in size of the oral contrast collection along the left upper quadrant related to the known gastric leak. The drainage catheter in the aspect of the left upper quadrant has a small pocket of oral contrast adjacent to it with the bulk of the contrast collection noted more posteriorly and separate from the smaller anterior collection. Grossly stable peripancreatic fluid collection. Enlarging left pleural effusion which is now large. Development of a small left pleural effusion. Persistent large amount of ascites. Interstitial thickening with scattered groundglass opacities within the lungs. TECHNICAL DOCUMENTATION: Quality ID # [id number]: Final reports with documentation of one or more dose reduction techniques (e.g., Automated exposure control, adjustment of the mA and/or kV according to patient size, use of iterative reconstruction technique) copyright 2010 [employer]- All Rights Reserved Chest X-Ray 10/29/18 06:00 IMPRESSION: No change. 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 Is this a current diagnosis for this admission?: Yes Plan: Will receive another chemotherapy treatment right after dialysis (2) Acute abdominal pain Is this a current diagnosis for this admission?: Yes (3) NIDDY (non-insulin dependent diabetes mellitus in young) Is this a current diagnosis for this admission?: Yes (4) Hypertension Qualifiers: Hypertension type: essential hypertension Qualified Code(s): I10 - Essential (primary) hypertension Is this a current diagnosis for this admission?: Yes (5) Anemia Qualifiers: Anemia type: unspecified type Qualified Code(s): D64.9 - Anemia, unspecified Is this a current diagnosis for this admission?: Yes (6) Leukocytosis Qualifiers: Leukocytosis type: unspecified Qualified Code(s): D72.829 - Elevated white blood cell count, unspecified Is this a current diagnosis for this admission?: Yes (7) Pancreatic mass Is this a current diagnosis for this admission?: Yes (8) Acute renal failure Is this a current diagnosis for this admission?: Yes Plan: Presently receiving dialysis (9) Pleural effusion associated with pulmonary infection Is this a current diagnosis for this admission?: Yes Plan: Status post chest tube (10) Diabetes mellitus Qualifiers: Diabetes mellitus type: type 2 Is this a current diagnosis for this admission?: Yes Plan: We will continue current treatment (11) Hypovolemic shock Is this a current diagnosis for this admission?: Yes Plan: Presently on pressors continue current treatment (12) Acute kidney injury Is this a current diagnosis for this admission?: Yes Plan: We will continue dialysis because of anuria (13) Anuria Is this a current diagnosis for this admission?: Yes Plan: Most probably after the chemo treatment with lysis. We will continue hemodialysis
--- NOTE | 2018-10-29 09:02 | Operative Report ---
Operative Report DATE OF SURGERY: 10/28/18 PREOPERATIVE DIAGNOSIS: 1. Acute renal failure. 2. Gastrointestinal dysfunct ion. 3. Lymphoma. POSTOPERATIVE DIAGNOSIS: 1. Acute renal failure. 2. Gastrointestinal dysfunction. 3. Lymphoma. OPERATION: 1. Ultrasound evaluation of the right femoral vein. 2. Insertion of temporary hemodialysis catheter via right femoral vein under real-time ultrasound guidance. SURGEON: CIPRIANO HERBERT MACHINE PROGRAMMER: None. ANESTHESIA: LMAC TISSUE REMOVED OR ALTERED: None. COMPLICATIONS: None. ESTIMATED BLOOD LOSS: 5 mL. INTRAOPERATIVE FINDINGS: Of a satisfactory right femoral vein, satisfactory access. Easy egress of blood and ingress of heparinized solution through all 3 ports. PROCEDURE: After obtaining informed consent, the patient was positioned supine in the operating room. The right groin and adjacent areas were prepared with chlorhexidine and draped out with sterile linen. After the universal timeout the procedure commenced. A steriley sheathed ultrasound probe was used to evaluate the [right femoral vein]. Local anesthesia was infiltrated adjacent to the probe. Access into the right femoral was accomplished using a micropuncture needle followed, by micropuncture wire and then with a micropuncture catheter. This was followed by introduction of a 0.035 guidewire, the skin opening was enlarged slightly, serially larger dilators were now placed followed by introduction of a triaysis catheter. All of these transitions were smooth. Each lumen was aspirated of blood and irrigated with heparinized solution. The catheter was now sutured to the skin using 3-0 nylon. A Bio A patch was now applied, followed by sterile dressings. Caps were placed on the end of the each of the lumens. The procedure concluded. Copies dictated operative report to Dr. Cipriano Eugene MD.
[2018-10-29] MEDS: PANTOPRAZOLE SODIUM 40 MG VIAL IV SCH (09:31)
[2018-10-29] MEDS: FLUCONAZOLE 200 MG/NS RTU 200 MG/100 ML RTUPB IV SCH (09:32)
[2018-10-29] MEDS: NORMAL SALINE IV ONE (11:15)
[2018-10-29] MEDS: RASBURICASE IV ONE (11:15)
--- NOTE | 2018-10-29 11:47 | PDOC PROGRESS REPORT ---
Subjective Progress Note for:: 10/29/18 Reason For Visit: Patient underwent redo ex lap yesterday by Dr. Solis and had a peritoneal washout. He is currently in the ICU intubated and sedated. He is currently undergoing hemodialysis.Discussions were done with Dr. Vargas as well as the treating nurse.Patient is in septic shock and is on double pressors.He is anuric and labs on review shows potassium climbing up to 7.4. His BUN/creatinine is also getting higher. He got rasburicase yesterday and his uric acid is dropped from 24-6 this morning.He is showing other features of tumor lysis as per labs including hemolysis. Review of dialysis process reveals that it is going to be difficult to extract fluid for obvious reasons. He is already showing features of severe vasoconstriction as seen by his cold extremities that is turning cyanotic which is probably a combination of his septic stage as well as the pressor agents. Physical Exam Vital Signs: Temp Pulse Resp BP Pulse Ox 100.8 F H 110 H 15 87/52 L 96 10/29/18 10:00 10/29/18 10:00 10/29/18 10:41 10/29/18 10:41 10/29/18 10:41 Intake & Output 10/28/18 10/29/18 10/30/18 06:59 06:59 06:59 Intake Total 2397 7497 618 Output Total 220 1995 0 Balance 2177 5502 618 Weight 97.2 kg 99.3 kg Exam: Patient remains intubated and sedated. Respiratory exam: PRESENT: clear to auscultation merissa, crackles, decreased breath sounds Cardiovascular exam: PRESENT: +S1, +S2 GI/Abdominal exam: PRESENT: ascites, soft. ABSENT: normal bowel sounds, organomegaly, tenderness Extremities exam: PRESENT: pedal edema - /Anasarca Neurological exam: PRESENT: altered - He is intubated and sedated. Skin exam: PRESENT: cyanosis - Early cyanosis on cold digits of both upper and lower extremities.. ABSENT: erythema, mottled, rash Results Laboratory Results: 10/29/18 05:05 10/29/18 05:05 10/28/18 10/28/18 10/28/18 10:16 12:30 14:25 WBC RBC Hgb Hct MCV MCH MCHC RDW Plt Count Seg Neutrophils % Lymphocytes % Monocytes % Eosinophils % Basophils % Absolute Neutrophils Absolute Lymphocytes Absolute Monocytes Absolute Eosinophils Absolute Basophils Carbonic Acid 0.98 L HCO3/H2CO3 Ratio 17:1 ABG pH 7.35 ABG pCO2 32.7 L ABG pO2 146.8 H ABG HCO3 17.6 L ABG O2 Saturation 98.8 H ABG Base Excess -7.1 FiO2 50% Sodium Potassium Chloride Carbon Dioxide Anion Gap BUN Creatinine Est GFR ( Amer) Est GFR (Non-Af Amer) Glucose Uric Acid 24.5 H Calcium Phosphorus Magnesium Total Bilirubin AST ALT Alkaline Phosphatase Total Protein Albumin Prealbumin Blood Type O POSITIVE Antibody Screen NEGATIVE 10/28/18 10/29/18 10/29/18 22:40 05:05 05:05 WBC RBC Hgb Hct MCV MCH MCHC RDW Plt Count Seg Neutrophils % Lymphocytes % Monocytes % Eosinophils % Basophils % Absolute Neutrophils Absolute Lymphocytes Absolute Monocytes Absolute Eosinophils Absolute Basophils Carbonic Acid 0.94 L 0.96 L HCO3/H2CO3 Ratio 13:1 16:1 ABG pH 7.24 L 7.32 L ABG pCO2 31.1 L 31.8 L ABG pO2 143.3 H 105.9 H ABG HCO3 13.0 L 16.0 L ABG O2 Saturation 98.5 H 97.5 ABG Base Excess -13.2 -9.1 FiO2 50% 30% Sodium Potassium Chloride Carbon Dioxide Anion Gap BUN Creatinine Est GFR ( Amer) Est GFR (Non-Af Amer) Glucose Uric Acid 6.1 D Calcium Phosphorus 14.0 H Magnesium 2.2 Total Bilirubin 0.5 AST 151 H ALT 30 Alkaline Phosphatase 105 Total Protein 3.9 L Albumin 2.0 L Prealbumin 4.0 L Blood Type Antibody Screen 10/29/18 10/29/18 05:05 05:05 WBC 14.9 H RBC 2.87 L Hgb 8.1 L D Hct 25.9 L MCV 90 MCH 28.1 MCHC 31.2 L RDW 15.1 H Plt Count 353 Seg Neutrophils % Not Reportable Lymphocytes % Not Reportable Monocytes % Not Reportable Eosinophils % Not Reportable Basophils % Not Reportable Absolute Neutrophils Not Reportable Absolute Lymphocytes Not Reportable Absolute Monocytes Not Reportable Absolute Eosinophils Not Reportable Absolute Basophils Not Reportable Carbonic Acid HCO3/H2CO3 Ratio ABG pH ABG pCO2 ABG pO2 ABG HCO3 ABG O2 Saturation ABG Base Excess FiO2 Sodium 138.8 Potassium 7.4 H* D Chloride 109 H Carbon Dioxide 17 L Anion Gap 13 BUN 69 H Creatinine 5.59 H Est GFR ( Amer) 13 L Est GFR (Non-Af Amer) 11 L Glucose 203 H Uric Acid Calcium 5.4 L* Phosphorus Magnesium Total Bilirubin AST ALT Alkaline Phosphatase Total Protein Albumin Prealbumin Blood Type Antibody Screen 10/28/18 10/28/18 10/28/18 03:05 03:05 10:16 Creatine Kinase 104 100 CK-MB (CK-2) 1.00 Troponin I 0.013 10/28/18 10/28/18 10/28/18 10:16 15:40 16:09 Creatine Kinase 72 CK-MB (CK-2) 0.90 0.52 Troponin I 0.012 0.015 10/28/18 10/28/18 10/29/18 22:40 22:40 05:05 Creatine Kinase 95 165 CK-MB (CK-2) 1.14 Troponin I 0.018 10/29/18 05:20 Creatine Kinase CK-MB (CK-2) 1.81 Troponin I 0.028 Impressions: Abdomen/Pelvis CT 10/28/18 00:00 IMPRESSION: Decrease in size of the oral contrast collection along the left upper quadrant related to the known gastric leak. The drainage catheter in the aspect of the left upper quadrant has a small pocket of oral contrast adjacent to it with the bulk of the contrast collection noted more posteriorly and separate from the smaller anterior collection. Grossly stable peripancreatic fluid collection. Enlarging left pleural effusion which is now large. Development of a small left pleural effusion. Persistent large amount of ascites. Interstitial thickening with scattered groundglass opacities within the lungs. TECHNICAL DOCUMENTATION: Quality ID # 436: Final reports with documentation of one or more dose reduction techniques (e.g., Automated exposure control, adjustment of the mA and/or kV according to patient size, use of iterative reconstruction technique) copyright 2011 [employer]- All Rights Reserved Chest CT 10/28/18 00:00 IMPRESSION: Decrease in size of the oral contrast collection along the left upper quadrant related to the known gastric leak. The drainage catheter in the aspect of the left upper quadrant has a small pocket of oral contrast adjacent to it with the bulk of the contrast collection noted more posteriorly and separate from the smaller anterior collection. Grossly stable peripancreatic fluid collection. Enlarging left pleural effusion which is now large. Development of a small left pleural effusion. Persistent large amount of ascites. Interstitial thickening with scattered groundglass opacities within the lungs. TECHNICAL DOCUMENTATION: Quality ID # [id number]: Final reports with documentation of one or more dose reduction techniques (e.g., Automated exposure control, adjustment of the mA and/or kV according to patient size, use of iterative reconstruction technique) copyright 2011 [employer]- All Rights Reserved Chest X-Ray 10/29/18 06:00 IMPRESSION: No change. Assessment & Plan - Diagnosis (1) Septic shock Plan: Patient is in septic shock and is on double pressors.He is in complete anuric renal shutdown this is a combination of ATN septic shock/tumor lysis.Fortunately his uric acid responded to rasburicase with a drop from 24-6 this morning. However he has other features of hyper phosphatemia, hypocalcemia, hyperkalemia and high LDH indicative of the same. He is needs fluid resuscitation .Had lengthy discussion with Dr. Vargas/[facility] oncologist. He is going to administer the CHOP regimen given the fact that he needs to initiate his chemotherapy given the high probability of response to this. Obviously wants to start doing that along with a high steroids patient is going to cause a lot of the third spacing as well. This would necessitate being on CVVH and unfortunately since we do not have this procedure here in this hospital he would require being transferred to a different facility. (2) Hypotension Plan: Secondary to septic shock. He is currently on double pressors as mentioned earlier. (3) Abdominal infection Is this a current diagnosis for this admission?: Yes Plan: He is on antibiotics. Further plans as per surgicallist. (4) Acute kidney injury Is this a current diagnosis for this admission?: Yes Plan: Acute anuric renal shutdown from multiple factors. His potassium is high at 7.4 and undergoing hemodialysis as we speak. Is being supervised to ensure safe and smooth procedure.Blood pressure is tenuous in spite of double pressors. Therefore fluid extraction is going to be minimal but patient at the same time needs fluids given his septic shock state and severe vasodilatation as expected. Obviously he needs fluid resuscitation and therefore he would need CVVH in the long run. This is also going to be made worse for because of third spacing because of his progressive septic shock and the usage of steroids for his chemotherapy regimen. For all of these reasons patient would benefit from CVVH which we do not have here and hence would need to be transferred to a tertiary facility. (5) Anemia Qualifiers: Anemia type: unspecified type Qualified Code(s): D64.9 - Anemia, unspecified Is this a current diagnosis for this admission?: Yes Plan: Being managed by heme oncologist. 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 He is being initiated on R-CHOP regimen. (7) Tumor lysis syndrome Is this a current diagnosis for this admission?: Yes Plan: Labs confirmed it. He was given rasburicase and has had a markedly good response as seen by his dropping of uric acid from 24-6 this morning. This obviously can help his renal recovery in the long run hopefully. Continue on allopurinol otherwise. (8) Leukocytosis Qualifiers: Leukocytosis type: unspecified Qualified Code(s): D72.829 - Elevated white blood cell count, unspecified Is this a current diagnosis for this admission?: Yes Plan: His white count has dropped from around 20+ to 14 + as of this morning. (9) Type 2 diabetes mellitus Is this a current diagnosis for this admission?: Yes Plan: As per hospitalist. (10) Hypocalcemia Plan: From his tumor lysis. He has been administered multiple doses of IV calcium earlier this morning especially given his high potassium. We will also put him on a 3.5 calcium bath and he should respond to that as well. Needs close monitoring of this. (11) Hyperkalemia Is this a current diagnosis for this admission?: Yes Plan: Is more lithographic printing machinist labs came back with a potassium of 7.4. Appropriate immediate measures were instituted and patient has been begun on dialysis [facility] with a 1K bath for 2 hours followed by 2K bath around the 1/2 hours. Will monitor his potassiums an hour after he is done with dialysis. - Time Time with patient: Greater than 35 minutes - Total time spent with this patient was 40 minutes of which half the time was spent in counseling and coordinating care
[2018-10-29] MEDS ORDERED: NORMAL SALINE IV PRN ×2 (12:46→14:28)
[2018-10-29] MEDS ORDERED: CYCLOPHOSPHAMIDE IV PRN ×2 (12:46→14:28)
[2018-10-29] MEDS ORDERED: PALONOSETRON 0.25 MG/5 ML SDV IV PRN (12:47)
[2018-10-29] MEDS ORDERED: FOSAPREPITANT DIMEGLUMINE 150 MG in NORMAL SALINE 150 ML IV PRN (12:48)
[2018-10-29] MEDS ORDERED: METHYLPREDNISOLONE INJ 125 MG/2 ML SDV IV PRN (12:51)
[2018-10-29] MEDS ORDERED: VINCRISTINE SULFATE 2 MG in SYRINGE, DISPOSABLE, 1 EACH IV PRN (12:54)
[2018-10-29] MEDS ORDERED: DOXORUBICIN HCL IV PRN (12:55)
[2018-10-29] MEDS ORDERED: DISPOSABLE IV PRN (12:55)
[2018-10-29 12:57] LABS: CREATINE KINASE MB 1.28 ng/mL (<4.55); TROPONIN I 0.057 ng/mL
[2018-10-29 13:59] LABS: ANION GAP 11 (5-19); CARBON DIOXIDE 22 mmol/L (22-30); CHLORIDE 105 mmol/L (98-107); GLUCOSE 129 mg/dL (75-110); SODIUM 138.2 mmol/L (137-145)
[2018-10-29 14:15] LABS: BLOOD UREA NITROGEN 47 mg/dL (7-20); POTASSIUM 5.3 mmol/L (3.6-5.0)
[2018-10-29 14:16] LABS: CALCIUM 6.5 mg/dL (8.4-10.2)
[2018-10-29] MEDS ORDERED: DOXORUBICIN HCL 100 MG in SYRINGE, DISPOSABLE, 1 EACH IV PRN (14:29)
--- NOTE | 2018-10-29 17:25 | PDOC TRANSFER SUMMARY ---
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 Is this a current diagnosis for this admission?: Yes (2) Tumor lysis syndrome Is this a current diagnosis for this admission?: Yes (3) Pancreatic mass Is this a current diagnosis for this admission?: Yes (4) Acute renal failure Is this a current diagnosis for this admission?: Yes (5) Anuria Is this a current diagnosis for this admission?: Yes (6) Hyperkalemia Is this a current diagnosis for this admission?: Yes (9) Lymphoma Is this a current diagnosis for this admission?: Yes - Transfer Medications Home Medications: Allopurinol [Zyloprim 300 mg Tablet] 300 mg PO DAILY 10/25/18 Ciprofloxacin [Cipro] 5 ml PO Q12 10/25/18 Duloxetine HCl [Cymbalta] 60 mg PO DAILY 10/25/18 Insulin Degludec [Tresiba Flextouch U-100] 10 unit SQ QHS 10/25/18 Loratadine [Claritin 10 mg Tablet] 10 mg PO DAILY 10/25/18 Ondansetron [Zofran Odt 4 mg Tablet] 8 mg PO Q8HP PRN 10/25/18 Potassium Chloride [Klor-Con M20] 20 meq PO DAILY 10/25/18 Prednisone [Deltasone 20 mg Tablet] 100 mg PO DAILY 10/25/18 Promethazine HCl [Phenergan 25 mg Tablet] 25 mg PO Q4HP PRN 10/25/18 Transfer Medications: Current Medications Dextrose (Dextrose Inj 50% Syringe (25 Gm/50 Ml)) 25 gm IV PRN PRN; Protocol PRN Reason: PER PROTOCOL Stop: 11/24/18 09:14 Last Admin: 10/26/18 11:48 Dose: 25 gm Documented by: Glucagon (Glucagen Inj 1 Mg Vial) 1 mg IM PRN PRN; Protocol PRN Reason: Evaluate for BG < 70 Stop: 11/24/18 09:14 Glucose (Glutose 40% Gel 15 Gm Tube) 30 gm NG PRN PRN; Protocol PRN Reason: FOR BG < 50 IN ALERT PATIENT Stop: 11/24/18 09:14 Glucose (Glutose 40% Gel 15 Gm Tube) 15 gm NG PRN PRN; Protocol PRN Reason: FOR BG 50-69 IN ALERT PATIENT Stop: 11/24/18 09:14 Heparin Sodium (Porcine) (Heparin Inj 5,000 Units/Ml 1 Ml Syringe) 5,000 unit SUBCUT Q8 [facility] [place] Stop: 11/24/18 13:59 Last Admin: 10/29/18 13:25 Dose: 5,000 unit Documented by: Fluconazole/Sodium Chloride (Diflucan Rtu 200 Mg/Ns 100 Ml Premix) 200 mg in 100 mls @ 100 mls/hr IV DAILY [facility] [place] Stop: 11/02/18 11:59 Last Infusion: 10/29/18 11:16 Dose: Infused Documented by: Sodium Chloride (Nacl 0.9% 1000 Ml Iv Soln) 1,000 mls @ 100 mls/hr IV CONTINUOUS PRN PRN Reason: THIS MED IS NOT "PRN" Stop: 11/27/18 09:03 Last Admin: 10/29/18 08:15 Dose: 100 mls/hr Documented by: Piperacillin Sod/Tazobactam (Sod 2.25 gm/ Sodium Chloride) 50 mls @ 100 mls/hr IV Q8 [facility] [place] Stop: 11/04/18 13:59 Last Infusion: 10/29/18 13:59 Dose: Infused Documented by: Hard Fat/Phenylephrine 40 mg/ (Dextrose) 250 mls @ 0 mls/hr IV CONTINUOUS PRN; Protocol PRN Reason: THIS MED IS NOT "PRN" Stop: 11/27/18 10:45 Last Titration: 10/29/18 16:04 Dose: 80 mcg/min, 30 mls/hr Documented by: Midazolam HCl (Versed Rtu 50 Mg/100 Ml Premix Bag) 50 mg in 100 mls @ 0 mls/hr IV CONTINUOUS PRN; Protocol PRN Reason: THIS MED IS NOT "PRN" Stop: 11/04/18 12:11 Last Titration: 10/28/18 20:20 Dose: 0 mcg/min, 0 mls/hr Documented by: Vancomycin HCl 500 mg/ (Dextrose) 100 mls @ 66.667 mls/hr IV PDIA [facility] Stop: 11/06/18 17:59 Norepinephrine Bitartrate 4 mg (/ Dextrose) 250 mls @ 0 mls/hr IV CONTINUOUS PRN; Protocol PRN Reason: THIS MED IS NOT "PRN" Stop: 11/27/18 19:48 Last Titration: 10/29/18 15:34 Dose: 8 mcg/min, 30 mls/hr Documented by: Fosaprepitant 150 mg/ Sodium (Chloride) 150 mls @ 450 mls/hr IV .PREMED PRN PRN Reason: THIS MED IS NOT "PRN" Stop: 10/29/18 23:59 Last Infusion: 10/29/18 14:51 Dose: Infused Documented by: Vincristine Sulfate 2 mg/ (Syringe) 2 mls @ 60 mls/hr IV .CHEMO PRN PRN Reason: THIS MED IS NOT "PRN" Stop: 10/29/18 23:59 Last Infusion: 10/29/18 14:56 Dose: Infused Documented by: Cyclophosphamide 1,500 mg/ (Sodium Chloride) 500 mls @ 500 mls/hr IV .CHEMO PRN PRN Reason: THIS MED IS NOT "PRN" Stop: 10/29/18 23:59 Last Infusion: 10/29/18 16:22 Dose: Infused Documented by: Doxorubicin HCl 100 mg/ (Syringe) 50 mls @ 200 mls/hr IV .CHEMO PRN PRN Reason: THIS MED IS NOT "PRN" Stop: 10/29/18 23:59 Last Infusion: 10/29/18 15:10 Dose: Infused Documented by: Insulin Human Lispro (Humalog Insulin 100 Unit/1 Ml 3 Ml Vial) 0 - 12 unit SUBCUT Q6 [facility] [place]; Protocol Stop: 11/24/18 11:59 Last Admin: 10/29/18 11:42 Dose: Not Given Documented by: Methylprednisolone Sodium Succinate (Solu-Medrol Inj/Pf 125 Mg/2 Ml Sdv) 60 mg IV DAILY [facility] [place] Stop: 11/02/18 10:01 Morphine Sulfate (Morphine 10 Mg/Ml Inj) 1 mg IV Q2HP PRN PRN Reason: PAIN Stop: 11/04/18 05:25 Last Admin: 10/29/18 13:25 Dose: 1 mg Documented by: Ondansetron HCl (Zofran Inj/Pf 4 Mg/2 Ml Sdv) 4 mg IV Q4HP PRN PRN Reason: FOR NAUSEA/VOMITING Stop: 11/24/18 07:30 Last Admin: 10/26/18 22:38 Dose: 4 mg Documented by: Pegfilgrastim (Neulasta Inj 6 Mg/0.6 Ml Disp.Syrin) 6 mg SUBCUT .TODAY PRN PRN Reason: THIS MED IS NOT "PRN" Stop: 10/30/18 23:59 Silver Sulfadiazine (Silvadene 1% Cream 400 Gm) 1 applic TP PRN PRN PRN Reason: DRESSING CHANGES Stop: 11/24/18 17:26 Last Admin: 10/26/18 10:39 Dose: 1 applic Documented by: - Allergies Allergies/Adverse Reactions: No Known Allergies Allergy (Verified 10/08/18 06:06) - Diet/Activity Discharge Diet: Other (Comments) - npo Physical Exam Vital Signs: Temp Pulse Resp BP Pulse Ox 100.1 F 114 H 22 H 120/70 94 10/29/18 16:00 10/29/18 16:00 10/29/18 16:00 10/29/18 16:00 10/29/18 16:48 Intake & Output 10/28/18 10/29/18 10/30/18 06:59 06:59 06:59 Intake Total 2390 9619 1801 Output Total 220 1995 855 Balance 2177 9612 946 Weight 97.2 kg 99.3 kg General appearance: PRESENT: other - sedated, ventilator,min responsive Head exam: PRESENT: atraumatic Mouth exam: PRESENT: moist Respiratory exam: PRESENT: decreased breath sounds Cardiovascular exam: PRESENT: tachycardia Pulses: PRESENT: normal carotid pulses, normal radial pulses, normal femoral pulses, +1 pedal pulses bilateral Vascular exam: PRESENT: normal capillary refill, pallor GI/Abdominal exam: PRESENT: ascites, diminished bowel sounds, other - left lateral drain in place. 1 small chest tube and 2x 1"tamara drains Gentrourinary exam: PRESENT: indwelling catheter Extremities exam: PRESENT: +1 edema Additional comments: pt with gastric leak from lymphoma. leak noted at high on gastric fundus [address] 1 drain is a small chest tube iwth a tamara fixed at its end there are 2 1 inch tamara drains next to gastric leak. Results Laboratory Results: 10/29/18 05:05 10/29/18 13:32 10/28/18 10/29/18 10/29/18 22:40 05:05 05:05 WBC RBC Hgb Hct MCV MCH MCHC RDW Plt Count Seg Neutrophils % Lymphocytes % Monocytes % Eosinophils % Basophils % Absolute Neutrophils Absolute Lymphocytes Absolute Monocytes Absolute Eosinophils Absolute Basophils Carbonic Acid 0.94 L 0.96 L HCO3/H2CO3 Ratio 13:1 16:1 ABG pH 7.24 L 7.32 L ABG pCO2 31.1 L 31.8 L ABG pO2 143.3 H 105.9 H ABG HCO3 13.0 L 16.0 L ABG O2 Saturation 98.5 H 97.5 ABG Base Excess -13.2 -9.1 FiO2 50% 30% Sodium Potassium Chloride Carbon Dioxide Anion Gap BUN Creatinine Est GFR ( Amer) Est GFR (Non-Af Amer) Glucose Uric Acid 6.1 D Calcium Phosphorus 14.0 H Magnesium 2.2 Total Bilirubin 0.5 AST 151 H ALT 30 Alkaline Phosphatase 105 Total Protein 3.9 L Albumin 2.0 L Prealbumin 4.0 L 10/29/18 10/29/18 10/29/18 05:05 05:05 13:32 WBC 14.9 H RBC 2.87 L Hgb 8.1 L D Hct 25.9 L MCV 90 MCH 28.1 MCHC 31.2 L RDW 15.1 H Plt Count 353 Seg Neutrophils % Not Reportable Lymphocytes % Not Reportable Monocytes % Not Reportable Eosinophils % Not Reportable Basophils % Not Reportable Absolute Neutrophils Not Reportable Absolute Lymphocytes Not Reportable Absolute Monocytes Not Reportable Absolute Eosinophils Not Reportable Absolute Basophils Not Reportable Carbonic Acid HCO3/H2CO3 Ratio ABG pH ABG pCO2 ABG pO2 ABG HCO3 ABG O2 Saturation ABG Base Excess FiO2 Sodium 138.8 138.2 Potassium 7.4 H* D 5.3 H D Chloride 109 H 105 Carbon Dioxide 17 L 22 Anion Gap 13 11 BUN 69 H 47 H D Creatinine 5.59 H 3.79 H Est GFR ( Amer) 13 L 20 L Est GFR (Non-Af Amer) 11 L 16 L Glucose 203 H 129 H Uric Acid Calcium 5.4 L* 6.5 L* Phosphorus Magnesium Total Bilirubin AST ALT Alkaline Phosphatase Total Protein Albumin Prealbumin 10/28/18 10/28/18 10/28/18 03:05 03:05 10:16 Creatine Kinase 104 100 CK-MB (CK-2) 1.00 Troponin I 0.013 10/28/18 10/28/18 10/28/18 10:16 15:40 16:09 Creatine Kinase 72 CK-MB (CK-2) 0.90 0.52 Troponin I 0.012 0.015 10/28/18 10/28/18 10/29/18 22:40 22:40 05:05 Creatine Kinase 95 165 CK-MB (CK-2) 1.14 Troponin I 0.018 10/29/18 10/29/18 10/29/18 05:20 12:21 12:21 Creatine Kinase 196 H CK-MB (CK-2) 1.81 1.28 Troponin I 0.028 0.057 Impressions: Abdomen/Pelvis CT 10/28/18 00:00 IMPRESSION: Decrease in size of the oral contrast collection along the left upper quadrant related to the known gastric leak. The drainage catheter in the aspect of the left upper quadrant has a small pocket of oral contrast adjacent to it with the bulk of the contrast collection noted more posteriorly and separate from the smaller anterior collection. Grossly stable peripancreatic fluid collection. Enlarging left pleural effusion which is now large. Development of a small left pleural effusion. Persistent large amount of ascites. Interstitial thickening with scattered groundglass opacities within the lungs. TECHNICAL DOCUMENTATION: Quality ID # 436: Final reports with documentation of one or more dose reduction techniques (e.g., Automated exposure control, adjustment of the mA and/or kV according to patient size, use of iterative reconstruction technique) copyright 2010 [employer]- All Rights Reserved Chest CT 10/28/18 00:00 IMPRESSION: Decrease in size of the oral contrast collection along the left upper quadrant related to the known gastric leak. The drainage catheter in the aspect of the left upper quadrant has a small pocket of oral contrast adjacent to it with the bulk of the contrast collection noted more posteriorly and separate from the smaller anterior collection. Grossly stable peripancreatic fluid collection. Enlarging left pleural effusion which is now large. Development of a small left pleural effusion. Persistent large amount of ascites. Interstitial thickening with scattered groundglass opacities within the lungs. TECHNICAL DOCUMENTATION: Quality ID # 436: Final reports with documentation of one or more dose reduction techniques (e.g., Automated exposure control, adjustment of the mA and/or kV according to patient size, use of iterative reconstruction technique) copyright 2010 [employer]- All Rights Reserved Chest X-Ray 10/29/18 06:00 IMPRESSION: No change. Plan Discharge Plan: plan is for transfer to [facility] for cvvh. pt is in acute renal failure on chemorx and is not tolerating hemodialysis PLEASE SEE DICTATED TRANSFER SUMMARY. Time Spent: Greater than 30 Minutes
--- NOTE | 2018-10-29 18:22 | HX & PHYSICAL/TRANSFER SUMM E ---
History and Physical/Transfer Summary NAME: MARILUZ SANDOVAL : 1960 AGE: 58Y ADMITTED: 10/25/2018 TRANSFERRED: 10/29/2018 DISPOSITION: Transfer to [facility] for a higher level of care. SUMMARY: The patient is a 58-year-old male who approximately 2 months ago was noted to have an acute onset of left posterior flank pain. CT scan at that time showed a fairly large mass that was in the hilum of his spleen that extended to his pancreas. He underwent diagnostic laparoscopy, which was converted to open laparotomy and a distal pancreatectomy- splenectomy. At that time he had a significant amount of tumor infiltration of his stomach and omentum. The distal pancreas and his spleen were removed and his stomach remained in place, and drains were placed at the tail of the pancreas after a stapled distal pancreatectomy. He recovered fairly well from that procedure 2 months ago and pathology results were reviewed at [facility] which proved it to be a B-cell lymphoma. Subsequent to that the patient started to develop increased lymphadenopathy in both axilla and a PET scan was obtained, which showed wildly disseminated lymphoma. Plans were for chemotherapy. He then underwent port-A-Cath placement for planned chemotherapy. In addition to that he developed a gastric leak from the greater curvature of the stomach that was initially small and controlled well with the Tian-Bell drain that was left in place during surgery. He underwent numerous upper GI swallows which showed a small amount of contrast leak which was well captured by the drain, which developed a fistula to the left upper quadrant and no extravasation of dye other than directly out the drain tract. He remained afebrile at home for approximately 6 weeks postop, tolerating a liquid diet and having a normal white count. After placement of his port-A-Cath he then started chemotherapy for the B-cell lymphoma approximately 1 week ago. Approximately 2 days after starting chemotherapy he developed acute onset left posterior flank pain and back pain. He became dehydrated and had nausea and vomiting and he came into the emergency room on 10/25/2018. He was admitted for pain management and hydration and the following day on 10/26/2018 he felt better and although he knew he was noted to have an increased white blood count of 21,000. A CT scan was obtained which showed the previously seen fluid collection that was well-drained by the Tian-Bell drain in the left upper quadrant and there was no evidence of any extravasation again of any contrast. There was dye within his colon and small bowel and ascites that had been increasing in the abdomen along the right suprahepatic area as well as in the pelvis. On 10/27/2018 he appeared somewhat better. He was less dehydrated. He was able to converse. He was currently suffering from a tumor lysis syndrome 2 days after his chemotherapy. We continued him on IV antibiotics for his elevated white blood count and IV hydration. Following evening on 10/27/2018 a rapid response was called to his hospital room. He became unresponsive and hypotensive after pain medication was given. He was transferred to the intensive care unit and on chest x-ray was noted to have a very large pleural effusion, which caused him some respiratory distress. He was intubated. Later that afternoon it was decided that he be taken to the operating room for chest tube placement as well as an exploration of his left upper quadrant secondary to the gastric fistula and possible abscess causing sepsis. He was taken to the operating room in the evening on 10/28/2018 where a hemodialysis catheter was placed as well as a chest tube in the left chest and which drained approximately 600 to 800 mL of serous fluid, which was sent for culture and cell count. A laparotomy was then performed to evaluate his left upper quadrant for any loculated abscess. At that laparotomy it was noted that he had a significant amount of miliary studding of his small bowel as well as thick infiltration of tumor into his omentum. In his left upper quadrant there was a large tumor mass that was extending up to the diaphragm on the left side with diaphragmatic studding and a moderate sized hole within the fundus of the stomach. At this point we were unable to close that secondary to his infiltration of tumor and, therefore, I elected to drain it widely. An NG tube was placed and manipulated into the body of the stomach and large drains were placed in the left upper quadrant around the gastric leak. There were 3 drains placed, 1 small chest tube with a Sergio drain attached to the end of it and 2 separate 1 inch Sergio drains, all brought out through his left flank. His wound was closed and he was brought to the intensive care unit. He remained hypotensive the first night but improved overnight with IV hydration and vasopressors. He remained anuric with acute renal failure, felt secondary to either antibiotics or tumor lysis syndrome and he was started on hemodialysis the following day with potassium with 7.4. He had difficulty with the hemodialysis, it dropped his blood pressure during hemodialysis and we were unable to remove any fluid during dialysis. His potassium did improve to 5.4 and a consultation with nephrology and oncology it was felt that he would be better served with continuous veno-veno hemofiltration. Therefore, a call was made to tertiary medical centers with that capability and the current plans are to transfer him to [facility] in [place] for CVVH. CURRENT STATUS: He is on a ventilator with an FiO2 of 35%, maintaining a good SaO2s. His last pH was 7.31. His last pO2 is 105.9, pCO2 is 31.8 on 30% FiO2. White blood count is 14.9, hemoglobin is 8.1, hematocrit 25.9, platelet count is 353. His last electrolytes as of 4 this afternoon on 10/29/2018; sodium 138, potassium is 5.3, chloride 105, CO2 is 22, BUN is 47, creatinine 3.8 and that is after dialysis. He remains somewhat responsive to verbal commands. He has a chest tube in his left chest draining serous fluid on suction to a pleurovac. He has 2 drains in his left flank. One is a chest tube and 2 Sergio drains, both being drained into a wound drainage bag. He received chemotherapy this afternoon and is awaiting transfer for CVVH. His condition remains critical. DISCHARGE DIAGNOSES 1. Large B-cell lymphoma. 2. Gastric leak. 3. Acute renal failure. 4. Tumor lysis syndrome. 5. Diabetes type 2. DICTATING PHYSICIAN: MARGY RODRIGUEZ M.D. [id number] PHY#: [id number] ID: [id number] JOB#: [id number] ACCT: [id number] cc:MARGY RODRIGUEZ M.D. >
[2018-10-29 22:20] VITALS: BP 90/58
[2018-10-30] MEDS ORDERED: PEGFILGRASTIM INJ 6 MG/0.6 ML DISP.SYRIN SUBCUT PRN (08:00)
[2018-10-30 08:44] LABS: HEPATITIS A AB IGM Negative (Negative); HEPATITIS B CORE AB IGM Negative (Negative); HEPATITS B SURFACE ANTIGEN Negative (Negative)
[2018-10-30 08:44] LABS: HEPATITS B SURFACE ANTIGEN Negative (Negative)
[2018-10-30] MEDS ORDERED: METHYLPREDNISOLONE INJ 125 MG/2 ML SDV IV SCH (10:00)
[2018-10-30 13:22] LABS: HEPATITIS C VIRUS ANTIBODY <0.1 s/co ratio (0.0-0.9)
[2018-10-30 13:22] LABS: HEPATITIS B CORE AB TOT Negative (Negative); HEPATITIS B SURFACE AB QUANT <3.1 mIU/mL (Immunity>9)
[2018-10-30 13:23] LABS: TOTAL PROTEIN BODY FLUID 2.4 g/dL (.)
[2018-10-30 14:38] LABS: HEPATITIS C QUANTITATION HCV Not Detected IU/mL (.)
[2018-10-30] MEDS ORDERED: VANCOMYCIN HCL 500 MG in DEXTROSE 5%-WATER 100 ML IV SCH (18:00)
--- NOTE | 2018-10-31 16:20 | PDOC PROGRESS REPORT ---
Subjective Progress Note for:: 10/29/18 Subjective:: Intubated and sedated Reason For Visit: LYMPHOMA,HYPERKALEMIA Physical Exam Vital Signs: Temp Pulse Resp BP Pulse Ox 101.6 F H 116 H 23 H 123/62 98 10/29/18 08:00 10/29/18 08:00 10/29/18 08:00 10/29/18 08:00 10/29/18 08:22 Intake & Output 10/28/18 10/29/18 10/30/18 06:59 06:59 06:59 Intake Total 2397 7497 285 Output Total 220 1995 0 Balance 2177 5502 285 Weight 97.2 kg 99.3 kg General appearance: PRESENT: no acute distress, disheveled, well-developed, well-nourished. ABSENT: cooperative Head exam: PRESENT: atraumatic, normocephalic Eye exam: PRESENT: conjunctiva pale. ABSENT: EOMI, nystagmus, scleral icterus Mouth exam: PRESENT: dry mucosa, neck supple, tongue midline, other - ET tube in place Neck exam: ABSENT: carotid bruit, JVD, lymphadenopathy, thyromegaly, tracheal deviation, tracheostomy Respiratory exam: PRESENT: decreased breath sounds, prolonged expiratory phas, rales, rhonchi, symmetrical, unlabored. ABSENT: retraction, stridor, tachypnea Cardiovascular exam: PRESENT: RRR, +S1, +S2, tachycardia Pulses: PRESENT: normal radial pulses GI/Abdominal exam: PRESENT: other - Status post surgery multiple drains Gentrourinary exam: PRESENT: indwelling catheter Extremities exam: ABSENT: calf tenderness, clubbing, joint swelling, pedal edema Musculoskeletal exam: ABSENT: deformity, dislocation Neurological exam: ABSENT: awake Skin exam: PRESENT: dry, warm Results Laboratory Results: 10/29/18 05:05 10/29/18 05:05 10/28/18 10/28/18 10/28/18 10:16 10:16 10:16 WBC 20.4 H RBC 3.65 L Hgb 10.3 L Hct 32.9 L MCV 90 MCH 28.1 MCHC 31.2 L RDW 15.1 H Plt Count 451 H Seg Neutrophils % Not Reportable Lymphocytes % Not Reportable Monocytes % Not Reportable Eosinophils % Not Reportable Basophils % Not Reportable Absolute Neutrophils Not Reportable Absolute Lymphocytes Not Reportable Absolute Monocytes Not Reportable Absolute Eosinophils Not Reportable Absolute Basophils Not Reportable Carbonic Acid HCO3/H2CO3 Ratio ABG pH ABG pCO2 ABG pO2 ABG HCO3 ABG O2 Saturation ABG Base Excess FiO2 Sodium 141.7 Potassium 5.2 H Chloride 104 Carbon Dioxide 20 L Anion Gap 18 BUN 66 H Creatinine 4.96 H Est GFR ( Amer) 15 L Est GFR (Non-Af Amer) 12 L Glucose 180 H Uric Acid 24.5 H Calcium 6.0 L* Phosphorus Magnesium Total Bilirubin AST ALT Alkaline Phosphatase Total Protein Albumin Prealbumin Blood Type Antibody Screen 10/28/18 10/28/18 10/28/18 10:16 10:45 12:30 WBC RBC Hgb Hct MCV MCH MCHC RDW Plt Count Seg Neutrophils % Lymphocytes % Monocytes % Eosinophils % Basophils % Absolute Neutrophils Absolute Lymphocytes Absolute Monocytes Absolute Eosinophils Absolute Basophils Carbonic Acid 1.37 H HCO3/H2CO3 Ratio 14:1 ABG pH 7.26 L ABG pCO2 45.6 H ABG pO2 112.8 H ABG HCO3 19.9 L ABG O2 Saturation 97.5 ABG Base Excess -7.0 FiO2 50% Sodium Potassium Chloride Carbon Dioxide Anion Gap BUN Creatinine Est GFR ( Amer) Est GFR (Non-Af Amer) Glucose Uric Acid Calcium Phosphorus Magnesium Total Bilirubin AST ALT Alkaline Phosphatase Total Protein 4.9 L Albumin Prealbumin Blood Type O POSITIVE Antibody Screen NEGATIVE 10/28/18 10/28/18 10/29/18 14:25 22:40 05:05 WBC RBC Hgb Hct MCV MCH MCHC RDW Plt Count Seg Neutrophils % Lymphocytes % Monocytes % Eosinophils % Basophils % Absolute Neutrophils Absolute Lymphocytes Absolute Monocytes Absolute Eosinophils Absolute Basophils Carbonic Acid 0.98 L 0.94 L HCO3/H2CO3 Ratio 17:1 13:1 ABG pH 7.35 7.24 L ABG pCO2 32.7 L 31.1 L ABG pO2 146.8 H 143.3 H ABG HCO3 17.6 L 13.0 L ABG O2 Saturation 98.8 H 98.5 H ABG Base Excess -7.1 -13.2 FiO2 50% 50% Sodium Potassium Chloride Carbon Dioxide Anion Gap BUN Creatinine Est GFR ( Amer) Est GFR (Non-Af Amer) Glucose Uric Acid 6.1 D Calcium Phosphorus 14.0 H Magnesium 2.2 Total Bilirubin 0.5 AST 151 H ALT 30 Alkaline Phosphatase 105 Total Protein 3.9 L Albumin 2.0 L Prealbumin 4.0 L Blood Type Antibody Screen 10/29/18 10/29/18 10/29/18 05:05 05:05 05:05 WBC 14.9 H RBC 2.87 L Hgb 8.1 L D Hct 25.9 L MCV 90 MCH 28.1 MCHC 31.2 L RDW 15.1 H Plt Count 353 Seg Neutrophils % Not Reportable Lymphocytes % Not Reportable Monocytes % Not Reportable Eosinophils % Not Reportable Basophils % Not Reportable Absolute Neutrophils Not Reportable Absolute Lymphocytes Not Reportable Absolute Monocytes Not Reportable Absolute Eosinophils Not Reportable Absolute Basophils Not Reportable Carbonic Acid 0.96 L HCO3/H2CO3 Ratio 16:1 ABG pH 7.32 L ABG pCO2 31.8 L ABG pO2 105.9 H ABG HCO3 16.0 L ABG O2 Saturation 97.5 ABG Base Excess -9.1 FiO2 30% Sodium 138.8 Potassium 7.4 H* D Chloride 109 H Carbon Dioxide 17 L Anion Gap 13 BUN 69 H Creatinine 5.59 H Est GFR ( Amer) 13 L Est GFR (Non-Af Amer) 11 L Glucose 203 H Uric Acid Calcium 5.4 L* Phosphorus Magnesium Total Bilirubin AST ALT Alkaline Phosphatase Total Protein Albumin Prealbumin Blood Type Antibody Screen 10/28/18 10/28/18 10/28/18 03:05 03:05 10:16 Creatine Kinase 104 100 CK-MB (CK-2) 1.00 Troponin I 0.013 10/28/18 10/28/18 10/28/18 10:16 15:40 16:09 Creatine Kinase 72 CK-MB (CK-2) 0.90 0.52 Troponin I 0.012 0.015 10/28/18 10/28/18 10/29/18 22:40 22:40 05:05 Creatine Kinase 95 165 CK-MB (CK-2) 1.14 Troponin I 0.018 10/29/18 05:20 Creatine Kinase CK-MB (CK-2) 1.81 Troponin I 0.028 Impressions: Abdomen/Pelvis CT 10/28/18 00:00 IMPRESSION: Decrease in size of the oral contrast collection along the left upper quadrant related to the known gastric leak. The drainage catheter in the aspect of the left upper quadrant has a small pocket of oral contrast adjacent to it with the bulk of the contrast collection noted more posteriorly and separate from the smaller anterior collection. Grossly stable peripancreatic fluid collection. Enlarging left pleural effusion which is now large. Development of a small left pleural effusion. Persistent large amount of ascites. Interstitial thickening with scattered groundglass opacities within the lungs. TECHNICAL DOCUMENTATION: Quality ID # [id number]: Final reports with documentation of one or more dose reduction techniques (e.g., Automated exposure control, adjustment of the mA and/or kV according to patient size, use of iterative reconstruction technique) copyright 2010 [employer]- All Rights Reserved Chest CT 10/28/18 00:00 IMPRESSION: Decrease in size of the oral contrast collection along the left upper quadrant related to the known gastric leak. The drainage catheter in the aspect of the left upper quadrant has a small pocket of oral contrast adjacent to it with the bulk of the contrast collection noted more posteriorly and separate from the smaller anterior collection. Grossly stable peripancreatic fluid collection. Enlarging left pleural effusion which is now large. Development of a small left pleural effusion. Persistent large amount of ascites. Interstitial thickening with scattered groundglass opacities within the lungs. TECHNICAL DOCUMENTATION: Quality ID # [id number]: Final reports with documentation of one or more dose reduction techniques (e.g., Automated exposure control, adjustment of the mA and/or kV according to patient size, use of iterative reconstruction technique) copyright 2010 [employer]- All Rights Reserved Chest X-Ray 10/29/18 06:00 IMPRESSION: No change. 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
== END 2018-10-30 00:25 | disposition short-term general hospital (02) | DRG 939 ==
LOC: ER 04:50 → EH 08:07 → 4S 12:43 → 3W 10-26 19:11 → ICU 10-28 03:53
PROVIDERS: ADMIT Surgery; ATTEND Surgery
PROC: 3E0F73Z Introduction of Anti-inflammatory into Respiratory Tract, Via Natural or Artificial Opening (ICD-10-PCS; 2018-10-26)
PROC: B54BZZA Ultrasonography of Right Lower Extremity Veins, Guidance (ICD-10-PCS; 2018-10-28)
PROC: 0W9B00Z Drainage of Left Pleural Cavity with Drainage Device, Open Approach (ICD-10-PCS; 2018-10-28)
PROC: 3E03305 Introduction of Other Antineoplastic into Peripheral Vein, Percutaneous Approach (ICD-10-PCS; 2018-10-28)
PROC: 02H633Z Insertion of Infusion Device into Right Atrium, Percutaneous Approach (ICD-10-PCS; 2018-10-28)
PROC: B244ZZZ Ultrasonography of Right Heart (ICD-10-PCS; 2018-10-28)
PROC: 5A1945Z Respiratory Ventilation, 24-96 Consecutive Hours (ICD-10-PCS; 2018-10-28)
PROC: 0BH17EZ Insertion of Endotracheal Airway into Trachea, Via Natural or Artificial Opening (ICD-10-PCS; 2018-10-28)
PROC: 0W9G0ZX Drainage of Peritoneal Cavity, Open Approach, Diagnostic (ICD-10-PCS; principal; 2018-10-28 15:30)
PROC: 06HM33Z Insertion of Infusion Device into Right Femoral Vein, Percutaneous Approach (ICD-10-PCS; 2018-10-28 15:30)
DX: G89.3 Neoplasm related pain (acute) (chronic) (principal); E88.3 Tumor lysis syndrome; J96.00 Acute respiratory failure, unspecified whether with hypoxia or hypercapnia; A41.9 Sepsis, unspecified organism; C83.33 Diffuse large B-cell lymphoma, intra-abdominal lymph nodes; J90 Pleural effusion, not elsewhere classified; N17.9 Acute kidney failure, unspecified; R65.21 Severe sepsis with septic shock; R19.09 Other intra-abdominal and pelvic swelling, mass and lump; E87.5 Hyperkalemia; I10 Essential (primary) hypertension; E11.9 Type 2 diabetes mellitus without complications; F32.9 Major depressive disorder, single episode, unspecified; I95.9 Hypotension, unspecified; D64.9 Anemia, unspecified; D72.829 Elevated white blood cell count, unspecified; E78.5 Hyperlipidemia, unspecified; E86.0 Dehydration; I87.8 Other specified disorders of veins; Z78.1 Physical restraint status; E83.51 Hypocalcemia; Z79.4 Long term (current) use of insulin; Z79.899 Other long term (current) drug therapy; Z90.81 Acquired absence of spleen; Z87.891 Personal history of nicotine dependence; Z79.52 Long term (current) use of systemic steroids; Z90.411 Acquired partial absence of pancreas; Z88.6 Allergy status to analgesic agent; Z88.8 Allergy status to other drugs, medicaments and biological substances; Z51.11 Encounter for antineoplastic chemotherapy
CPT/HCPCS: 31500; 36415; 71045; 71250; 74176; 790; 80048; 80053; 80074; 80076; 80202; 81001; 82271; 82550; 82553; 82803; 82945; 82962; 83615; 83690; 83735; 84100; 84134; 84155; 84157; 84311; 84484; 84550; 85025; 85610; 85730; 86317; 86704; 86850; 86900; 86901; 87040; 87070; 87075; 87077; 87186; 87205; 87340; 87522; 88307; 93005; 93010; 94002; 94003; 94640; 96361; 96365; 96375; 96376; 96409; 96411; 96413; 99285; C1751; C1752; C1758; J0330; J0610; J1170; J1335; J1450; J1453; J1642; J1644; J1815; J1885; J2250; J2270; J2370; J2405; J2469; J2543; J2704; J2783; J2930; J3010; J3370; J3480; J3490; J7030; J7040; J7060; J9000; J9070; J9370; S0164